=== PATIENT | male | born 2005 | race Hispanic/Latino ===

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

== ENCOUNTER 2023-04-21 16:39 | Emergency (ER) | payer OTHER, SELFPAY ==
--- OUTSIDE RECORDS SUMMARY | 2023-04-21 16:43 | XMS REPORT | Continuity of Care Document ---
:2005 Author Organization [facility] t Address [address] [facility] [place] [address] Care Team Providers Name Role Phone LIEN CEE Primary Care Physician Unavailable LLUVIA SAMAYOA Attending Clinician Unavailable Lluvia Samayoa MD Attending Clinician Doctor Unassigned, [place] Attending Clinician Unavailable YARED MENDOSA Attending Clinician Unavailable HORTENSIA PAL Attending Clinician Unavailable Hortensia Pal PA-C Attending Clinician LIEN CEE Attending Clinician Unavailable Nurse, Dewey Pedlenka Attending Clinician Unavailable Lien Cee MD Attending Clinician BRAYAN NARVAEZ Attending Clinician Unavailable Brayan Narvaez DO Attending Clinician Thuy Waller MD Attending Clinician THUY WALLER Attending Clinician Unavailable Keira Richardson DO Attending Clinician PROMISE SALEEM Attending Clinician Unavailable Deniz Hines OT Attending Clinician Unavailable Promise Saleem MD Attending Clinician Madi Ivey MD Attending Clinician [phone] MADI IVEY Attending Clinician Unavailable Augustine Garza Attending Clinician AUGUSTINE KAYE Attending Clinician Unavailable Elisa Mejia MD Attending Clinician PROMISE SALEEM Admitting Clinician Unavailable Payers Payer Name Policy Type Policy Number Effective Date Expiration Date Penelope sparks [facility] [id number] 2017 00:00:00 [place] [id number] 2023 00:00:00 Problems Condition Condition Condition Status Onset Resolution Last Treating Co mments Source Name Details Category Date Date Treatment Clinician Date Right Right Disease Active Univers wrist pain wrist pain 6-08 it y of 00:00: Medical Branch Decreased Decreased Disease Active Uni vers range of range of 6-08 [place] wrist Branch Pain of Pain of Disease Active Univers right hand right hand 6-08 it y of 00:00: Medical Branch Decreased 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 Medications Ordered Filled Start Stop Current Ordering Indication Dosage Frequency Signature Comments Components Source Medication Medication Date Date Medication? Clinician (SIG) Name Name ondansetron 2021-0 Yes [id number] 4mg Take 1 Univers 4 mg 3-08 tablet by ity of disintegrat 00:00: mouth [place] ing tablet 00 every 8 Medica l (eight) Branch hours as needed for Nausea and Vomiting (N/V). ondansetron 0 Yes [id number] 4mg Take 1 Univers 4 mg 3-08 tablet by ity of disintegrat 00:00: mouth [place] ing tablet 00 every 8 Medica l (eight) Branch hours as needed for Nausea and Vomiting (N/V). ondansetron 0 Yes [id number] 4mg Take 1 Univers 4 mg 3-08 tablet by ity of disintegrat 00:00: mouth [place] ing tablet 00 every 8 Medica l (eight) Branch hours as needed for Nausea and Vomiting (N/V). ondansetron 0 Yes [id number] 4mg Take 1 Univers 4 mg 3-08 tablet by ity of disintegrat 00:00: mouth [place] ing tablet 00 every 8 Medica l (eight) Branch hours as needed for Nausea and Vomiting (N/V). FLUoxetine 0 Yes [id number] 20mg Take 1 U nivers 20 mg 8-05 capsule by ity of capsule 00:00: mouth [place] 00 daily. Medical Branch FLUoxetine 0 Yes [id number] 10mg Take 1 U nivers 10 mg 8-05 capsule by ity of capsule 00:00: mouth [place] 00 daily. Medical Branch hydrOXYzine 2020-0 Yes [id number] 25mg Take 1 Univers 25 mg 8-05 tablet by ity of tablet 00:00: mouth [place] 00 every 8 Medical (eight) Branch hours as needed for Anxiety. FLUoxetine 2020-0 Yes [id number] 20mg Take 1 U nivers 20 mg 8-05 capsule by ity of capsule 00:00: mouth [place] 00 daily. Medical Branch FLUoxetine 2020-0 Yes [id number] 10mg Take 1 U nivers 10 mg 8-05 capsule by ity of capsule 00:00: mouth [place] 00 daily. Medical Branch hydrOXYzine 2020-0 Yes [id number] 25mg Take 1 Univers 25 mg 8-05 tablet by ity of tablet 00:00: mouth [place] 00 every 8 Medical (eight) Branch hours as needed for Anxiety. FLUoxetine 2020-0 Yes [id number] 20mg Take 1 U nivers 20 mg 8-05 capsule by ity of capsule 00:00: mouth [place] 00 daily. Medical Branch FLUoxetine 0 Yes [id number] 10mg Take 1 U nivers 10 mg 8-05 capsule by ity of capsule 00:00: mouth [place] 00 daily. Medical Branch hydrOXYzine 0 Yes [id number] 25mg Take 1 Univers 25 mg 8-05 tablet by ity of tablet 00:00: mouth [place] 00 every 8 Medical (eight) Branch hours as needed for Anxiety. FLUoxetine 0 Yes [id number] 20mg Take 1 U nivers 20 mg 8-05 capsule by ity of capsule 00:00: mouth [place] 00 daily. Medical Branch FLUoxetine 0 Yes [id number] 10mg Take 1 U nivers 10 mg 8-05 capsule by ity of capsule 00:00: mouth [place] 00 daily. Medical Branch hydrOXYzine Yes [id number] 25mg Take 1 Univers 25 mg 8-05 tablet by ity of tablet 00:00: mouth [place] 00 every 8 Medical (eight) Branch hours as needed for Anxiety. FLUoxetine Yes [id number] 20mg Take 1 U nivers 20 mg 6-22 capsule by ity of capsule 00:00: mouth [place] 00 daily. Medical Branch FLUoxetine 0 Yes [id number] 20mg Take 1 U nivers 20 mg 6-22 capsule by ity of capsule 00:00: mouth [place] 00 daily. Medical Branch FLUoxetine 0 Yes [id number] 20mg Take 1 U nivers 20 mg 6-22 capsule by ity of capsule 00:00: mouth [place] 00 daily. Medical Branch FLUoxetine 0 Yes [id number] 20mg Take 1 U nivers 20 mg 6-22 capsule by ity of capsule 00:00: mouth [place] 00 daily. Medical Branch omeprazole 2020-0 Yes [id number] 20mg Take 1 Univers 20 mg 3-05 capsule by ity of capsule 00:00: mouth [place] 00 daily. Medical Branch omeprazole 2020-0 Yes [id number] 20mg Take 1 Univers 20 mg 3-05 capsule by ity of capsule 00:00: mouth [place] 00 daily. Medical Branch omeprazole 2020-0 Yes [id number] 20mg Take 1 Univers 20 mg 3-05 capsule by ity of capsule 00:00: mouth [place] 00 daily. Medical Branch omeprazole 0 Yes [id number] 20mg Take 1 Univers 20 mg 3-05 capsule by ity of capsule 00:00: mouth [place] [address] [facility] Immunizations Ordered Immunization Filled Immunization Date Status Commen ts Source Name Name Meningococcal 2020-11-16 Completed University of Polysaccharide 00:00:00 [place] Medi eladia (groups A, C, Y and Branc h W-135) conjugate vaccine (MCV4P) Meningococcal B, OMV 2020-11-16 Completed Univ ersity of 00:00:00 [facility] Meningococcal 2020-11-16 Completed University of Polysaccharide 00:00:00 [place] Medi eladia (groups A, C, Y and Branc h W-135) conjugate vaccine (MCV4P) Meningococcal B, OMV 2020-11-16 Completed Univ ersity of 00:00:00 [facility] Meningococcal 2020-11-16 Completed University of Polysaccharide 00:00:00 [place] Medi eladia (groups A, C, Y and Branc h W-135) conjugate vaccine (MCV4P) Meningococcal B, OMV 2020-11-16 Completed Univ ersity of 00:00:00 [facility] Meningococcal 2020-11-16 Completed University of Polysaccharide 00:00:00 [place] Medi eladia (groups A, C, Y and Branc h W-135) conjugate vaccine (MCV4P) Meningococcal B, OMV 2020-11-16 Completed Univ ersity of 00:00:00 [facility] HPV 2016-03-01 Completed University of 00:00:00 [facility] HPV 2016-03-01 Completed University of 00:00:00 [facility] HPV 2016-03-01 Completed University of 00:00:00 [facility] HPV 2016-03-01 Completed University of 00:00:00 [facility] HPV 2014-11-25 Completed University of 00:00:00 [facility] TDAP 2014-11-25 Completed University of 00:00:00 [facility] Meningococcal 2014-11-25 Completed University of Polysaccharide 00:00:00 [place] Medi eladia (groups A, C, Y and Branc h W-135) conjugate vaccine (MCV4P) HPV 2014-11-25 Completed University of 00:00:00 [facility] TDAP 2014-11-25 Completed University of 00:00:00 [facility] Meningococcal 2014-11-25 Completed University of Polysaccharide 00:00:00 [place] Medi eladia (groups A, C, Y and Branc h W-135) conjugate vaccine (MCV4P) HPV 2014-11-25 Completed University of 00:00:00 [facility] TDAP 2014-11-25 Completed University of 00:00:00 [facility] Meningococcal 2014-11-25 Completed University of Polysaccharide 00:00:00 [place] Medi eladia (groups A, C, Y and Branc h W-135) conjugate vaccine (MCV4P) HPV 2014-11-25 Completed University of 00:00:00 [facility] TDAP 2014-11-25 Completed University of 00:00:00 [facility] Meningococcal 2014-11-25 Completed University of Polysaccharide 00:00:00 [place] Medi eladia (groups A, C, Y and Branc h W-135) conjugate vaccine (MCV4P) DTAP 2007-10-24 Completed University of 00:00:00 [facility] MMR 2007-10-24 Completed University of 00:00:00 [facility] Polio (IPV/OPV) 2007-10-24 Completed Universit y of 00:00:00 [facility] Varicella 2007-10-24 Completed University of (varivax)(chicken 00:00:00 [place] M edical pox) Branch DTAP 2007-10-24 Completed University of 00:00:00 [facility] MMR 2007-10-24 Completed University of 00:00:00 [facility] Polio (IPV/OPV) 2007-10-24 Completed Universit y of 00:00:00 [facility] Varicella 2007-10-24 Completed University of (varivax)(chicken 00:00:00 [place] M edical pox) Branch DTAP 2007-10-24 Completed University of 00:00:00 [facility] MMR 2007-10-24 Completed University of 00:00:00 [facility] Polio (IPV/OPV) 2007-10-24 Completed Universit y of 00:00:00 [facility] Varicella 2007-10-24 Completed University of (varivax)(chicken 00:00:00 [place] M edical pox) Branch DTAP 2007-10-24 Completed University of 00:00:00 [facility] MMR 2007-10-24 Completed University of 00:00:00 [facility] Polio (IPV/OPV) 2007-10-24 Completed Universit y of 00:00:00 [facility] Varicella 2007-10-24 Completed University of (varivax)(chicken 00:00:00 [place] M edical pox) Branch HEPATITIS A 2006-09-24 Completed University of 00:00:00 [facility] HEPATITIS A 2006-09-24 Completed University of 00:00:00 [facility] HEPATITIS A 2006-09-24 Completed University of 00:00:00 [facility] HEPATITIS A 2006-09-24 Completed University of 00:00:00 [facility] HEPATITIS A 2005-09-26 Completed University of 00:00:00 [facility] HEPATITIS A 2005-09-26 Completed University of 00:00:00 [facility] HEPATITIS A 2005-09-26 Completed University of 00:00:00 [facility] HEPATITIS A 2005-09-26 Completed University of 00:00:00 [facility] DTAP 2005-02-09 Completed University of 00:00:00 [facility] Pneumococcal 7 2005-02-09 Completed University of Conjugate, PCV7 00:00:00 [place] Med ical (Prevnar7) Branch Pneumococcal 13 2005-02-09 Completed Universit y of Conjugate, PCV13 00:00:00 [place] Me dical (Prevnar 13) Branch DTAP 2005-02-09 Completed University of 00:00:00 [facility] Pneumococcal 7 2005-02-09 Completed University of Conjugate, PCV7 00:00:00 [place] Med ical (Prevnar7) Branch Pneumococcal 13 2005-02-09 Completed Universit y of Conjugate, PCV13 00:00:00 [place] Me dical (Prevnar 13) Branch Pneumococcal 13 2005-02-09 Completed Universit y of Conjugate, PCV13 00:00:00 [place] Me dical (Prevnar 13) Branch Pneumococcal 13 2005-02-09 Completed Universit y of Conjugate, PCV13 00:00:00 [place] Me dical (Prevnar 13) Branch HIB 4 Dose Schedule 2004 Completed Unive rsity of 00:00:00 [facility] MMR 2004 Completed University of 00:00:00 [facility] Varicella 2004 Completed University of (varivax)(chicken 00:00:00 [place] M edical pox) Branch HIB 4 Dose Schedule 2004 Completed Unive rsity of 00:00:00 [facility] MMR 2004 Completed University of 00:00:00 [facility] Branch Varicella 2004 Completed University of (varivax)(chicken 00:00:00 [place] M edical pox) Branch HIB 4 Dose Schedule 2004 Completed Unive rsity of 00:00:00 [place] [facility] MMR 2004 Completed University of 00:00:00 [facility] Branch Varicella 2004 Completed University of (varivax)(chicken 00:00:00 [place] M edical pox) Branch HIB 4 Dose Schedule 2004 Completed Unive rsity of 00:00:00 [facility] Branch MMR 2004 Completed University of 00:00:00 [facility] Branch Varicella 2004 Completed University of (varivax)(chicken 00:00:00 [place] M edical pox) Branch Pneumococcal 7 2004-07-11 Completed University of Conjugate, PCV7 00:00:00 [place] Med ical (Prevnar7) Branch Pneumococcal 13 2004-07-11 Completed Universit y of Conjugate, PCV13 00:00:00 [place] Tn dical (Prevnar 13) Branch Pneumococcal 7 2004-07-11 Completed University of Conjugate, PCV7 00:00:00 [place] [facility] ical (Prevnar7) Branch Pneumococcal 13 2004-07-11 Completed Universit y of Conjugate, PCV13 00:00:00 [place] Me dical (Prevnar 13) Branch Pneumococcal 13 2004-07-11 Completed Universit y of Conjugate, PCV13 00:00:00 [place] Me dical (Prevnar 13) Branch Pneumococcal 13 2004-07-11 Completed Universit y of Conjugate, PCV13 00:00:00 [place] Tn dical (Prevnar 13) Branch HIB 4 Dose Schedule 2004-04-22 Completed Unive rsity of 00:00:00 [facility] Pediarix (dtap/hep 2004-04-22 Completed Univer sity of B/ipv) 00:00:00 [facility] HIB 4 Dose Schedule 2004-04-22 Completed Unive rsity of 00:00:00 [facility] Pediarix (dtap/hep 2004-04-22 Completed Univer sity of B/ipv) 00:00:00 [facility] Pediarix (dtap/hep 2004-02-25 Completed Univer sity of B/ipv) 00:00:00 [place] [facility] Pneumococcal 7 2004-02-25 Completed University of Conjugate, PCV7 00:00:00 [place] [facility] ical (Prevnar7) Branch Pneumococcal 13 2004-02-25 Completed Universit y of Conjugate, PCV13 00:00:00 [place] Me dical (Prevnar 13) Branch Pediarix (dtap/hep 2004-02-25 Completed Univer sity of B/ipv) 00:00:00 [facility] Pneumococcal 7 2004-02-25 Completed University of Conjugate, PCV7 00:00:00 [place] Med ical (Prevnar7) Branch Pneumococcal 13 2004-02-25 Completed Universit y of Conjugate, PCV13 00:00:00 [place] Me dical (Prevnar 13) Branch Pneumococcal 13 2004-02-25 Completed Universit y of Conjugate, PCV13 00:00:00 [place] Me dical (Prevnar 13) Branch Pneumococcal 13 2004-02-25 Completed Universit y of Conjugate, PCV13 00:00:00 [place] Me dical (Prevnar 13) Branch HIB 4 Dose Schedule 2004-02-19 Completed Unive rsity of 00:00:00 [facility] HIB 4 Dose Schedule 2004-02-19 Completed Unive rsity of 00:00:00 [facility] HIB 4 Dose Schedule 2003 Completed Unive rsity of 00:00:00 [facility] Pediarix (dtap/hep 2003 Completed Univer sity of B/ipv) 00:00:00 [facility] Pneumococcal 7 2003 Completed University of Conjugate, PCV7 00:00:00 [place] Med ical (Prevnar7) Branch Pneumococcal 13 2003 Completed Universit y of Conjugate, PCV13 00:00:00 [place] Me dical (Prevnar 13) Branch HIB 4 Dose Schedule 2003 Completed Unive rsity of 00:00:00 [facility] Pediarix (dtap/hep 2003 Completed Univer sity of B/ipv) 00:00:00 [facility] Pneumococcal 7 2003 Completed University of Conjugate, PCV7 00:00:00 [place] [facility] ical (Prevnar7) Branch Pneumococcal 13 2003 Completed Universit y of Conjugate, PCV13 00:00:00 [place] Me dical (Prevnar 13) Branch Pneumococcal 13 2003 Completed Universit y of Conjugate, PCV13 00:00:00 [place] Me dical (Prevnar 13) Branch Pneumococcal 13 2003 Completed Universit y of Conjugate, PCV13 00:00:00 [facility] dical (Prevnar 13) Branch Hep B, Adol or Pedi 2003 Completed Unive rsity of Dosage 00:00:00 [facility] Hep B, Adol or Pedi 2003 Completed Unive rsity of Dosage 00:00:00 [facility] Vital Signs Vital Name Observation Time Observation Value Comments Source Systolic blood 2021-12-27 19:33:00 118 mm[Hg] Univer sity of pressure [facility] Diastolic blood 2021-12-27 19:33:00 77 mm[Hg] Unive rsity of pressure [facility] Heart rate 2021-12-27 19:33:00 93 /min [facility] Respiratory rate 2021-12-27 19:33:00 16 /min Univ ersity [facility] Body weight 2021-12-27 19:33:00 39.179 kg [facility] Procedures Procedure Date / Time Performing Clinician Source Performed [employer]URANCE [employer]RESPONDENCE 2023-02-10 05:01:00 Doctor Unassigned, [facility] [place] [facility] Encounters Start End Encounter Admission Attending Care Care Encounter Source Date/Time Date/Time Type Type Clinicians Facility Department ID 2021-07-18 Emergency [facility] [id number] [facility] [place] [facility] 08:31:39 [facility] 2023-04-03 2023-04-03 [id number] [facility] [place] [facility] 14:00:00 14:00:00 LLUVIA [facility] 2023-03-23 2023-03-23 [facility] [id number] [facility] [place] [facility] 14:00:00 14:00:00 LLUVIA [facility] 2023-03-23 2023-03-23 Letter Yao [facility] [id number] [facility] [place] [facility] 00:00:00 00:00:00 (Out) Lluvia PERALTA [id number] i ty amber STEW[place] 4.2.7.2.686 Samy GAMBLE [phone] Me dical NAL 044 Branch BUILDING 2023-02-10 2023-02-10 Orders Doctor ALEX [id number] Univers 00:00:00 00:00:00 Only Unassigned, ANDRE [id number] ity of [place] [facility] 4.2.7.2.686 Dong as [phone] [facility] 009 [place] 2022-01-10 2022-01-10 Outpatient R NAVYA [facility] [id number] Univers 13:00:00 13:00:00 YARED bairdkamini [facility] 2021-12-27 2021-12-27 [facility] [id number] Univers 14:30:00 15:03:18 , HORTENSIA cagle [facility] 2021-12-27 2021-12-27 Office [facility] [id number] Univers 14:30:00 15:03:18 Visit , Hortensia GUPTA [id number] it y of PEDIATRIC 4.2.7.2.686 [id number] [address] 2021-12-27 2021-12-27 [facility] [id number] Univers 14:30:00 15:03:18 , HORTENSIA cagle [facility] 2021-12-14 2021-12-14 Outpatient R LIEN CEE [facility] [id number] Univers 08:40:00 08:53:05 ity [facility] 2021-12-14 2021-12-14 Echocardiography Radiology Technologist Nurse, Dewey Beverly [facility] [id number] Univers 08:40:00 08:53:05 Visit Lien Cee [id number] ity of PEDIATRIC 4.2.7.2.686 [facility] [id number] [address] 2021-12-13 2021-12-13 Outpatient R [facility] [id number] Univers 09:50:00 10:37:19 , HORTENSIA cagle [facility] 2021-12-13 2021-12-13 [facility] [id number] Univers 09:50:00 10:37:19 , HORTENSIA cagle [facility] 2021-12-13 2021-12-13 Outpatient R CLEMENTINABELLE [facility] [id number] Univers 08:10:00 08:10:00 , HORTENSIA cagle [facility] 2021-12-13 2021-12-13 Orders Doctor JOHNSON [id number] Univers 00:00:00 00:00:00 Only Unassigned, ANDRE [id number] ity of [place] [facility] 4.2.7.2.686 Dong [phone] [facility] 009 Branch 2021-11-22 2021-11-22 Emergency X [facility] ERT [id number] Univers 09:12:00 09:48:00 BRAYAN briekamini [facility] 2021-11-22 2021-11-22 Emergency [facility] [id number] Univers 09:12:00 09:48:00 Brayan PERALTA [id number] i [facility] 4.2.7.2.686 [facility] [phone] [facility] 084 Branch 2021-05-30 2021-05-30 Outpatient R CLEMENTINABELLE [facility] [id number] Univers 15:50:00 15:50:00 , HORTENSIA cagle [facility] 2021-04-21 2021-04-21 Office Sridhar [facility] Vadim [id number] Univers 11:06:47 11:56:04 Visit Thuy Gupta [id number] ity of [place].2.686 [place] [facility] [phone] [facility] 225 Branch 2021-04-21 2021-04-21 Outpatient Ryan WALLER [facility] [id number] Univers 10:40:00 10:40:00 THUY cagle [facility] 2021-04-21 2021-04-21 Letter Sridhar [facility] Vadim [id number] Univers 00:00:00 00:00:00 (Out) Thuy Gupta [id number] [place].2.686 [place] [facility] [id number] [address] 2021-04-05 2021-04-05 Outpatient R SRIDHAR [facility] [id number] Univers 11:20:00 11:20:00 THUY ity [facility] 2021-03-31 2021-03-31 Emergency Dylan [facility] 1.2.840.114 [id number] Univers 16:02:00 21:18:00 Keira Peralta 350.1.13.10 it[place]2.686 [place] [phone] [facility] 084 [place] 2021-03-17 2021-03-17 Telephone Lien Cee [facility] 1.2.840.114 [id number] Univers 00:00:00 00:00:00 Alonso 350.1.13.10 [place]7.2.686 [place] [facility] [id number] [address] 2021-03-08 2021-03-08 Office Lien Cee [facility] 1.2.840.114 [id number] Univers 10:58:33 11:51:15 Visit Alonso 350.1.13.10 [place] y [place].7.2.686 [place] [facility] [id number] [address] 2021-03-08 2021-03-08 Outpatient R LIEN CEE [facility] [id number] Univers 11:20:00 11:20:00 ity of [facility] 2021-02-22 2021-02-22 Outpatient R HARPER [facility] [id number] Univers 10:45:00 11:45:47 PROMISE ity [facility] 2021-02-22 2021-02-22 Ancillary Deniz Hines [facility] 1.2. [id number] [id number] Univers 10:40:09 11:45:47 Visit Promise Saleem 350.1.13.10 it[place].686 [place] [facility] [phone] Tn dical [facility] 178 [facility] 2021-02-012021-02-01 [facility] [id number] Univers 10:23:45 11:20:58 Visit Madi [id number] [facility] 4.2.7.2.686 [facility] [place] [facility] AT [id number] Tn herminia [facility]ORY 198 [facility] 2021-02-01 2021-02-01 [facility] [id number] Univers 10:40:00 10:40:00 MADI itkamini [facility] 2021-01-28 2021-01-28 [facility] 1.2.840.114 [id number] Univers 09:43:18 09:58:18 Visit [facility] [id number] it y of Surgical 4.2.7.2.686 Dong as Specialti [id number] Tn herminia es 198 [facility] 2021-01-28 2021-01-28 [facility] [id number] Univers 09:45:00 09:45:00 [facility] 2021-01-28 2021-01-28 [facility] [id number] Univers 00:00:00 00:00:00 (Out) [facility] [id number] it y of Surgical 4.2.7.2.686 Dong as Specialti [phone] Tn dicoleg es 198 [facility] 2021-01-13 2021-01-13 [facility] [id number] Univers 10:36:15 23:59:00 PROMISE cagle [facility] 2021-01-13 2021-01-13 [facility] 1.2.840.114 [id number] Univers 10:36:15 23:59:00 Encounter Promise [facility] [id number] itkamini [facility] 4.2.7.2.686 [facility] [phone] [facility] [address] 2021-01-13 2021-01-13 [facility]patient [facility] [id number] Univers 00:00:00 00:00:00 [facility] 2021-01-13 2021-01-13 Orders Doctor ALEX 1.2.840.114 [id number] Univers 00:00:00 00:00:00 Only Unassigned, ANDRE [id number] ity of [place] [facility] 4.2.7.2.686 Dong as [phone] [address] 2021-01-03 2021-01-03 [facility] [id number] Univers 00:00:00 00:00:00 [facility] 2020-12-24 2020-12-24 [facility] [id number] Univers 08:44:09 23:59:00 [facility] 2020-12-24 2020-12-24 [facility] [id number] Univers 08:44:09 23:59:00 [facility] 2020-12-24 2020-12-24 [facility] 1.2.840.114 [id number] Univers 08:44:09 23:59:00 Encounter [facility] [id number] ity of Surgical 4.2.7.2.686 Dong as Specialti [phone] Tn dical es 809 [facility] 2020-12-24 2020-12-24 Office [facility] [id number] Univers 08:30:48 09:19:56 Visit [facility] [id number] it y of Surgical 4.2.7.2.686 Dong as Specialti [phone] Me dical es 198 [facility] 2020-12-24 2020-12-24 Letter [facility] 1.2.840.114 [id number] Univers 00:00:00 00:00:00 (Out) [facility] [id number] it y of Surgical 4.2.7.2.686 Dong as Specialti [phone] Tn dical es 198 [facility] 2020-12-14 2020-12-14 Office Lien Cee [facility] 1.2.840.114 [id number] Univers 09:10:37 09:51:05 Visit Alonso [id number] it y of Pediatric 4.2.7.2.686 [facility] [id number] [address] 2020-12-14 2020-12-14 Outpatient R LIEN [facility] [id number] Univers 09:40:00 09:40:00 ity of [facility] 2020-11-17 2020-11-17 Telephone Lien Cee [facility] 1.2.840.114 [id number] Univers 00:00:00 00:00:00 Alonso [id number] it y of Pediatric 4.2.7.2.686 [facility] [phone] [address] 2020-11-16 2020-11-16 Billing Lien Cee [facility] 1.2.840.114 [id number] Univers 17:00:00 17:15:00 Encounter Alonso [id number] ity of Pediatric 4.2.7.2.686 [facility] [phone] [address] 2020-11-16 2020-11-16 Office Lien Cee [facility] 1.2.840.114 [id number] Univers 15:35:35 16:31:31 Visit Alonso [id number] it y of Pediatric 4.2.7.2.686 [facility] [phone] [address] 2020-11-16 2020-11-16 Outpatient R LIEN [facility] [id number] Univers 15:40:00 15:40:00 ity of [facility] 2020-11-16 2020-11-16 Orders Doctor ALEX 1.2.840.114 [id number] Univers 00:00:00 00:00:00 Only Unassigned, ANDRE [id number] ity of [place] [facility] 4.2.7.2.686 Dong as [phone] [place] [address] [place] 2019-05-23 2019-05-[address] [facility] 1.2.840.11 [id number] Univers 00:00:00 00:00:00 Elisa Weems [id number] ity of Pediatric 4.2.7.2.686 [facility] [phone] [address] 2019-05-12 2019-05-[address] [facility] 1.2.840.114 [id number] Univers 10:07:34 11:01:28 Visit Elisa Weems [id number] ity of Pediatric 4.2.7.2.686 [facility] [phone] [address] 2019-05-12 2019-05-[address] [facility] 1.2.840.114 [id number] [facility] 00:00:00 00:00:00 (Out) Elisa Weems [id number] ity of Pediatric 4.2.7.2.686 [place] [facility] [phone] [address] Results This patient has no known results.
[2023-04-21] MEDS ORDERED: KETOROLAC 30 MG/ML INJ ONE (17:29)
--- NOTE | 2023-04-21 17:37 | RAD REPORT ---
EXAM DESCRIPTION: RAD - Knee Right 3 View - 04/21/2023 5:29 pm CLINICAL HISTORY: PAIN COMPARISON: <Comparisons> FINDINGS: No acute fracture or dislocation is seen. Mild soft tissue thickening of the distal patell ar tendon noted which may indicate tendinitis.
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
[2023-04-21 18:41] VITALS: BP 120/76; TEMP 98.6; O2SAT 98
== END 2023-04-21 18:05 | disposition home or self-care (01) ==
LOC: ER 16:39
DX: M76.51 Patellar tendinitis, right knee (principal); Z88.1 Allergy status to other antibiotic agents
CPT/HCPCS: 96372; 99284

== ENCOUNTER 2023-04-23 22:03 | Emergency (ER) | payer SELFPAY ==
--- OUTSIDE RECORDS SUMMARY | 2023-04-23 22:07 | XMS REPORT | Continuity of Care Document ---
:2005 Author Organization [facility] t Address [address] [place] [address] Care Team Providers Name Role Phone LIEN CEE Primary Care Physician Unavailable LLUVIA SAMAYOA Attending Clinician Unavailable Lluvia Samayoa MD Attending Clinician Doctor Unassigned, [place] Attending Clinician Unavailable YARED MENDOSA Attending Clinician [...] Attending Clinician Madi Ivey MD Attending Clinician [phone] MADI IVEY Attending Clinician Unavailable Augustine Garza Attending Clinician AUGUSTINE KAYE Attending Clinician Unavailable Elisa Mejia MD Attending Clinician PROMISE SALEEM Admitting Clinician Unavailable Payers Payer Name Policy Type Policy Number Effective Date Expiration Date Penelope sparks [facility] [id number] 2017 00:00:00 [place] [id number] 2023 00:00:00 Problems Condition Condition Condition Status [...] Branch Decreased Decreased 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 00:00: [place] [...] INGREDI 4-24 ity of 00:00: [place] [facility] [place] Social History Social Habit Start Date Stop Date Quantity Comments Source Exposure to Not sure [facility] SARS-CoV-2 [facility] (event) [place] Tobacco use and 2018-01-08 2018-01-08 Smokeless tobacco Un iversity of exposure 00:00:00 00:00:00 non-user [facility] Sex Assigned At 2005 2003 Universit y of 00:00:00 00:00:00 [facility] Smoking Status Start Date Stop Date Source Never smoked tobacco [facility] Medications Ordered Filled Start Stop Current Ordering Indication Dosage Frequency Signature Comments Components Source Medication Medication Date Date Medication? Clinician (SIG) Name Name ondansetron 2021-0 Yes [id number] 4mg Take 1 Univers 4 mg 3-08 tablet by ity of disintegrat 00:00: mouth [place] ing tablet 00 every 8 Medica l (eight) Branch hours as needed for Nausea and Vomiting (N/V). ondansetron 0 Yes [id number] 4mg Take 1 Univers 4 mg 3-08 tablet by ity of disintegrat 00:00: mouth [place] ing tablet 00 every 8 Medica l (eight) Branch hours as needed for Nausea and Vomiting (N/V). ondansetron 0 Yes [id number] 4mg Take 1 Univers 4 mg 3-08 tablet by ity of disintegrat 00:00: mouth [place] ing tablet 00 every 8 Medica l (eight) Branch hours as needed for Nausea and Vomiting (N/V). ondansetron 0 Yes [id number] 4mg Take 1 Univers 4 mg 3-08 tablet by ity of disintegrat 00:00: mouth [place] ing tablet 00 every 8 Medica l (eight) Branch hours as needed for Nausea and Vomiting (N/V). FLUoxetine 0 Yes [id number] 20mg Take 1 U nivers 20 mg 8-05 capsule by ity of capsule 00:00: mouth [place] 00 daily. Medical Branch FLUoxetine 0 Yes [id number] 10mg Take 1 U nivers 10 mg 8-05 capsule by ity of capsule 00:00: mouth [place] 00 daily. Medical Branch hydrOXYzine 2020-0 Yes [id number] 25mg Take 1 Univers 25 mg 8-05 tablet by ity of tablet 00:00: mouth [place] 00 every 8 Medical (eight) Branch hours as needed for Anxiety. FLUoxetine 2020-0 Yes [id number] 20mg Take 1 U nivers 20 mg 8-05 capsule by ity of capsule 00:00: mouth [place] 00 daily. Medical Branch FLUoxetine 2020-0 Yes [id number] 10mg Take 1 U nivers 10 mg 8-05 capsule by ity of capsule 00:00: mouth [place] 00 daily. Medical Branch hydrOXYzine 2020-0 Yes [id number] 25mg Take 1 Univers 25 mg 8-05 tablet by ity of tablet 00:00: mouth [place] 00 every 8 Medical (eight) Branch hours as needed for Anxiety. FLUoxetine 2020-0 Yes [id number] 20mg Take 1 U nivers 20 mg 8-05 capsule by ity of capsule 00:00: mouth [place] 00 daily. Medical Branch FLUoxetine 0 Yes [id number] 10mg Take 1 U nivers 10 mg 8-05 capsule by ity of capsule 00:00: mouth [place] 00 daily. Medical Branch hydrOXYzine 0 Yes [id number] 25mg Take 1 Univers 25 mg 8-05 tablet by ity of tablet 00:00: mouth [place] 00 every 8 Medical (eight) Branch hours as needed for Anxiety. FLUoxetine 0 Yes [id number] 20mg Take 1 U nivers 20 mg 8-05 capsule by ity of capsule 00:00: mouth [place] 00 daily. Medical Branch FLUoxetine 0 Yes [id number] 10mg Take 1 U nivers 10 mg 8-05 capsule by ity of capsule 00:00: mouth [place] 00 daily. Medical Branch hydrOXYzine Yes [id number] 25mg Take 1 Univers 25 mg 8-05 tablet by ity of tablet 00:00: mouth [place] 00 every 8 Medical (eight) Branch hours as needed for Anxiety. FLUoxetine Yes [id number] 20mg Take 1 U nivers 20 mg 6-22 capsule by ity of capsule 00:00: mouth [place] 00 daily. Medical Branch FLUoxetine 0 Yes [id number] 20mg Take 1 U nivers 20 mg 6-22 capsule by ity of capsule 00:00: mouth [place] 00 daily. Medical Branch FLUoxetine 0 Yes [id number] 20mg Take 1 U nivers 20 mg 6-22 capsule by ity of capsule 00:00: mouth [place] 00 daily. Medical Branch FLUoxetine 0 Yes [id number] 20mg Take 1 U nivers 20 mg 6-22 capsule by ity of capsule 00:00: mouth [place] 00 daily. Medical Branch omeprazole 2020-0 Yes [id number] 20mg Take 1 Univers 20 mg 3-05 capsule by ity of capsule 00:00: mouth [place] 00 daily. Medical Branch omeprazole 2020-0 Yes [id number] 20mg Take 1 Univers 20 mg 3-05 capsule by ity of capsule 00:00: mouth [place] 00 daily. Medical Branch omeprazole 2020-0 Yes [id number] 20mg Take 1 Univers 20 mg 3-05 capsule by ity of capsule 00:00: mouth [place] 00 daily. Medical Branch omeprazole 0 Yes [id number] 20mg Take 1 Univers 20 mg 3-05 capsule by ity of capsule 00:00: mouth [place] 00 daily. [facility] Immunizations Ordered Immunization Filled Immunization Date Status Commen ts Source Name Name Meningococcal 2020-11-16 Completed University of Polysaccharide 00:00:00 [place] [facility] (groups A, C, Y and Branc h W-135) conjugate vaccine (MCV4P) Meningococcal B, OMV 2020-11-16 Completed Univ ersity of 00:00:00 [facility] Meningococcal 2020-11-16 Completed University of Polysaccharide 00:00:00 [place] Med[facility] eladia (groups A, C, Y and Branc h W-135) conjugate vaccine (MCV4P) Meningococcal B, OMV 2020-11-16 Completed Univ ersity of 00:00:00 [facility] Meningococcal 2020-11-16 Completed University of Polysaccharide 00:00:00 [place] Medi eladia (groups A, C, Y and Branc h W-135) conjugate vaccine (MCV4P) Meningococcal B, OMV 2020-11-16 Completed Univ ersity of 00:00:00 [facility] Meningococcal 2020-11-16 Completed University of Polysaccharide 00:00:00 [place] Medi eladia (groups A, C, Y and Branc h W-135) conjugate vaccine (MCV4P) Meningococcal B, OMV 2020-11-16 Completed Univ ersity of 00:00:00 [facility] HPV 2016-03-01 Completed University of 00:00:00 [facility] HPV 2016-03-01 Completed University of 00:00:00 [facility] HPV 2016-03-01 Completed University of 00:00:00 [facility] HPV 2016-03-01 Completed University of 00:00:00 [facility] HPV 2014-11-25 Completed University of 00:00:00 [facility] TDAP 2014-11-25 Completed University of 00:00:00 [facility] Meningococcal 2014-11-25 Completed University of Polysaccharide 00:00:00 [place] Medi eladia (groups A, C, Y and Branc h W-135) conjugate vaccine (MCV4P) HPV 2014-11-25 Completed University of 00:00:00 [facility] TDAP 2014-11-25 Completed University of 00:00:00 [facility] Meningococcal 2014-11-25 Completed University of Polysaccharide 00:00:00 [place] Medi eladia (groups A, C, Y and Branc h W-135) conjugate vaccine (MCV4P) HPV 2014-11-25 Completed University of 00:00:00 [facility] TDAP 2014-11-25 Completed University of 00:00:00 [facility] Meningococcal 2014-11-25 Completed University of Polysaccharide 00:00:00 [place] Medi eladia (groups A, C, Y and Branc h W-135) conjugate vaccine (MCV4P) HPV 2014-11-25 Completed University of 00:00:00 [facility] TDAP 2014-11-25 Completed University of 00:00:00 [facility] Meningococcal 2014-11-25 Completed University of Polysaccharide 00:00:00 [place] Medi eladia (groups A, C, Y and Branc h W-135) conjugate vaccine (MCV4P) DTAP 2007-10-24 Completed University of 00:00:00 [facility] MMR 2007-10-24 Completed University of 00:00:00 [facility] Polio (IPV/OPV) 2007-10-24 Completed Universit y of 00:00:00 [facility] Varicella 2007-10-24 Completed University of (varivax)(chicken 00:00:00 [place] M [facility]ical pox) Branch DTAP 2007-10-24 Completed University of 00:00:00 [facility] MMR 2007-10-24 Completed University of 00:00:00 [facility] Polio (IPV/OPV) 2007-10-24 Completed Universit y of 00:00:00 [facility] Varicella 2007-10-24 Completed University of (varivax)(chicken 00:00:00 [place] [facility] pox) Branch DTAP 2007-10-24 Completed University of 00:00:00 [facility] MMR 2007-10-24 Completed University of 00:00:00 [facility] Polio (IPV/OPV) 2007-10-24 Completed Universit y of 00:00:00 [facility] Varicella 2007-10-24 Completed University of (varivax)(chicken 00:00:00 [place] M [facility] pox) Branch DTAP 2007-10-24 Completed University of 00:00:00 [facility] MMR 2007-10-24 Completed University of 00:00:00 [facility] Polio (IPV/OPV) 2007-10-24 Completed Universit y of 00:00:00 [facility] Varicella 2007-10-24 Completed University of (varivax)(chicken 00:00:00 [place] [facility] pox) Branch HEPATITIS A 2006-09-24 Completed University of 00:00:00 [facility] HEPATITIS A 2006-09-24 Completed University of 00:00:00 [facility] HEPATITIS A 2006-09-24 Completed University of 00:00:00 [facility] HEPATITIS A 2006-09-24 Completed University of 00:00:00 [facility] HEPATITIS A 2005-09-26 Completed University of 00:00:00 [facility] HEPATITIS A 2005-09-26 Completed University of 00:00:00 [facility] HEPATITIS A 2005-09-26 Completed University of 00:00:00 [facility] HEPATITIS A 2005-09-26 Completed University of 00:00:00 [facility] DTAP 2005-02-09 Completed University of 00:00:00 [facility] Pneumococcal 7 2005-02-09 Completed University of Conjugate, PCV7 00:00:00 [place] Med ical (Prevnar7) Branch Pneumococcal 13 2005-02-09 Completed Universit y of Conjugate, PCV13 00:00:00 [place] Me dical (Prevnar 13) Branch DTAP 2005-02-09 Completed University of 00:00:00 [facility] Pneumococcal 7 2005-02-09 Completed University of Conjugate, PCV7 00:00:00 [place] [facility] ical (Prevnar7) Branch Pneumococcal 13 2005-02-09 Completed Universit y of Conjugate, PCV13 00:00:00 [place] Me dical (Prevnar 13) Branch Pneumococcal 13 2005-02-09 Completed Universit y of Conjugate, PCV13 00:00:00 [place] Me dical (Prevnar 13) Branch Pneumococcal 13 2005-02-09 Completed Universit y of Conjugate, PCV13 00:00:00 [place] Me dical (Prevnar 13) Branch HIB 4 Dose Schedule 2004 Completed Unive rsity of 00:00:00 [facility] MMR 2004 Completed University of 00:00:00 [facility] Varicella 2004 Completed University of (varivax)(chicken 00:00:00 [place] M [facility]ical pox) Branch HIB 4 Dose Schedule 2004 Completed Unive rsity of 00:00:00 [facility] MMR 2004 Completed University of 00:00:00 [facility] Branch Varicella 2004 Completed University of (varivax)(chicken 00:00:00 [place] M edical pox) Branch HIB 4 Dose Schedule 2004 Completed Unive rsity of 00:00:00 [place] [facility] MMR 2004 Completed University of 00:00:00 [facility] Branch Varicella 2004 Completed University of (varivax)(chicken 00:00:00 [place] M edical pox) Branch HIB 4 Dose Schedule 2004 Completed Unive rsity of 00:00:00 [facility] Branch MMR 2004 Completed University of 00:00:00 [facility] Branch Varicella 2004 Completed University of (varivax)(chicken 00:00:00 [place] M edical pox) Branch Pneumococcal 7 2004-07-11 Completed University of Conjugate, PCV7 00:00:00 [place] Med ical (Prevnar7) Branch Pneumococcal 13 2004-07-11 Completed Universit y of Conjugate, PCV13 00:00:00 [place] Nd dical (Prevnar 13) Branch Pneumococcal 7 2004-07-11 Completed University of Conjugate, PCV7 00:00:00 [place] [facility] ical (Prevnar7) Branch Pneumococcal 13 2004-07-11 Completed Universit y of Conjugate, PCV13 00:00:00 [place] Me dical (Prevnar 13) Branch Pneumococcal 13 2004-07-11 Completed Universit y of Conjugate, PCV13 00:00:00 [place] Me dical (Prevnar 13) Branch Pneumococcal 13 2004-07-11 Completed Universit y of Conjugate, PCV13 00:00:00 [place] Nd dical (Prevnar 13) Branch HIB 4 Dose Schedule 2004-04-22 Completed Unive rsity of 00:00:00 [facility] Pediarix (dtap/hep 2004-04-22 Completed Univer sity of B/ipv) 00:00:00 [facility] HIB 4 Dose Schedule 2004-04-22 Completed Unive rsity of 00:00:00 [facility] Pediarix (dtap/hep 2004-04-22 Completed Univer sity of B/ipv) 00:00:00 [facility] Pediarix (dtap/hep 2004-02-25 Completed Univer sity of B/ipv) 00:00:00 [place] [facility] Pneumococcal 7 2004-02-25 Completed University of Conjugate, PCV7 00:00:00 [place] [facility] ical (Prevnar7) Branch Pneumococcal 13 2004-02-25 Completed Universit y of Conjugate, PCV13 00:00:00 [place] Me dical (Prevnar 13) Branch Pediarix (dtap/hep 2004-02-25 Completed Univer sity of B/ipv) 00:00:00 [facility] Pneumococcal 7 2004-02-25 Completed University of Conjugate, PCV7 00:00:00 [place] [facility] ical (Prevnar7) Branch Pneumococcal 13 2004-02-25 Completed Universit y of Conjugate, PCV13 00:00:00 [place] Me dical (Prevnar 13) Branch Pneumococcal 13 2004-02-25 Completed Universit y of Conjugate, PCV13 00:00:00 [place] Me dical (Prevnar 13) Branch Pneumococcal 13 2004-02-25 Completed Universit y of Conjugate, PCV13 00:00:00 [place] Me dical (Prevnar 13) Branch HIB 4 Dose Schedule 2004-02-19 Completed Unive rsity of 00:00:00 [facility] HIB 4 Dose Schedule 2004-02-19 Completed Unive rsity of 00:00:00 [facility] HIB 4 Dose Schedule 2003 Completed Unive rsity of 00:00:00 [facility] Pediarix (dtap/hep 2003 Completed Univer sity of B/ipv) 00:00:00 [facility] Pneumococcal 7 2003 Completed University of Conjugate, PCV7 00:00:00 [place] [facility] ical (Prevnar7) Branch Pneumococcal 13 2003 Completed Universit y of Conjugate, PCV13 00:00:00 [place] Me dical (Prevnar 13) Branch HIB 4 Dose Schedule 2003 Completed Unive rsity of 00:00:00 [facility] Pediarix (dtap/hep 2003 Completed Univer sity of B/ipv) 00:00:00 [facility] Pneumococcal 7 2003 Completed University of Conjugate, PCV7 00:00:00 [place] [facility] ical (Prevnar7) Branch Pneumococcal 13 2003 Completed Universit y of Conjugate, PCV13 00:00:00 [place] Me dical (Prevnar 13) Branch Pneumococcal 13 2003 Completed Universit y of Conjugate, PCV13 00:00:00 [place] Me dical (Prevnar 13) Branch Pneumococcal 13 2003 Completed Universit y of Conjugate, PCV13 00:00:00 [facility] dical (Prevnar 13) Branch Hep B, Adol or Pedi 2003 Completed Unive rsity of Dosage 00:00:00 [facility] Hep B, Adol or Pedi 2003 Completed Unive rsity of Dosage 00:00:00 [facility] Vital Signs Vital Name Observation Time Observation Value Comments Source Systolic blood 2021-12-27 19:33:00 118 mm[Hg] Univer sity of pressure [facility] Diastolic blood 2021-12-27 19:33:00 77 mm[Hg] Unive rsity of pressure [facility] Heart rate 2021-12-27 19:33:00 93 /min [facility] Respiratory rate 2021-12-27 19:33:00 16 /min Univ ersity [facility] Body weight 2021-12-27 19:33:00 39.179 kg [facility] Procedures Procedure Date / Time Performing Clinician Source Performed [employer] [employer] 2023-02-10 05:01:00 Doctor Unassigned, [facility] [place] [facility] Encounters Start End Encounter Admission Attending Care Care Encounter Source Date/Time Date/Time Type Type Clinicians Facility Department ID 2021-07-18 Emergency [facility] [id number] [facility] 08:31:39 [facility] 2023-04-03 2023-04-03 [id number] [facility] 14:00:00 14:00:00 LLUVIA [facility] 2023-03-23 2023-03-23 [facility] [id number] [facility] 14:00:00 14:00:00 LLUVIA [facility] 2023-03-23 2023-03-23 Letter Yao [facility] 1.2.840.114 [id number] [facility] 00:00:00 00:00:00 (Out) Lluvia PERALTA [id number] i ty amber [place]EW[place] 4.2.7.2.686 Samy GAMBLE [id number] Me dical NAL 044 Branch BUILDING 2023-02-10 2023-02-10 Orders Doctor ALEX 1.2.840.114 [id number] Univers 00:00:00 00:00:00 Only Unassigned, ANDRE 350.1.13.10 ity of [place] [facility] 4.2.7.2.[phone] [facility] 009 [place] 2022-01-10 2022-01-10 Outpatient R NAVYA [facility] [id number] Univers 13:00:00 13:00:00 YARED bairdkamini [facility] 2021-12-27 2021-12-27 [facility] [id number] Univers 14:30:00 15:03:18 , HORTENSIA [facility] 2021-12-27 2021-12-27 Office [facility] [id number] Univers 14:30:00 15:03:18 Visit , Hortensia GUPTA 350.1.13.10 it y of [facility]ATR[id number] [address] 2021-12-27 2021-12-27 [facility] [id number] Univers 14:30:00 15:03:18 , HORTENSIA [facility] 2021-12-14 2021-12-14 Outpatient R LIEN CEE [facility] [id number] Univers 08:40:00 08:53:05 ity [facility] 2021-12-14 2021-12-14 Varnish Mixer Nurse, Dewey Beverly [facility] [id number] [id number] Univers 08:40:00 08:53:05 Visit Lien Cee 350.1.13.10 ity of PEDIATRIC [facility].7.2.686 [facility] [id number] [address] 2021-12-13 2021-12-13 Outpatient R [facility] [id number] Univers 09:50:00 10:37:19 , HORTENSIA [facility] 2021-12-13 2021-12-13 [facility] [id number] Univers 09:50:00 10:37:19 , HORTENSIA [facility] 2021-12-13 2021-12-13 Outpatient R CLEMENTINABELLE [facility] [id number] Univers 08:10:00 08:10:00 , HORTENSIA [facility] 2021-12-13 2021-12-13 Orders Doctor JOHNSON [id number] Univers 00:00:00 00:00:00 Only Unassigned, ANDRE 350.1.13.10 ity of [place] [facility] 4.2.7.2.[phone] [facility] 009 Branch 2021-11-22 2021-11-22 Emergency X [facility] ERT [id number] Univers 09:12:00 09:48:00 BRAYAN briekamini [facility] 2021-11-22 2021-11-22 Emergency [facility] [id number] Univers 09:12:00 09:48:00 Brayan PERALTA 350.1.13.10 i [facility] 4.2.7.2.686 [facility] [id number] [facility] 084 Branch 2021-05-30 2021-05-30 Outpatient R CLEMENTINABELLE [facility] [id number] Univers 15:50:00 15:50:00 , HORTENSIA [facility] 2021-04-21 2021-04-21 Office Sridhar [facility] Vadim 1.2.840.114 [id number] Univers 11:06:47 11:56:04 Visit Thuy Gupta 350.1.13.10 ity of Pediatric 4.2.7.2.[address] [facility] [id number] [facility] 225 Branch 2021-04-21 2021-04-21 Outpatient Ryan WALLER [facility] [id number] Univers 10:40:00 10:40:00 THUY [facility] 2021-04-21 2021-04-21 Letter Sridhar [facility] Vadim 1.2.840.114 [id number] Univers 00:00:00 00:00:00 (Out) Thuy Gupta 350.1.13.10 [facility] [place]7.2.[place] [facility] [id number] [address] 2021-04-05 2021-04-05 Outpatient R SRIDHAR [facility] [id number] Univers 11:20:00 11:20:00 THUY ity [facility] 2021-03-31 2021-03-31 Emergency Dylan [facility] 1.2.840.114 [id number] Univers 16:02:00 21:18:00 Keira Peralta 350.1.13.10 [place] [id number] [facility] 084 [place] 2021-03-17 2021-03-17 Telephone Lien Cee [facility] 1.2.840.114 [id number] Univers 00:00:00 00:00:00 Alonso 350.1.13.10 [place] [facility] [place].2.[place] [facility] [id number] [address] 2021-03-08 2021-03-08 Office Lien Cee [facility] 1.2.840.114 [id number] Univers 10:58:33 11:51:15 Visit Alonso 350.1.13.10 [place] [facility] [place]7.2.[place] [facility] [facility] [id number] [address] 2021-03-08 2021-03-08 Outpatient R LIEN CEE [facility] [id number] Univers 11:20:00 11:20:00 ity of [facility] 2021-02-22 2021-02-22 Outpatient R HARPER [facility] [id number] Univers 10:45:00 11:45:47 PROMISE ity [facility] 2021-02-22 2021-02-22 Ancillary Deniz Hines [facility] 1.2. 840.114 [id number] Univers 10:40:09 11:45:47 Visit Promise Saleem 350.1.13.10 ity of [place] 4.2.7.2.[address] [facility] [phone] Nd dical formerly [facility] 178 [facility] 2021-02-012021-02-01 Office [facility] [id number] Univers 10:23:45 11:20:58 Visit Madi [facility] 350.1.13.10 [facility] 4.2.7.2.686 [facility] AT [id number] Nd herminia [facility]ORY 198 [facility] 2021-02-01 2021-02-01 [facility] [id number] Univers 10:40:00 10:40:00 MADI itkamini [facility] 2021-01-28 2021-01-28 Office [facility] 1.2.840.114 [id number] Univers 09:43:18 09:58:18 Visit [facility] 350.1.13.10 it y of Surgical 4.2.7.2.686 [place] as Specialti [phone] Nd herminia es [address] [facility] 2021-01-28 2021-01-28 [facility] [id number] Univers 09:45:00 09:45:00 [facility] 2021-01-28 2021-01-28 Letter [facility] 1.2.840.114 [id number] Univers 00:00:00 00:00:00 (Out) [facility] 350.1.13.10 it y of Surgical 4.2.7.2.686 [place] Specialti [phone] Nd dicoleg es [address] [facility] 2021-01-13 2021-01-13 [facility]patient [facility] [id number] Univers 10:36:15 23:59:00 PROMISE [facility] 2021-01-13 2021-01-13 [facility] 1.2.840.114 [id number] Univers 10:36:15 23:59:00 Encounter Promise Peralta 350.1.13.10 itkamini [facility] 4.2.7.2.686 [facility] [id number] [facility] 804 [place] 2021-01-13 2021-01-13 Outpatient [facility] [id number] Univers 00:00:00 00:00:00 [facility] 2021-01-13 2021-01-13 Orders Doctor ALEX 1.2.840.114 [id number] Univers 00:00:00 00:00:00 Only Unassigned, ANDRE 350.1.13.10 ity of [place] [facility] 4.2.7.2.686 Dong as [phone] [address] 2021-01-03 2021-01-03 [facility] [id number] Univers 00:00:00 00:00:00 [facility] 2020-12-24 2020-12-24 Outpatient [facility] [id number] Univers 08:44:09 23:59:00 [facility] 2020-12-24 2020-12-24 [facility] [id number] Univers 08:44:09 23:59:00 [facility] 2020-12-24 2020-12-24 [facility] 1.2.840.114 [id number] Univers 08:44:09 23:59:00 Encounter Promise [facility] 350.1.13.10 ity of Surgical 4.2.7.2.686 [place] as Specialti [phone] Nd dical es 809 [facility] 2020-12-24 2020-12-24 Office [facility] [id number] Univers 08:30:48 09:19:56 Visit [facility] [id number] it y of Surgical [id number] Dong as Specialti [phone] Me dical es 198 [facility] 2020-12-24 2020-12-24 [facility] [id number] Univers 00:00:00 00:00:00 (Out) [facility] [id number] it y of Surgical [id number] Dong as Specialti [phone] Nd dical es 198 [facility] 2020-12-14 2020-12-14 Office [facility] [id number] Univers 09:10:37 09:51:05 Visit Alonso [id number] it y of Pediatric 4.2.7.2.686 [facility] [id number] [address] 2020-12-14 2020-12-14 Outpatient R [facility] [id number] Univers 09:40:00 09:40:00 ity of [facility] 2020-11-17 2020-11-17 Telephone [facility] [id number] Univers 00:00:00 00:00:00 Alonso [id number] it y of Pediatric 4.2.7.2.686 [facility] [phone] [address] 2020-11-16 2020-11-16 Billing [facility] [id number] Univers 17:00:00 17:15:00 Encounter Alonso [id number] ity of Pediatric 4.2.7.2.686 [facility] [id number] [address] 2020-11-16 2020-11-16 Office [facility] [id number] Univers 15:35:35 16:31:31 Visit Alonso [id number] it y of Pediatric 4.2.7.2.686 [facility] [id number] [address] 2020-11-16 2020-11-16 Outpatient R [facility] [id number] Univers 15:40:00 15:40:00 ity of [facility] 2020-11-16 2020-11-16 Orders Doctor ALEX [id number] Univers 00:00:00 00:00:00 Only Unassigned, ANDRE [id number] ity of [facility] 4.2.7.2.686 Dong as [phone] [place] [address] [address] 2019-05-23 2019-05-23 Telephone [facility] [id number] Univers 00:00:00 00:00:00 Elisa Weems [id number] ity of Pediatric 4.2.7.2.686 [facility] [phone] [address] 2019-05-12 2019-05-12 Office [facility] [id number] Univers 10:07:34 11:01:28 Visit Elisa Weems [id number] ity of Pediatric 4.2.7.2.[address] [facility] [facility] [id number] [address] 2019-05-12 2019-05-12 Letter [facility] [id number] [facility] 00:00:00 00:00:00 (Out) Elisa Weems [id number] ity of Pediatric 4.2.7.2.[address] [facility] [phone] [address] Results This patient has no known results.
[2023-04-23] MEDS ORDERED: FAMOTIDINE 20 MG/2 ML VIAL IV ONE (22:53)
[2023-04-23] MEDS ORDERED: ONDANSETRON 4 MG/2 ML VIAL ONE (22:53)
[2023-04-23] MEDS ORDERED: NA CHLORIDE 0.9% 1,000 ML ONE (22:59)
[2023-04-23 23:09] LABS: Absolute Lymphocytes (CBC) 1.5 K/uL (0.7-4.9); Hematocrit 40.4 % (39.6-49.0); Lymphocytes % 14.6 % (15.3-44.8); MCV 89.7 fL (80-100); MPV 8.1 fL (7.6-11.3); Platelets 225 thou/uL (152-406); RBC Red Blood Cell Count 4.51 M/uL (4.33-5.43)
[2023-04-23 23:10] LABS: Renal Epithelial <5 /HPF (None Seen); Specific Gravity 1.029 (1.005-1.030); Urine Bacteria <20 /HPF (<20); Urine Bilirubin NEGATIVE (Negative); Urine Blood Negative (Negative); Urine Clarity Extremely Turbid (Clear); Urine Color Yellow (Yellow); Urine Glucose TRACE (Negative); Urine Mucus 4+ /HPF (None Seen); Urine Protein 1+ (Negative); Urine RBC None Seen /HPF (None Seen); Urine Urobilinogen Normal (Normal); Urine pH 5.5 (5.0-7.0)
[2023-04-23 23:21] LABS: Barbiturates NEGATIVE (NEGATIVE); Benzodiazepines NEGATIVE (NEGATIVE); Cocaine NEGATIVE (NEGATIVE); METHAMPHETAM NEGATIVE (NEGATIVE); Methadone NEGATIVE (NEGATIVE); Opiates NEGATIVE (NEGATIVE); Phencyclidine NEGATIVE (NEGATIVE); THC Cannibis POSITIVE (NEGATIVE)
[2023-04-23 23:21] LABS: Albumin 3.8 g/dL (3.4-5.0); Bilirubin Total 0.5 mg/dL (0.2-1.0); Potassium 3.6 mEq/L (3.5-5.1); Protein, Total 7.6 g/dL (6.4-8.2)
[2023-04-24 00:25] LABS: Blood Morphology Comment NOT SEEN (NOT SEEN); Platelet Estimate ADEQ
--- NOTE | 2023-04-24 02:19 | ER ---
Nurse's Notes [facility] Name: Jens Renteria Jr Age: 17 yrs Sex: Male : 2005 Arrival Date: 04/23/2023 Time: 22:03 Bed 5 Private MD: Diagnosis: Nausea with vomiting, unspecified;Abdominal pain, unspecified Presentation: 04/23 22:19 Chief complaint: Patient states: epigastric abdominal pain, vomiting, headache and sore cm10 throat onset Sunday. Pt denies fevers or sick contacts. Coronavirus screen: Vaccine status: Patient reports being unvaccinated. Ebola Screen: Patient denies travel to an Ebola-affected area in the 21 days before illness onset. No symptoms or risks identified at this time. Initial Sepsis Screen: Does the patient meet any 2 criteria? No. Patient's initial sepsis screen is negative. Does the patient have a suspected source of infection? No. Patient's initial sepsis screen is negative. Risk Assessment: Do you want to hurt yourself or someone else? Patient reports no desire to harm self or others. Onset of symptoms was April 20, 2023. 22:19 Method Of Arrival: Ambulatory cm10 22:19 Acuity: MARY 3 cm10 Historical: - Allergies: 22:22 Keflex; cm10 - Home Meds: 22:22 None [Active]; cm10 - PMHx: 22:22 None; cm10 - PSHx: 22:22 None; cm10 - Immunization history:: Adult Immunizations unknown. - Social history:: Smoking status: Patient reports the use of cigarette tobacco products, smokes one pack cigarettes per day. Patient uses street drugs, marijuana. Screenin:24 [facility] ED Fall Risk Assessment (Adult) History of falling in the last 3 months, rv including since admission No falls in past 3 months (0 pts) Confusion or Disorientation No (0 pts) Intoxicated or Sedated No (0 pts) Impaired Gait No (0 pts) Mobility Assist Device Used No (0 pt) Altered Elimination No (0 pt) Score/Fall Risk Level 0 - 2 = Low Risk Oriented to surroundings, Maintained a safe environment, Educated pt \T\ family on fall prevention, incl call for assistance when getting out of bed, Assessed \T\ reinforced patient's understanding of fall precautions, Provided non-skid footwear, Hourly rounding (assess needs \T\ fall precautionary measures) done, Used ambulatory aids as needed (educated on \T\ assisted with), Used gait belt as appropriate. Abuse screen: Denies threats or abuse. Denies injuries from another. Nutritional screening: No deficits noted. Tuberculosis screening: No symptoms or risk factors identified. Assessment: 22:24 General: Appears comfortable, Behavior is calm, cooperative. Pain: Denies pain. Neuro: rv Level of Consciousness is awake, alert, obeys commands, Oriented to person, place, time, situation. Cardiovascular: Capillary refill < 3 seconds. Respiratory: Airway is patent Respiratory effort is even, unlabored. GI: Abdomen is flat, non-distended, Reports nausea, vomiting. Derm: Skin is intact. 23:30 Reassessment: No changes from previously documented assessment. Patient and/or family vc1 updated on plan of care and expected duration. Pain level reassessed. Patient is alert, oriented x 3, equal unlabored respirations, skin warm/dry/pink. 04/24 00:00 Reassessment: No changes from previously documented assessment. Patient and/or family vc1 updated on plan of care and expected duration. Pain level reassessed. Patient is alert, oriented x 3, equal unlabored respirations, skin warm/dry/pink. 01:00 Reassessment: No changes from previously documented assessment. Patient and/or family vc1 updated on plan of care and expected duration. Pain level reassessed. Patient is alert, oriented x 3, equal unlabored respirations, skin warm/dry/pink. Vital Signs: 04/23 22:19 BP 108 / 67; Pulse 95; Resp 18 S; Temp 98.5(O); Pulse Ox 98% on R/A; Weight 42.64 kg; cm10 Height 5 ft. 4 in. ; 23:00 BP 107 / 63; Pulse 73; Resp 18; Pulse Ox 99% ; vc1 04/24 00:00 BP 111 / 68; Pulse 65; Resp 17; Pulse Ox 99% ; vc1 01:00 BP 115 / 84; Pulse 60; Resp 17; Pulse Ox 100% ; vc1 02:31 BP 112 / 83; Pulse 61; Resp 16; Temp 98; Pulse Ox 100% on R/A; rv 04/23 22:19 Body Mass Index 16.13 (42.64 kg, 162.56 cm) cm10 Alma Coma Score: 02:32 Eye Response: spontaneous(4). Motor Response: obeys commands(6). Verbal Response: rv oriented(5). Total: 15. ED Course: 04/23 22:05 Patient arrived in ED. kj1 22:09 Isaak Duggan PA is PHCP. cp 22:09 Jeremiah Harp MD is Attending Physician. cp 22:18 Yuniel Rosenberg RN is Primary Nurse. rv 22:21 Triage completed. cm10 22:22 Arm band placed on Patient placed in an exam room, on a stretcher, on pulse oximetry. cm10 22:24 Inserted saline lock: 20 gauge in right forearm, using aseptic technique. Blood rv collected. 22:25 Patient has correct armband on for positive identification. Provided Education on: rv SMOKING. 22:25 No provider procedures requiring assistance completed. rv 04/24 00:36 US Abdomen Limited: gallbladder In Process Unspecified. EDMS 00:48 XRAY Chest (1 view) In Process Unspecified. EDMS 01:38 CT Abd/Pelvis - IV Contrast Only In Process Unspecified. EDMS 02:31 IV discontinued, intact, bleeding controlled, No redness/swelling at site. Pressure rv dressing applied. Administered Medications: 04/23 22:46 Drug: Famotidine IVP 20 mg Route: IVP; Site: right forearm; rv 04/24 02:30 Follow up: Response: No adverse reaction rv 04/23 22:46 Drug: Ondansetron IVP 4 mg Route: IVP; Site: right forearm; rv 04/24 02:30 Follow up: Response: No adverse reaction rv 04/23 22:53 Drug: NS 0.9% IV 1000 ml Route: IV; Rate: 500 ml/hr; Site: right forearm; jb4 08 02:30 Follow up: IV Status: Completed infusion; IV Intake: 1000ml rv 02:30 Drug: Dicyclomine IM 20 mg Route: IM; Site: right deltoid; rv 02:30 Follow up: Response: Medication administered at discharge. rv Medication: 04/23 22:25 VIS not applicable for this client. rv Intake: 04/24 02:30 IV: 1000ml; Total: 1000ml. rv Outcome: 02:19 Discharge ordered by . cp 02:31 Discharged to home ambulatory. rv 02:31 Condition: good 02:31 Discharge instructions given to patient, Instructed on discharge instructions, follow up and referral plans. medication usage, Demonstrated understanding of instructions, follow-up care, medications, Prescriptions given X 2. 02:32 Patient left the ED. rv Signatures: Dispatcher [employer] EDMS Isaak Duggan PA PA cp Bryson, James RN RN jb4 Yuniel Rosenberg RN RN rv Mari Gupta1 Adry Henry RN RN vc1 Gabby Steel RN RN cm10
--- NOTE | 2023-04-24 02:19 | EDPHYS ---
Physician Documentation [facility] Name: Jens Renteria Jr Age: 17 yrs Sex: Male : 2005 Arrival Date: 04/23/2023 Time: 22:03 Bed 5 Private MD: ED Physician Jeremiah Harp HPI: 04/23 22:50 This 17 yrs old Male presents to ER via Ambulatory with complaints of cp Nausea/Vomiting. 22:50 The patient presents to the emergency department with nausea, that is moderate, cp vomiting, that is intermittent, abdominal pain, of the mid abdomen. 22:50 Onset: The symptoms/episode began/occurred last week. cp 22:50 Possible causes: flare up of bowel problem, history of similar episodes in the past. cp Associated signs and symptoms: Pertinent positives: anorexia, sore throat, Pertinent negatives: constipation, diarrhea, dysuria, fever, GI bleeding. Severity of symptoms: in the emergency department the symptoms are unchanged despite home interventions. The patient has experienced similar episodes in the past, multiple times. Historical: - Allergies: 22:22 Keflex; cm10 - Home Meds: 22:22 None [Active]; cm10 - PMHx: 22:22 None; cm10 - PSHx: 22:22 None; cm10 - Immunization history:: Adult Immunizations unknown. - Social history:: Smoking status: Patient reports the use of cigarette tobacco products, smokes one pack cigarettes per day. Patient uses street drugs, marijuana. ROS: 22:55 Constitutional: Positive for poor PO intake, Negative for body aches, chills, fever. cp 22:55 Eyes: Negative for injury, pain, redness, and discharge. cp 22:55 ENT: Positive for sore throat, Negative for drainage from ear(s), ear pain, difficulty swallowing, difficulty handling secretions. 22:55 Cardiovascular: Negative for chest pain, edema, palpitations. 22:55 Respiratory: Negative for cough, shortness of breath, wheezing. 22:55 Abdomen/GI: Positive for abdominal pain, nausea and vomiting, anorexia, Negative for diarrhea, constipation, hematemesis, black/tarry stool, rectal bleeding. 22:55 Back: Negative for pain at rest, pain with movement. 22:55 : Negative for urinary symptoms. 22:55 Skin: Negative for cellulitis, rash. 22:55 Neuro: Negative for altered mental status, headache, numbness, syncope. 22:55 All other systems are negative. Exam: 23:00 Constitutional: The patient appears in no acute distress, alert, awake, non-toxic, well cp developed, thin 23:00 Head/Face: Normocephalic, atraumatic. cp 23:00 Eyes: Periorbital structures: appear normal, Pupils: equal, round, and reactive to cp light and accomodation, Extraocular movements: intact throughout, Conjunctiva: normal, no exudate, no injection, Sclera: no appreciated abnormality, Lids and lashes: appear normal, bilaterally. 23:00 ENT: External ear(s): are unremarkable, Nose: is normal, Mouth: Lips: moist, Oral mucosa: pink and intact, moist, Posterior pharynx: is normal, airway is patent, no erythema, no exudate. 23:00 Neck: ROM/movement: is normal, is supple, without pain, no range of motions limitations. 23:00 Chest/axilla: Inspection: normal. 23:00 Cardiovascular: Rate: normal, Rhythm: regular. 23:00 Respiratory: the patient does not display signs of respiratory distress, Respirations: normal, no use of accessory muscles, no retractions, labored breathing, is not present, Breath sounds: are clear throughout, no decreased breath sounds, no stridor, no wheezing. 23:00 Abdomen/GI: Inspection: abdomen appears normal, Bowel sounds: active, all quadrants, Palpation: soft, in all quadrants, mild abdominal tenderness, in the mid abdomen, rebound tenderness, is not appreciated, involuntary guarding, is not appreciated. 23:00 Back: pain, is absent, ROM is normal. 23:00 Neuro: Orientation: to person, place \T\ time. Mentation: is normal, Motor: moves all fours, strength is normal, Sensation: is normal. Vital Signs: 22:19 BP 108 / 67; Pulse 95; Resp 18 S; Temp 98.5(O); Pulse Ox 98% on R/A; Weight 42.64 kg; cm10 Height 5 ft. 4 in. ; 23:00 BP 107 / 63; Pulse 73; Resp 18; Pulse Ox 99% ; vc1 04/24 00:00 BP 111 / 68; Pulse 65; Resp 17; Pulse Ox 99% ; vc1 01:00 BP 115 / 84; Pulse 60; Resp 17; Pulse Ox 100% ; vc1 02:31 BP 112 / 83; Pulse 61; Resp 16; Temp 98; Pulse Ox 100% on R/A; rv 04/23 22:19 Body Mass Index 16.13 (42.64 kg, 162.56 cm) cm10 Tasha Coma Score: 02:32 Eye Response: spontaneous(4). Motor Response: obeys commands(6). Verbal Response: rv oriented(5). Total: 15. MDM: 04/23 22:15 Patient medically screened. cp 23:00 Differential diagnosis: gastritis, cholecystitis, pancreatitis, appendicitis, viral cp gastroenteritis, gastroenteritis. 04/24 02:18 Data reviewed: vital signs, nurses notes, lab test result(s), radiologic studies, CT cp scan, ultrasound. 02:18 Consideration of Admission/Observation Escalation of care including cp admission/observation considered. I considered the following discharge prescriptions or medication management in the emergency department Medications were administered in the Emergency Department. See MAR. Counseling: I had a detailed discussion with the patient and/or guardian regarding: the historical points, exam findings, and any diagnostic results supporting the discharge/admit diagnosis, lab results, radiology results, to return to the emergency department if symptoms worsen or persist or if there are any questions or concerns that arise at home. Response to treatment: the patient's symptoms have markedly improved after treatment, and as a result, I will discharge patient. Special discussion: Based on the patient's Hx, exam, and Dx evaluation, there is no indication for emergent surgery or inpatient Tx. It is understood by the patient/guardian that if the Sx's persist or worsen they need to return immediately for re-evaluation. 04/23 22:40 Order name: CBC with Diff; Complete Time: 00:44 cp 04/23 23:56 Interpretation: Normal except: LYM% 14.6; MN% 17.4; MNA 1.7. cp 04/23 22:40 Order name: CMP; Complete Time: 23:56 cp 04/23 22:40 Order name: Lipase; Complete Time: 23:56 cp 04/23 22:40 Order name: Urinalysis w/ reflexes; Complete Time: 23:14 cp 04/23 23:14 Interpretation: Normal except: UCLA Extremely Turbid; UGLUC TRACE; UKET 1+; UPROT 1+; cp MUCUS 4+. 04/23 22:40 Order name: UDS; Complete Time: 23:56 cp 04/23 23:17 Order name: Manual Differential; Complete Time: 00:44 EDMS 04/24 00:45 Interpretation: Normal except: BANDS [F] 22; LYM 13. cp 04/23 23:57 Order name: XRAY Chest (1 view) cp 04/23 23:57 Order name: US Abdomen Limited: gallbladder cp 04/24 00:47 Order name: CT Abd/Pelvis - IV Contrast Only cp 04/23 22:40 Order name: IV Saline Lock; Complete Time: 22:41 cp 04/23 22:40 Order name: Labs collected and sent; Complete Time: 22:41 cp Administered Medications: 04/23 22:46 Drug: Famotidine IVP 20 mg Route: IVP; Site: right forearm; rv 04/24 02:30 Follow up: Response: No adverse reaction 04/23 22:46 Drug: Ondansetron IVP 4 mg Route: IVP; Site: right forearm; rv 04/24 02:30 Follow up: Response: No adverse reaction 04/23 22:53 Drug: NS 0.9% IV 1000 ml Route: IV; Rate: 500 ml/hr; Site: right forearm; jb4 04/24 02:30 Follow up: IV Status: Completed infusion; IV Intake: 1000ml rv 02:30 Drug: Dicyclomine IM 20 mg Route: IM; Site: right deltoid; rv 02:30 Follow up: Response: Medication administered at discharge. rv Disposition Summary: 04/24/23 02:19 Discharge Ordered Location: Home cp Problem: new cp Symptoms: have improved cp Condition: Stable cp Diagnosis - Nausea with vomiting, unspecified cp - Abdominal pain, unspecified cp Followup: cp - With: Private Physician - When: 2 - 3 days - Reason: Recheck today's complaints Discharge Instructions: - Discharge Summary Sheet cp - Abdominal Pain, Adult cp - Nausea and Vomiting, Adult cp Forms: - Medication Reconciliation Form cp - Thank You Letter cp - Antibiotic Education cp - Prescription Opioid Use cp - Patient Portal Instructions cp - Work release form pf1 Prescriptions: - Protonix 40 mg Oral Tablet - take 1 tablet by ORAL route once daily; 30 tablet; Refills: 0, Product cp Selection Permitted - Zofran 4 mg Oral Tablet - take 1 tablet by ORAL route every 12 hours As needed; 20 tablet; Refills: 0, cp Product Selection Permitted Addendum: 04/25/2023 04:07 Co-signature as Attending Physician, Jeremiah Harp MD I agree with the assessment s p4 and plan of care. I reviewed the patient's care provided by the Advanced Practice Provider and agree with the diagnosis and treatment plan. Signatures: Dispatcher [employer] EDMS Isaak Duggan PA PA cp Bryson, James RN RN jb4 Yuniel Rosenberg RN RN rv Potepalov, Sergey, MD MD sp4 Gabby Steel RN RN cm10 Corrections: (The following items were deleted from the chart) 02:10 04/23 23:00 Constitutional: The patient appears in no acute distress, alert, awake, cp non-toxic, well developed, well nourished, cp
[2023-04-24] MEDS ORDERED: DICYCLOMINE HCL 20 MG/2 ML AMP IM ONE (02:35)
[2023-04-24 02:45] VITALS: O2SAT 100
[2023-04-24 02:46] VITALS: BP 112/83; TEMP 98
--- NOTE | 2023-04-24 18:43 | RAD REPORT ---
EXAM DESCRIPTION: CT Abdomen and Pelvis With Intravenous Contrast CLINICAL HISTORY: The patient is 17 years old and is Male; ABD PAIN TECHNIQUE: Axial computed tomography images of the abdomen and pelvis with intravenous contrast. S agittal and coronal reformatted images were created and reviewed. This CT exam was performed using one or more of the following dose reduction techniques: automated exposure control, adjustment of t he mA and/or kV according to patient size, and/or use of iterative reconstruction technique. COMPARISON: No relevant prior studies available. FINDINGS: LUNG BASES: Unremarkable. No mass. No consolidation. ABDOMEN: LIVER: Unremarkable. No mass. GALLBLADDER AND BILE DUCTS: No calcified stones. No ductal dilation. PANCREAS: No ductal dilation. No mass. SPLEEN: Unremarkable. ADRENALS: Unremarkable. No mass. KIDNEYS AND URETERS: Unremarkable. The kidneys enhance symmetrically. No obstructing renal or ure teral calculus is seen. No hydronephrosis or hydroureter. No perinephric fluid or stranding. STOMACH AND BOWEL: The stomach is minimally fluid filled. The small bowel is relatively decompres sed proximally. Distally, the small bowel is fluid-filled. A moderate amount stool and air noted thro ughout the colon. There is no evidence of obstruction. PELVIS: APPENDIX: No findings to suggest acute appendicitis. BLADDER: The bladder is moderately distended. REPRODUCTIVE: Unremarkable as visualized. ABDOMEN and PELVIS: INTRAPERITONEAL SPACE: Unremarkable. No free air. No significant fluid collection. BONES/JOINTS: No acute fracture. SOFT TISSUES: The soft tissues are normal. VASCULATURE: Unremarkable. No abdominal aortic aneurysm. LYMPH NODES: Unremarkable. No enlarged lymph nodes. IMPRESSION: No acute findings on this contrasted CT of the abdomen and pelvis to explain the patient 's symptoms. Electronically signed by: Shereen Wei MD 04/24/2023 2:06 AM CDT Due to temporary technical issues with the PACS/Fluency reporting system, reports are being signed by the in house radiologists without review as a courtesy to insure prompt reporting. The interpreting radiologist is fully responsible for the content of the report.
--- NOTE | 2023-04-24 18:44 | RAD REPORT ---
EXAM DESCRIPTION: Chest Single View [facility]: XR CHEST 1 VIEW CLINICAL HISTORY: 17 years Male, vomiting COMPARISON: None. FINDINGS: Single portable AP view of the chest. Trachea is midline. Normal size of the cardiac silho uette. No pulmonary vascular congestion. No focal consolidation, pleural effusion, or pneumothorax. N o acute osseous abnormality. IMPRESSION: No acute radiographic abnormality. Electronically signed by: Lenore Clemons MD 04/24/2023 1:11 AM CDT Due to temporary technical issues with the PACS/Fluency reporting system, reports are being signed by the in house radiologists without review as a courtesy to insure prompt reporting. The interpreting radiologist is fully responsible for the content of the report.
--- NOTE | 2023-04-24 18:45 | RAD REPORT ---
EXAM DESCRIPTION: US Abdomen Limited, Gallbladder CLINICAL HISTORY: ABD PAIN TECHNIQUE: Real-time ultrasound of the right upper quadrant with image documentation. COMPARISON: No relevant prior studies available. FINDINGS: Gallbladder: Contracted gallbladder. No gallstones, gallbladder wall thickening or per icholecystic fluid. lead medical technologist noted a sonographic negative Ramírez's sign. Common bile duct: Unremarkable as visualized. No stones. No dilation. IMPRESSION: No sonographic evidence of cholelithiasis or acute cholecystitis. Electronically signed by: Shayy Dawkins MD 04/24/2023 1:06 AM CDT Due to temporary technical issues with the PACS/Fluency reporting system, reports are being signed by the in house radiologists without review as a courtesy to insure prompt reporting. The interpreting radiologist is fully responsible for the content of the report.
== END 2023-04-24 02:32 | disposition home or self-care (01) ==
LOC: ER 22:03
DX: R11.2 Nausea with vomiting, unspecified (principal); R10.13 Epigastric pain; R51.9 Headache, unspecified; J02.9 Acute pharyngitis, unspecified; Z88.8 Allergy status to other drugs, medicaments and biological substances; Z72.0 Tobacco use
CPT/HCPCS: 36415; 71045; 74177; 76705; 80053; 80307; 81001; 83690; 85025; J0500; J2405; J7030; Q9967

== ENCOUNTER 2023-06-08 02:39 | Emergency (ER) | payer SELFPAY ==
--- OUTSIDE RECORDS SUMMARY | 2023-06-08 02:43 | XMS REPORT | Continuity of Care Document ---
:2005 Author Organization [facility] [place] t Address [address] [place] [address] [address] [place] [address] Care Team Providers Name Role Phone LIEN CEE Primary Care Physician Unavailable LLUVIA SAMAYOA Attending Clinician Unavailable Lluvia Samayoa MD Attending Clinician Doctor Unassigned, [place] Attending Clinician Unavailable YARED MENDOSA Attending Clinician [...] Attending Clinician Madi Ivey MD Attending Clinician [phone] MADI IVEY Attending Clinician Unavailable Augustine Garza Attending Clinician AUGUSTINE KAYE Attending Clinician Unavailable Elisa Mejia MD Attending Clinician PROMISE SALEEM Admitting Clinician Unavailable Payers Payer Name Policy Type Policy Number Effective Date Expiration Date Penelope sparks [facility] [id number] 2017 00:00:00 [place] [id number] 2023 00:00:00 Problems Condition Condition Condition Status [...] Branch Decreased Decreased 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 strength 00:00: [place] [...] INGREDI 4-24 ity of 00:00: [place] [facility] [place] Social History Social Habit Start Date Stop Date Quantity Comments Source Exposure to Not sure [facility] SARS-CoV-2 [facility] (event) [place] Tobacco use and 2018-01-08 2018-01-08 Smokeless tobacco Un iversity of exposure 00:00:00 00:00:00 non-user [facility] Sex Assigned At [birth year] Universit y of 00:00:00 00:00:00 [facility] Smoking Status Start Date Stop Date Source Never smoked tobacco [facility] Medications Ordered Filled Start Stop Current Ordering Indication Dosage Frequency Signature Comments Components Source Medication Medication Date Date Medication? Clinician (SIG) Name Name ondansetron 2021-0 Yes [id number] 4mg Take 1 Univers 4 mg 3-08 tablet by ity of disintegrat 00:00: mouth [place] ing tablet 00 every 8 Medica l (eight) Branch hours as needed for Nausea and Vomiting (N/V). ondansetron 0 Yes [id number] 4mg Take 1 Univers 4 mg 3-08 tablet by ity of disintegrat 00:00: mouth [place] ing tablet 00 every 8 Medica l (eight) Branch hours as needed for Nausea and Vomiting (N/V). ondansetron 0 Yes [id number] 4mg Take 1 Univers 4 mg 3-08 tablet by ity of disintegrat 00:00: mouth [place] ing tablet 00 every 8 Medica l (eight) Branch hours as needed for Nausea and Vomiting (N/V). ondansetron 0 Yes [id number] 4mg Take 1 Univers 4 mg 3-08 tablet by ity of disintegrat 00:00: mouth [place] ing tablet 00 every 8 Medica l (eight) Branch hours as needed for Nausea and Vomiting (N/V). FLUoxetine 0 Yes [id number] 20mg Take 1 U nivers 20 mg 8-05 capsule by ity of capsule 00:00: mouth [place] 00 daily. Medical Branch FLUoxetine 0 Yes [id number] 10mg Take 1 U nivers 10 mg 8-05 capsule by ity of capsule 00:00: mouth [place] 00 daily. Medical Branch hydrOXYzine 2020-0 Yes [id number] 25mg Take 1 Univers 25 mg 8-05 tablet by ity of tablet 00:00: mouth [place] 00 every 8 Medical (eight) Branch hours as needed for Anxiety. FLUoxetine 2020-0 Yes [id number] 20mg Take 1 U nivers 20 mg 8-05 capsule by ity of capsule 00:00: mouth [place] 00 daily. Medical Branch FLUoxetine 2020-0 Yes [id number] 10mg Take 1 U nivers 10 mg 8-05 capsule by ity of capsule 00:00: mouth [place] 00 daily. Medical Branch hydrOXYzine 2020-0 Yes [id number] 25mg Take 1 Univers 25 mg 8-05 tablet by ity of tablet 00:00: mouth [place] 00 every 8 Medical (eight) Branch hours as needed for Anxiety. FLUoxetine 2020-0 Yes [id number] 20mg Take 1 U nivers 20 mg 8-05 capsule by ity of capsule 00:00: mouth [place] 00 daily. Medical Branch FLUoxetine 0 Yes [id number] 10mg Take 1 U nivers 10 mg 8-05 capsule by ity of capsule 00:00: mouth [place] 00 daily. Medical Branch hydrOXYzine 0 Yes [id number] 25mg Take 1 Univers 25 mg 8-05 tablet by ity of tablet 00:00: mouth [place] 00 every 8 Medical (eight) Branch hours as needed for Anxiety. FLUoxetine 0 Yes [id number] 20mg Take 1 U nivers 20 mg 8-05 capsule by ity of capsule 00:00: mouth [place] 00 daily. Medical Branch FLUoxetine 0 Yes [id number] 10mg Take 1 U nivers 10 mg 8-05 capsule by ity of capsule 00:00: mouth [place] 00 daily. Medical Branch hydrOXYzine Yes [id number] 25mg Take 1 Univers 25 mg 8-05 tablet by ity of tablet 00:00: mouth [place] 00 every 8 Medical (eight) Branch hours as needed for Anxiety. FLUoxetine Yes [id number] 20mg Take 1 U nivers 20 mg 6-22 capsule by ity of capsule 00:00: mouth [place] 00 daily. Medical Branch FLUoxetine 0 Yes [id number] 20mg Take 1 U nivers 20 mg 6-22 capsule by ity of capsule 00:00: mouth [place] 00 daily. Medical Branch FLUoxetine 0 Yes [id number] 20mg Take 1 U nivers 20 mg 6-22 capsule by ity of capsule 00:00: mouth [place] 00 daily. Medical Branch FLUoxetine 0 Yes [id number] 20mg Take 1 U nivers 20 mg 6-22 capsule by ity of capsule 00:00: mouth [place] 00 daily. Medical Branch omeprazole 2020-0 Yes [id number] 20mg Take 1 Univers 20 mg 3-05 capsule by ity of capsule 00:00: mouth [place] 00 daily. Medical Branch omeprazole 2020-0 Yes [id number] 20mg Take 1 Univers 20 mg 3-05 capsule by ity of capsule 00:00: mouth [place] 00 daily. Medical Branch omeprazole 2020-0 Yes [id number] 20mg Take 1 Univers 20 mg 3-05 capsule by ity of capsule 00:00: mouth [place] 00 daily. Medical Branch omeprazole Yes [id number] 20mg Take 1 Univers 20 mg 3-05 capsule by ity of capsule 00:00: mouth [place] 00 daily. [facility] Vital Signs Vital Name Observation Time Observation Value Comments Source Systolic blood 2021-12-27 19:33:00 118 mm[Hg] Univer sity of pressure [facility] Diastolic blood 2021-12-27 19:33:00 77 mm[Hg] Unive rsity of [facility] Heart rate 2021-12-27 19:33:00 93 /min Universi ty [facility] Respiratory rate 2021-12-27 19:33:00 16 /min Univ ersity of [facility] Body weight 2021-12-27 19:33:00 39.179 kg [facility] Procedures Procedure Date / Time Performing Clinician Source Performed INSURANCE CORRESPONDENCE 2023-02-10 05:01:00 Doctor Anibal, [facility] [place] [facility] Encounters Start End Encounter Admission Attending Care Care Encounter Source Date/Time Date/Time Type Type Clinicians Facility Department ID 2021-07-18 Emergency [facility] [id number] Univers 08:31:39 kamini [facility] 2023-04-03 2023-04-03 [id number] Univers 14:00:00 14:00:00 LLUVIA kamini [facility] 2023-03-23 2023-03-23 [facility] [id number] [facility] 14:00:00 14:00:00 LLUVIA [facility] 2023-03-23 2023-03-23 [facility] 1.2.840.114 [id number] Univers 00:00:00 00:00:00 (Out) Lluvia PERALTA [id number] i ty of [place] 4.2.7.2.686 Samy GAMBLE [phone] Pr dical NAL [address] [place] [address] 2023-02-10 2023-02-10 Orders Doctor JOHNSON 1.2.840.114 [id number] Univers 00:00:00 00:00:00 Only Unassigned, ANDRE 350.1.13.10 ity [place] [facility] 4.2.7.2.686 Dong as [phone] [facility] 009 Branch 2022-01-10 2022-01-10 Outpatient R NAVYA [facility] [id number] Univers 13:00:00 13:00:00 YARED bairdkamini [facility] 2021-12-27 2021-12-27 Outpatient R LAIRD-BELLE [facility] [id number] Univers 14:30:00 15:03:18 , HORTENSIA cagle [facility] 2021-12-27 2021-12-27 [facility] 1.2.840.114 [id number] Univers 14:30:00 15:03:18 Visit , Hortensia GUPTA 350.1.13.10 [place] [facility] [id number] [address] 2021-12-27 2021-12-27 [facility] [id number] Univers 14:30:00 15:03:18 , HORTENSIA cagle [facility] 2021-12-14 2021-12-14 Outpatient R LIEN CEE [facility] [id number] Univers 08:40:00 08:53:05 ity [facility] 2021-12-14 2021-12-14 Mutuel Teller Nurse, Dewey Beverly [facility] [id number] [id number] Univers 08:40:00 08:53:05 Visit Lien Cee 350.1.13.10 [place] [facility] [id number] [address] 2021-12-13 2021-12-13 [id number] Univers 09:50:00 10:37:19 , HORTENSIA cagle [facility] 2021-12-13 2021-12-13 Outpatient R [facility] [id number] Univers 09:50:00 10:37:19 , HORTENSIA cagle [facility] 2021-12-13 2021-12-13 Outpatient R [facility] [id number] Univers 08:10:00 08:10:00 , HORTENSIA cagle [facility] 2021-12-13 2021-12-13 Orders Doctor ALEX 1.2.840.114 [id number] Univers 00:00:00 00:00:00 Only Unassigned, ANDRE 350.1.13.10 ity of [place] [facility] 4.2.7.2.686 [facility] [phone] [facility] 009 Branch 2021-11-22 2021-11-22 Emergency X [facility] ERT [id number] Univers 09:12:00 09:48:00 BRAYAN cagle [facility] 2021-11-22 2021-11-22 [facility] [id number] Univers 09:12:00 09:48:00 Brayan PERALTA 350.1.13.10 i [facility] 4.2.7.2.686 [facility] [phone] [facility] 084 Branch 2021-05-30 2021-05-30 Outpatient R ROLAND [facility] [id number] Univers 15:50:00 15:50:00 , HORTENSIA cagle [facility] 2021-04-21 2021-04-21 Office [facility] Vadim 1.2.840.114 [id number] Univers 11:06:47 11:56:04 Visit Thuy Gupta 350.1.13.10 [place] [facility] [id number] [address] 2021-04-21 2021-04-21 Outpatient Ryan WALLER [facility] [id number] Univers 10:40:00 10:40:00 THUY cagle [facility] 2021-04-21 2021-04-21 Letter Sridhar [facility] 1.2.840.114 [id number] Univers 00:00:00 00:00:00 (Out) Thuy Gupta 350.1.13.10 [place] [facility] [id number] [address] 2021-04-05 2021-04-05 [facility] [id number] Univers 11:20:00 11:20:00 THUY ity of [facility] 2021-03-31 2021-03-31 Emergency [facility] 1.2.840.114 [id number] Univers 16:02:00 21:18:00 Keira Peralta 350.1.13.10 it[place] [phone] [facility] [address] [place] 2021-03-17 2021-03-17 Telephone Lien Cee [facility] 1.2.840.114 [id number] Univers 00:00:00 00:00:00 Alonso 350.1.13.10 [place].2.[place] [facility] [id number] [facility] [address] [place] 2021-03-08 2021-03-08 Office Lien Cee [facility] 1.2.840.114 [id number] Univers 10:58:33 11:51:15 Visit Alonso 350.1.13.10 [place]2.[place] [facility] [id number] [address] 2021-03-08 2021-03-08 Outpatient R LIEN CEE [facility] [id number] Univers 11:20:00 11:20:00 ity of [facility] 2021-02-22 2021-02-22 Outpatient R HARPER [facility] [id number] Univers 10:45:00 11:45:47 PROMISE bairdy [facility] 2021-02-22 2021-02-22 Ancillary Deniz Hines [facility] 1.2. 840.114 [id number] Univers 10:40:09 11:45:47 Visit Promise Saleem 350.1.13.10 ity of [place] 4.2.7.2.686 [facility] Areaa s [facility] [id number] [address] 2021-02-01 2021-02-01 Office [facility] 1.2.063.351 [id number] Univers 10:23:45 11:20:58 Visit Madi SANTAMARIA 350.1.13.10 ity of [facility] 4.2.7.2.686 [facility] AT [phone] Pr dical VICTORY 198 [facility] 2021-02-01 2021-02-01 Outpatient R LONI [facility] [id number] Univers 10:40:00 10:40:00 MADI briekamini [facility] 2021-01-28 2021-01-28 Office [facility] 1.2.840.114 [id number] Univers 09:43:18 09:58:18 Visit [facility] 350.1.13.10 it y of Surgical 4.2.7.2.686 [place] Specialti [id number] Pr dical es 198 [facility] 2021-01-28 2021-01-28 [facility] [id number] Univers 09:45:00 09:45:00 AUGUSTINE cagle [facility] 2021-01-28 2021-01-28 Letter [facility] 1.2.840.114 [id number] Univers 00:00:00 00:00:00 (Out) [facility] 350.1.13.10 it y of Surgical 4.2.7.2.686 [place] Specialti [id number] Pr dicoleg es 198 [facility] 2021-01-13 2021-01-13 [facility] [id number] Univers 10:36:15 23:59:00 PROMISE cagle [facility] 2021-01-13 2021-01-13 [facility] 1.2.840.114 [id number] Univers 10:36:15 23:59:00 Encounter Promise Peralta 350.1.13.10 itkamini [facility] 4.2.7.2.686 [facility] [phone] [facility] [address] [place] 2021-01-13 2021-01-13 [facility] [id number] Univers 00:00:00 00:00:00 PROMISE cagle [facility] 2021-01-13 2021-01-13 Orders Doctor JOHNSON 1.2.840.114 [id number] Univers 00:00:00 00:00:00 Only Unassigned, ANDRE 350.1.13.10 ity of [place] [facility] 4.2.7.2.686 Dong as [id number] [facility] 009 Branch 2021-01-03 2021-01-03 [facility] [id number] Univers 00:00:00 00:00:00 PROMISE itkamini [facility] 2020-12-24 2020-12-24 Out[facility] [id number] Univers 08:44:09 23:59:00 [facility] 2020-12-24 2020-12-24 [facility] [id number] Univers 08:44:09 23:59:00 [facility] 2020-12-24 2020-12-24 [facility] 1.2.840.114 [id number] Univers 08:44:09 23:59:00 Encounter [facility] 350.1.13.10 ity of Surgical 4.2.7.2.686 [place] Specialti [id number] Pr dical es 809 [facility] 2020-12-24 2020-12-24 Office [facility] 1.2.520.116 [id number] Univers 08:30:48 09:19:56 Visit [facility] 350.1.13.10 it y of Surgical 4.2.7.2.686 [place] as Specialti [id number] Me dical es 198 [facility] 2020-12-24 2020-12-24 Letter [facility] 1.2.840.114 [id number] Univers 00:00:00 00:00:00 (Out) [facility] 350.1.13.10 it y of Surgical 4.2.7.2.686 [place] as Specialti [id number] Pr dical es 198 [facility] 2020-12-14 2020-12-14 Office Lien Cee [facility] 1.2.840.114 [id number] Univers 09:10:37 09:51:05 Visit Alonso 350.1.13.10 it y [place]2.7.2.686 [place] [facility] [id number] [facility] 225 Branch 2020-12-14 2020-12-14 Outpatient R LIEN CEE [facility] [id number] Univers 09:40:00 09:40:00 ity of [facility] 2020-11-17 2020-11-17 Telephone Lien Cee [facility] 1.2.840.114 [id number] Univers 00:00:00 00:00:00 Alonso 350.1.13.10 it y [place]2.7.2.686 [place] [facility] [id number] [address] 2020-11-16 2020-11-16 Billing Lien Cee [facility] 1.2.840.114 [id number] Univers 17:00:00 17:15:00 Encounter Alonso 350.1.13.10 ity of [place] 4[place]2.7.2.686 [place] [facility] [id number] [address] 2020-11-16 2020-11-16 Office Lien Cee [facility] 1.2.840.114 [id number] Univers 15:35:35 16:31:31 Visit Alonso 350.1.13.10 it y of [place] 4[place]2.7.2.686 [place] [facility] [id number] [address] 2020-11-16 2020-11-16 Outpatient R LIEN CEE [facility] [id number] Univers 15:40:00 15:40:00 ity of [facility] 2020-11-16 2020-11-16 Orders Doctor ALEX 1.2.840.114 [id number] Univers 00:00:00 00:00:00 Only Unassigned, ANDRE 350.1.13.10 ity of [place] [facility] 4.2.7.2.686 Dong as [id number] [place] [address] Branch 2019-05-23 2019-05-23 Telephone [facility] 1.2.840.11 [id number] Univers 00:00:00 00:00:00 Elisa Weems 350.1.13.10 ity of [place] 4[place]2.7.2.686 [place] [facility] [id number] [facility] [address] [place] 2019-05-12 2019-05-12 Office [facility] 1.2.840.114 [id number] [facility] 10:07:34 11:01:28 Visit Elisa Weems 350.1.13.10 ity of Pediatric 4.2.7.2.686 [facility] [id number] [place] [address] Branch 2019-05-12 2019-05-12 Letter [facility] 1.2.840.114 [id number] [facility] 00:00:00 00:00:00 (Out) Elisa Weems 350.1.13.10 ity of Pediatric 4.2.7.2.686 [facility] [id number] [place] [address] Branch Results This patient has no known results.
[2023-06-08] MEDS ORDERED: ONDANSETRON 4 MG/2 ML VIAL ONE (02:48)
[2023-06-08 02:58] LABS: Absolute Lymphocytes (CBC) 2.9 K/uL (0.7-4.9); Hematocrit 41.4 % (39.6-49.0); Lymphocytes % 37.1 % (15.3-44.8); MCV 90.6 fL (80-100); MPV 7.2 fL (7.6-11.3); Platelets 259 thou/uL (152-406); RBC Red Blood Cell Count 4.57 M/uL (4.33-5.43)
[2023-06-08 03:25] LABS: ALT/SGPT 20 U/L (16-61); AST/SGOT 18 U/L (15-37); Alkaline Phosphatase 110 U/L (45-117); BUN Blood Urea Nitrogen 11 mg/dL (7-18); Bicarbonate 25 mEq/L (21-32); Bilirubin Direct < 0.1 mg/dL (0-0.2); Bilirubin Indirect, Calculated ND mg/dL (0.2-0.8); Bilirubin Total 0.2 mg/dL (0.2-1.0); Glomerular Filtration Rate 131 ml/min (=/>90); Glucose Level 81 mg/dL (74-106); Potassium 3.9 mEq/L (3.5-5.1); Protein, Total 7.5 g/dL (6.4-8.2); Sodium Level 142 mEq/L (136-145)
[2023-06-08] MEDS ORDERED: NA CHLORIDE 0.9% 1,000 ML ONE (03:38)
[2023-06-08 04:57] LABS: Barbiturates NEGATIVE (NEGATIVE); Benzodiazepines NEGATIVE (NEGATIVE); Cocaine NEGATIVE (NEGATIVE); METHAMPHETAM NEGATIVE (NEGATIVE); Methadone NEGATIVE (NEGATIVE); Opiates NEGATIVE (NEGATIVE); Phencyclidine NEGATIVE (NEGATIVE); THC Cannibis POSITIVE (NEGATIVE)
--- NOTE | 2023-06-08 05:27 | ER ---
Nurse's Notes [facility] Name: Jens Renteria Jr Age: 17 yrs Sex: Male : 2005 Arrival Date: 06/08/2023 Time: 02:39 Bed 7 Private MD: Diagnosis: Altered mental status, unspecified;Poly Substance abuse Presentation: 06/08 02:41 Chief complaint: EMS states: family members report pt. has been drinking alcohol and ha1 using a Delta 8. responds only to painful stimuli. vomiting. we gave about 500 ml of NS. 02:41 Ebola Screen: No symptoms or risks identified at this time. Initial Sepsis Screen: Does ha1 the patient meet any 2 criteria? No. Patient's initial sepsis screen is negative. Does the patient have a suspected source of infection? No. Patient's initial sepsis screen is negative. Risk Assessment: Do you want to hurt yourself or someone else? Patient reports no desire to harm self or others. Onset of symptoms was June 08, 2023. 02:41 Method Of Arrival: EMS: [facility] ha1 02:41 Acuity: MARY 3 ha1 Triage Assessment: 02:41 General: Appears unkempt, Behavior is drowsy. Pain: Unable to use pain scale. FLACC ha1 scale score is 0 out of 10. Neuro: Level of Consciousness is lethargic, Oriented to. Cardiovascular: Patient's skin is warm and dry. Respiratory: Airway is patent Trachea midline Respiratory effort is even, unlabored, Respiratory pattern is regular, symmetrical. GI: Abdomen is flat, non-distended, EMS reports vomiting. : No signs and/or symptoms were reported regarding the genitourinary system. Derm: Skin is normal. Musculoskeletal: Circulation, motion, and sensation intact. Historical: - Allergies: 02:59 Keflex; ha1 - Immunization history:: Adult Immunizations unknown. - Social history:: Smoking status: unknown. Screenin:41 [facility] ED Fall Risk Assessment (Adult) History of falling in the last 3 months, ha1 including since admission Yes- single mechanical fall (1 pt) Confusion or Disorientation No (0 pts) Intoxicated or Sedated Yes (3 pts) Impaired Gait No (0 pts) Mobility Assist Device Used No (0 pt) Altered Elimination Yes (1 pt) Score/Fall Risk Level 3 or more points = High Risk Oriented to surroundings, Maintained a safe environment, Educated pt \\T\\ family on fall prevention, incl call for assistance when getting out of bed, Hourly rounding (assess needs \\T\\ fall precautionary measures) done. Abuse screen: Denies threats or abuse. Denies injuries from another. Nutritional screening: No deficits noted. 03:03 Tuberculosis screening: No symptoms or risk factors identified. ha1 Assessment: 02:41 Reassessment: see triage assessment. ha1 03:30 Reassessment: eyes closed. Respiratory: Airway is patent Respiratory effort is even, ha1 unlabored, Respiratory pattern is regular, symmetrical. 04:30 Reassessment: Patient and/or family updated on plan of care and expected duration. Pain ha1 level reassessed. Patient is alert, oriented x 3, equal unlabored respirations, skin warm/dry/pink. 05:30 Reassessment: Patient and/or family updated on plan of care and expected duration. Pain ha1 level reassessed. Patient is alert, oriented x 3, equal unlabored respirations, skin warm/dry/pink. Psych: 04:38 [place] Suicide Severity Screening: In the past month, have you wished you were ha1 or wished you could go to sleep and not wake up? Patient responds "No." "In the past month, have you actually had any thoughts of killing yourself?" Patient responds "no." "In your lifetime, have you ever done anything, started to do anything, or prepared to do anything to end your life?" Patient responds "no.". Subjective:. Objective: Patient is cooperative, Speech is normal. Interventions: Removed personal items and placed in bag. Safety Checks: Pt has been placed in a hallway bed/chair. Patient uses. Vital Signs: 02:41 Temp 98.4; Weight 43.09 kg; ha1 02:57 BP 109 / 59; Pulse 55; Resp 23; Pulse Ox 100% on R/A; kd3 03:30 BP 94 / 52; Pulse 85; Resp 18 S; Pulse Ox 97% on R/A; ha1 04:30 BP 115 / 72; Pulse 75; Resp 19 S; Pulse Ox 98% on R/A; ha1 05:30 BP 111 / 72; Pulse 64; Resp 18; Pulse Ox 98% on R/A; ha1 ED Course: 02:40 Patient arrived in ED. kb3 02:41 Arm band placed on right wrist. ha1 02:41 Patient has correct armband on for positive identification. Placed in gown. Bed in low ha1 position. Call light in reach. Side rails up X2. 02:46 Erwin Harry MD is Attending Physician. kdr 02:47 Jayshree Campuzano, MARANDA is Primary Nurse. kd3 02:50 Maintain EMS IV. Dressing intact. Good blood return noted. Site clean \\T\\ dry. Gauge \\T\\ vanegas 1 site: 20 patsy left AC. 02:53 Acetaminophen Sent. kd3 02:53 Basic Metabolic Panel Sent. kd3 02:53 CBC with Diff Sent. kd3 02:53 ETOH Level Sent. kd3 02:53 Hepatic Function Sent. kd3 02:57 Salicylate Sent. kd3 02:59 Triage completed. ha1 03:23 Acetaminophen Sent. ha1 03:23 Basic Metabolic Panel Sent. ha1 03:23 ETOH Level Sent. ha1 03:23 Hepatic Function Sent. ha1 03:23 Salicylate Sent. ha1 05:47 No provider procedures requiring assistance completed. IV discontinued, intact, ha1 bleeding controlled, No redness/swelling at site. Pressure dressing applied. 05:48 Provided Education on: alcohol abuse. ha1 Administered Medications: 02:47 Drug: Zofran (Ondansetron) 4 mg IVP once; over 2 minutes Route: IVP; Site: left kd3 antecubital; 03:15 Drug: NS 0.9% IV 1000 ml IV at 1000 ml once Route: IV; Rate: 1000 ml; Site: left ha1 antecubital; 05:48 Follow up: Response: No adverse reaction; IV Status: Completed infusion; IV Intake: ha1 1000ml Medication: 04:39 VIS not applicable for this client. ha1 Intake: 05:48 IV: 1000ml; Total: 1000ml. ha1 Outcome: 05:26 Discharge ordered by . kdr 05:47 Discharged to home ambulatory, ha1 05:47 Condition: stable 05:47 Discharge instructions given to patient, 05:47 Instructed on discharge instructions, follow up and referral plans. Demonstrated understanding of instructions, follow-up care, 05:49 Patient left the ED. ha1 Signatures: Erwin Harry MD MD [facility] Jayshree Campuzano, RN RN kd3 Sara Shaw, RN RN ha1 [place], Nisha, RN RN kb3
--- NOTE | 2023-06-08 05:27 | EDPHYS ---
Physician Documentation [facility] Name: Jens Renteria Jr Age: 17 yrs Sex: Male : 2005 Arrival Date: 06/08/2023 Time: 02:39 Bed 7 Private MD: ED Physician Erwin Harry HPI: 06/08 02:48 This 17 yrs old Male presents to ER via Unassigned with complaints of ETOH kdr Abuse. 02:48 EMS was called to the patient's residence where he was found unresponsive. According to kdr a another bystander/family member, patient had been drinking and was thought to be having difficulty breathing. EMS felt after the initial evaluation at the patient was simply intoxicated but brought the patient to the ED for further evaluation. Patient vital signs have been stable. His oxygen saturation is 100% on arrival. Vital signs otherwise are normal. Patient is moaning with agitation.. Onset: The symptoms/episode began/occurred just prior to arrival. Severity of symptoms: At their worst the symptoms were severe incapacitating just prior to arrival, in the emergency department the symptoms are unchanged. The patient has not experienced similar symptoms in the past. Historical: - Allergies: 02:59 Keflex; ha1 - Immunization history:: Adult Immunizations unknown. - Social history:: Smoking status: unknown. ROS: 03:22 Constitutional: Unobtainable secondary to altered mental status kdr 03:22 Unable to obtain ROS due to altered mental status, comatose state, obtunded state, Exam: 03:16 ECG was reviewed by the Attending Physician. kdr 03:22 Constitutional: This is a well developed, well nourished patient who is awake, alert, kdr and in no acute distress. Head/Face: Normocephalic, atraumatic. Eyes: Pupils equal round and reactive to light, extra-ocular motions intact. Lids and lashes normal. Conjunctiva and sclera are non-icteric and not injected. Cornea within normal limits. Periorbital areas with no swelling, redness, or edema. Neck: Trachea midline, no thyromegaly or masses palpated, and no cervical lymphadenopathy. Supple, full range of motion without nuchal rigidity, or vertebral point tenderness. No Meningismus. Chest/axilla: Normal chest wall appearance and motion. Nontender with no deformity. No lesions are appreciated. Cardiovascular: Regular rate and rhythm with a normal S1 and S2. No gallops, murmurs, or rubs. Normal PMI, no JVD. No pulse deficits. Respiratory: Lungs have equal breath sounds bilaterally, clear to auscultation and percussion. No rales, rhonchi or wheezes noted. No increased work of breathing, no retractions or nasal flaring. Abdomen/GI: Soft, non-tender, with normal bowel sounds. No distension or tympany. No guarding or rebound. No evidence of tenderness throughout. Back: No spinal tenderness. No costovertebral tenderness. Full range of motion. Skin: Warm, dry with normal turgor. Normal color with no rashes, no lesions, and no evidence of cellulitis. MS/ Extremity: Pulses equal, no cyanosis. Neurovascular intact. Full, normal range of motion. 03:22 Neuro: Obtunded, Vital Signs: 02:41 Temp 98.4; Weight 43.09 kg; ha1 02:57 BP 109 / 59; Pulse 55; Resp 23; Pulse Ox 100% on R/A; kd3 03:30 BP 94 / 52; Pulse 85; Resp 18 S; Pulse Ox 97% on R/A; ha1 04:30 BP 115 / 72; Pulse 75; Resp 19 S; Pulse Ox 98% on R/A; ha1 05:30 BP 111 / 72; Pulse 64; Resp 18; Pulse Ox 98% on R/A; ha1 MDM: 05:26 Patient medically screened. kdr 05:37 Data reviewed: vital signs, nurses notes, lab test result(s), radiologic studies. kdr 06/08 02:48 Order name: Acetaminophen; Complete Time: 03:28 kdr 06/08 02:48 Order name: Basic Metabolic Panel; Complete Time: 03:28 kdr 06/08 02:48 Order name: CBC with Diff; Complete Time: 03:18 kdr 06/08 02:48 Order name: ETOH Level; Complete Time: 03:28 kdr 06/08 02:48 Order name: Hepatic Function; Complete Time: 03:28 kdr 06/08 02:48 Order name: Salicylate; Complete Time: 03:28 kdr 06/08 02:48 Order name: Urine Drug Screen; Complete Time: 05:20 kdr 06/08 02:48 Order name: EKG; Complete Time: 02:49 kdr 06/08 02:48 Order name: EKG - Nurse/Tech; Complete Time: 03:22 kdr 06/08 02:48 Order name: IV Saline Lock; Complete Time: kdr 06/08 02:48 Order name: Labs collected and sent; Complete Time: kdr EC:16 Rate is 62 beats/min. Rhythm is regular, Normal Sinus Rhythm with No ectopy. QRS [place] kdr is Normal. VA interval is normal. QRS interval is normal. QT interval is normal. Clinical impression: Normal ECG. Administered Medications: 02:47 Drug: Zofran (Ondansetron) 4 mg IVP once; over 2 minutes Route: IVP; Site: left kd3 antecubital; 03:15 Drug: NS 0.9% IV 1000 ml IV at 1000 ml once Route: IV; Rate: 1000 ml; Site: left ha1 antecubital; 05:48 Follow up: Response: No adverse reaction; IV Status: Completed infusion; IV Intake: ha1 1000ml Disposition Summary: 06/08/23 05:26 Discharge Ordered Notes: Location: Home kdr Problem: new kdr Symptoms: have improved kdr Condition: Stable kdr Diagnosis - Altered mental status, unspecified kdr - Poly Substance abuse kdr Followup: kdr - With: Private Physician - When: 2 - 3 days - Reason: If symptoms return, Further diagnostic work-up, Recheck today's complaints, Continuance of care, Re-evaluation by your physician Discharge Instructions: - Discharge Summary Sheet kdr - Confusion kdr - Substance Use Disorder kdr Forms: - Medication Reconciliation Form kdr - Thank You Letter kdr - Patient Portal Instructions kdr - Leadership Thank You Letter kdr Signatures: Dispatcher [employer] Erwin Sanders MD MD kdr Jayshree Campuzano RN RN kd3 Sara Shaw RN RN 1
[2023-06-08 05:54] VITALS: TEMP 98.4
[2023-06-08 05:58] VITALS: O2SAT 98
[2023-06-08 05:59] VITALS: BP 111/72
--- NOTE | 2023-06-08 17:11 | EKG ---
Test Date: 2023-06-08 Test Time: 03:13:56 Chemistry Research Assistant: VIRGILIO MEASUREMENT RESULTS: Intervals: Rate: 62 RI: 146 QRSD: 92 QT: 400 QTc: 406 [place]: P: 85 RI: 146 QRS: 89 T: 67 INTERPRETIVE STATEMENTS: Normal sinus rhythm Normal ECG No previous ECG available for comparison Electronically Signed On 06-08-23 17:10:41 CDT by Edgar Garcia
== END 2023-06-08 05:49 | disposition home or self-care (01) ==
LOC: ER 02:39
DX: F19.10 Other psychoactive substance abuse, uncomplicated (principal)
CPT/HCPCS: 36415; 80048; 80076; 80143; 80179; 80307; 82077; 85025; 93005; 96361; 96374; 99284; J2405; J7030

== ENCOUNTER 2023-07-07 02:43 | Emergency (ER) | payer SELFPAY ==
--- OUTSIDE RECORDS SUMMARY | 2023-07-07 02:46 | XMS REPORT | Continuity of Care Document ---
:2005 Author Organization [facility] t Address [address] [place] [address] [address] [place] [address] Care Team Providers Name Role Phone LIEN CEE Primary Care Physician Unavailable LLUVIA SAMAYOA Attending Clinician Unavailable Lluvia Samayoa MD Attending Clinician Doctor Unassigned, [place] Attending Clinician Unavailable YARED MENDOSA Attending Clinician [...] Attending Clinician Madi Ivey MD Attending Clinician [phone] MADI IVEY Attending Clinician Unavailable Augustine Garza Attending Clinician AUGUSTINE KAYE Attending Clinician Unavailable Elisa Mejia MD Attending Clinician PROMISE SALEEM Admitting Clinician Unavailable Payers Payer Name Policy Type Policy Number Effective Date Expiration Date Penelope sparks [facility] [id number] 2017 00:00:00 [place] [id number] 2023 00:00:00 Problems Condition Condition Condition Status [...] Branch Decreased Decreased Disease Active Uni vers 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 6-08 ity of strength strength 00:00: [place] [...] INGREDI 4-24 ity of 00:00: [place] [facility] [place] Social History Social Habit Start Date Stop Date Quantity Comments Source Exposure to Not sure [facility] SARS-CoV-2 [facility] (event) [place] Tobacco use and 2018-01-08 2018-01-08 Smokeless tobacco Un iversity of exposure 00:00:00 00:00:00 non-user [facility] Sex Assigned At [birth year] Universit y of 00:00:00 00:00:00 [facility] Smoking Status Start Date Stop Date Source Never smoked tobacco [facility] Medications Ordered Filled Start Stop Current Ordering Indication Dosage Frequency Signature Comments Components Source Medication Medication Date Date Medication? Clinician (SIG) Name Name ondansetron 2021-0 Yes [id number] 4mg Take 1 Univers 4 mg 3-08 tablet by ity of disintegrat 00:00: mouth [place] ing tablet 00 every 8 Medica l (eight) Branch hours as needed for Nausea and Vomiting (N/V). ondansetron 0 Yes [id number] 4mg Take 1 Univers 4 mg 3-08 tablet by ity of disintegrat 00:00: mouth [place] ing tablet 00 every 8 Medica l (eight) Branch hours as needed for Nausea and Vomiting (N/V). ondansetron 0 Yes [id number] 4mg Take 1 Univers 4 mg 3-08 tablet by ity of disintegrat 00:00: mouth [place] ing tablet 00 every 8 Medica l (eight) Branch hours as needed for Nausea and Vomiting (N/V). ondansetron 0 Yes [id number] 4mg Take 1 Univers 4 mg 3-08 tablet by ity of disintegrat 00:00: mouth [place] ing tablet 00 every 8 Medica l (eight) Branch hours as needed for Nausea and Vomiting (N/V). FLUoxetine 0 Yes [id number] 20mg Take 1 U nivers 20 mg 8-05 capsule by ity of capsule 00:00: mouth [place] 00 daily. Medical Branch FLUoxetine 0 Yes [id number] 10mg Take 1 U nivers 10 mg 8-05 capsule by ity of capsule 00:00: mouth [place] 00 daily. Medical Branch hydrOXYzine 2020-0 Yes [id number] 25mg Take 1 Univers 25 mg 8-05 tablet by ity of tablet 00:00: mouth [place] 00 every 8 Medical (eight) Branch hours as needed for Anxiety. FLUoxetine 2020-0 Yes [id number] 20mg Take 1 U nivers 20 mg 8-05 capsule by ity of capsule 00:00: mouth [place] 00 daily. Medical Branch FLUoxetine 2020-0 Yes [id number] 10mg Take 1 U nivers 10 mg 8-05 capsule by ity of capsule 00:00: mouth [place] 00 daily. Medical Branch hydrOXYzine 2020-0 Yes [id number] 25mg Take 1 Univers 25 mg 8-05 tablet by ity of tablet 00:00: mouth [place] 00 every 8 Medical (eight) Branch hours as needed for Anxiety. FLUoxetine 2020-0 Yes [id number] 20mg Take 1 U nivers 20 mg 8-05 capsule by ity of capsule 00:00: mouth [place] 00 daily. Medical Branch FLUoxetine 0 Yes [id number] 10mg Take 1 U nivers 10 mg 8-05 capsule by ity of capsule 00:00: mouth [place] 00 daily. Medical Branch hydrOXYzine 0 Yes [id number] 25mg Take 1 Univers 25 mg 8-05 tablet by ity of tablet 00:00: mouth [place] 00 every 8 Medical (eight) Branch hours as needed for Anxiety. FLUoxetine 0 Yes [id number] 20mg Take 1 U nivers 20 mg 8-05 capsule by ity of capsule 00:00: mouth [place] 00 daily. Medical Branch FLUoxetine 0 Yes [id number] 10mg Take 1 U nivers 10 mg 8-05 capsule by ity of capsule 00:00: mouth [place] 00 daily. Medical Branch hydrOXYzine Yes [id number] 25mg Take 1 Univers 25 mg 8-05 tablet by ity of tablet 00:00: mouth [place] 00 every 8 Medical (eight) Branch hours as needed for Anxiety. FLUoxetine Yes [id number] 20mg Take 1 U nivers 20 mg 6-22 capsule by ity of capsule 00:00: mouth [place] 00 daily. Medical Branch FLUoxetine 0 Yes [id number] 20mg Take 1 U nivers 20 mg 6-22 capsule by ity of capsule 00:00: mouth [place] 00 daily. Medical Branch FLUoxetine 0 Yes [id number] 20mg Take 1 U nivers 20 mg 6-22 capsule by ity of capsule 00:00: mouth [place] 00 daily. Medical Branch FLUoxetine 0 Yes [id number] 20mg Take 1 U nivers 20 mg 6-22 capsule by ity of capsule 00:00: mouth [place] 00 daily. Medical Branch omeprazole 2020-0 Yes [id number] 20mg Take 1 Univers 20 mg 3-05 capsule by ity of capsule 00:00: mouth [place] 00 daily. Medical Branch omeprazole 2020-0 Yes [id number] 20mg Take 1 Univers 20 mg 3-05 capsule by ity of capsule 00:00: mouth [place] 00 daily. Medical Branch omeprazole 2020-0 Yes [id number] 20mg Take 1 Univers 20 mg 3-05 capsule by ity of capsule 00:00: mouth [place] 00 daily. Medical Branch omeprazole Yes [id number] 20mg Take 1 Univers 20 mg 3-05 capsule by ity of capsule 00:00: mouth [place] 00 daily. [facility] Vital Signs Vital Name Observation Time Observation Value Comments Source Systolic blood 2021-12-27 19:33:00 118 mm[Hg] Univer sity of pressure [facility] Diastolic blood 2021-12-27 19:33:00 77 mm[Hg] Unive rsity of [facility] Heart rate 2021-12-27 19:33:00 93 /min Universi ty [facility] Respiratory rate 2021-12-27 19:33:00 16 /min Univ ersity of [facility] Body weight 2021-12-27 19:33:[address] [facility] Procedures Procedure Date / Time Performing Clinician Source Performed [employer]URANCE [employer]RESPONDENCE 2023-02-10 05:01:00 Doctor Anibal, [facility] [place] [facility] Encounters Start End Encounter Admission Attending Care Care Encounter Source Date/Time Date/Time Type Type Clinicians Facility Department ID 2021-07-[address] [facility] [id number] Univers 08:31:39 kamini [facility] 2023-04-03 2023-04-03 [facility] [id number] Univers 14:00:00 14:00:00 LLUVIA kamini [facility] 2023-03-23 2023-03-23 Out[facility] [id number] [facility] 14:00:00 14:00:00 LLUVIA [facility] 2023-03-23 2023-03-23 [facility] 1.2.840.114 [id number] Univers 00:00:00 00:00:00 (Out) Lluvia PERALTA [id number] i ty of [place] 4.2.7.2.686 Samy GAMBLE [id number] Nd dical NAL [address] [place] [address] 2023-02-10 2023-02-10 Orders Doctor JOHNSON 1.2.840.114 [id number] Univers 00:00:00 00:00:00 Only Unassigned, ANDRE [id number] ity [place] [facility] 4.2.7.2.686 Dong as [id number] [facility] 009 Branch 2022-01-10 2022-01-10 Outpatient R NAVYA [facility] [id number] Univers 13:00:00 13:00:00 YARED bairdkamini [facility] 2021-12-27 2021-12-27 Outpatient R LAIRD-BELLE [facility] [id number] Univers 14:30:00 15:03:18 , HORTENSIA cagle [facility] 2021-12-27 2021-12-27 [facility] 1.2.840.114 [id number] Univers 14:30:00 15:03:18 Visit , Hortensia GUPTA 350.1.13.10 it [place] [place] [facility] [id number] [address] 2021-12-27 2021-12-27 [facility] [id number] Univers 14:30:00 15:03:18 , HORTENSIA cagle [facility] 2021-12-14 2021-12-14 Outpatient R LIEN CEE [facility] [id number] Univers 08:40:00 08:53:05 ity [facility] 2021-12-14 2021-12-14 Lodge Officer Nurse, Dewey Beverly [facility] 1.2.8 [id number] Univers 08:40:00 08:53:05 Visit Lien Cee [id number] [place] [facility] [id number] [address] 2021-12-13 2021-12-13 [id number] Univers 09:50:00 10:37:19 , HORTENSIA cagle [facility] 2021-12-13 2021-12-13 Outpatient R [facility] [id number] Univers 09:50:00 10:37:19 , HORTENSIA cagle [facility] 2021-12-13 2021-12-13 Outpatient R [facility] [id number] Univers 08:10:00 08:10:00 , HORTENSIA cagle [facility] 2021-12-13 2021-12-13 Orders Doctor ALEX 1.2.840.114 [id number] Univers 00:00:00 00:00:00 Only Unassigned, ANDRE 350.1.13.10 ity of [place] [facility] 4.2.7.2.686 [facility] [phone] [facility] 009 Branch 2021-11-22 2021-11-22 Emergency X [facility] ERT [id number] Univers 09:12:00 09:48:00 BRAYAN cagle [facility] 2021-11-22 2021-11-22 [facility] [id number] Univers 09:12:00 09:48:00 Brayan PERALTA 350.1.13.10 i [facility] 4.2.7.2.686 [facility] [id number] [facility] 084 Branch 2021-05-30 2021-05-30 Outpatient R ROLAND [facility] [id number] Univers 15:50:00 15:50:00 , HORTENSIA cagle [facility] 2021-04-21 2021-04-21 Office [facility] Vadim 1.2.840.114 [id number] Univers 11:06:47 11:56:04 Visit Thuy Gupta 350.1.13.10 [place] [facility] [id number] [address] 2021-04-21 2021-04-21 Outpatient Ryan WALLER [facility] [id number] Univers 10:40:00 10:40:00 THUY cagle [facility] 2021-04-21 2021-04-21 Letter Sridhar [facility] 1.2.840.114 [id number] Univers 00:00:00 00:00:00 (Out) Thuy Gupta 350.1.13.10 [place].2.[place] [facility] [id number] [address] 2021-04-05 2021-04-05 Outpatient [facility] [id number] Univers 11:20:00 11:20:00 THUY ity of [facility] 2021-03-31 2021-03-31 Emergency [facility] 1.2.840.114 [id number] Univers 16:02:00 21:18:00 Keira Peralta 350.1.13.10 [place].2.[place] [id number] [facility] 084 [place] 2021-03-17 2021-03-17 Telephone Lien Cee [facility] 1.2.840.114 [id number] Univers 00:00:00 00:00:00 Alonso 350.1.13.10 [place]7.2.[place] [facility] [id number] [facility] 225 [place] 2021-03-08 2021-03-08 Office Lien Cee [facility] 1.2.840.114 [id number] Univers 10:58:33 11:51:15 Visit Alonso 350.1.13.10 [place]7.2.[place] [facility] [id number] [address] 2021-03-08 2021-03-08 Outpatient R LIEN CEE [facility] [id number] Univers 11:20:00 11:20:00 ity of [facility] 2021-02-22 2021-02-22 Outpatient R HARPER [facility] [id number] Univers 10:45:00 11:45:47 PROMISE bairdy [facility] 2021-02-22 2021-02-22 Ancillary Deniz Hines [facility] 1.2. 840.114 [id number] Univers 10:40:09 11:45:47 Visit Promise Saleem 350.1.13.10 ity of [place] 4.2.7.2.686 [facility] [phone] [address] 2021-02-01 2021-02-01 Office [facility] 1.2.577.595 [id number] Univers 10:23:45 11:20:58 Visit Madi SANTAMARIA 350.1.13.10 ity of [facility] 4.2.7.2.686 [facility] AT [id number] Nd dical VICTORY 198 [facility] 2021-02-01 2021-02-01 Outpatient R LONI [facility] [id number] Univers 10:40:00 10:40:00 MADI briekamini [facility] 2021-01-28 2021-01-28 Office [facility] 1.2.840.114 [id number] Univers 09:43:18 09:58:18 Visit [facility] 350.1.13.10 it y of Surgical 4.2.7.2.686 [place] as Specialti [id number] Nd dical es 198 [facility] 2021-01-28 2021-01-28 Outpatient [facility] [id number] Univers 09:45:00 09:45:00 AUGUSTINE cagle [facility] 2021-01-28 2021-01-28 Letter [facility] 1.2.840.114 [id number] Univers 00:00:00 00:00:00 (Out) [facility] 350.1.13.10 it y of Surgical 4.2.7.2.686 [place] as Specialti [id number] Nd dicoleg es 198 [facility] 2021-01-13 2021-01-13 Outpatient R [facility] [id number] Univers 10:36:15 23:59:00 PROMISE cagle [facility] 2021-01-13 2021-01-13 [facility] 1.2.840.114 [id number] Univers 10:36:15 23:59:00 Encounter Promise Peralta 350.1.13.10 itkamini [facility] 4.2.7.2.686 [facility] [phone] [facility] 804 [place] 2021-01-13 2021-01-13 Outpatient R [facility] [id number] Univers 00:00:00 00:00:00 PROMISE cagle [facility] 2021-01-13 2021-01-13 Orders Doctor JOHNSON 1.2.840.114 [id number] Univers 00:00:00 00:00:00 Only Unassigned, ANDRE 350.1.13.10 ity of [place] [facility] 4.2.7.2.686 Dong as [id number] [facility] 009 Branch 2021-01-03 2021-01-03 Outpatient R [facility] [id number] Univers 00:00:00 00:00:00 PROMISE itkamini [facility] 2020-12-24 2020-12-24 Outpatient R [facility] [id number] Univers 08:44:09 23:59:[facility] 2020-12-24 2020-12-24 Outpatient [facility] [id number] Univers 08:44:09 23:59:[facility] 2020-12-24 2020-12-24 [facility] 1.2.840.114 [id number] Univers 08:44:09 23:59:00 Encounter [facility] 350.1.13.10 ity of Surgical 4.2.7.2.686 [place] Specialti [id number] Nd dical es 809 [facility] 2020-12-24 2020-12-24 Office [facility] [id number] Univers 08:30:48 09:19:56 Visit [facility] 350.1.13.10 it y of Surgical 4.2.7.2.686 [place] as Specialti [phone] Me dical es 198 [facility] 2020-12-24 2020-12-24 Letter [facility] 1.2.840.114 [id number] Univers 00:00:00 00:00:00 (Out) [facility] 350.1.13.10 it y of Surgical 4.2.7.2.686 [place] as Specialti [id number] Nd dical es 198 [facility] 2020-12-14 2020-12-14 Office Lien Cee [facility] 1.2.840.114 [id number] Univers 09:10:37 09:51:05 Visit Alonso 350.1.13.10 [place].7.2.686 [place] [facility] [id number] [facility] 225 Branch 2020-12-14 2020-12-14 Outpatient R LIEN CEE [facility] [id number] Univers 09:40:00 09:40:00 ity of [facility] 2020-11-17 2020-11-17 Telephone Lien Cee [facility] 1.2.840.114 [id number] Univers 00:00:00 00:00:00 Alonso 350.1.13.10 it y [place]2.7.2.686 [place] [facility] [id number] [address] 2020-11-16 2020-11-16 Billing Lien Cee [facility] 1.2.840.114 [id number] Univers 17:00:00 17:15:00 Encounter Alonso 350.1.13.10 ity of [place] 4[place]2.7.2.686 [place] [facility] [id number] [address] 2020-11-16 2020-11-16 Office Lien Cee [facility] 1.2.840.114 [id number] Univers 15:35:35 16:31:31 Visit Alonso 350.1.13.10 it y of [place] 4[place]2.7.2.686 [place] [facility] [id number] [address] 2020-11-16 2020-11-16 Outpatient R LIEN CEE [facility] [id number] Univers 15:40:00 15:40:00 ity of [facility] 2020-11-16 2020-11-16 Orders Doctor ALEX 1.2.840.114 [id number] Univers 00:00:00 00:00:00 Only Unassigned, ANDRE 350.1.13.10 ity of [place] [facility] 4.2.7.2.686 Dong as [id number] [place] [address] Branch 2019-05-23 2019-05-23 Telephone [facility] 1.2.840.11 [id number] Univers 00:00:00 00:00:00 Elisa Weems 350.1.13.10 ity [place].7.2.686 [place] [facility] [id number] [facility] 225 [place] 2019-05-12 2019-05-12 Office [facility] 1.2.840.114 [id number] [facility] 10:07:34 11:01:28 Visit Elisa Weems 350.1.13.10 ity of Pediatric 4.2.7.2.686 [facility] [id number] [place] [address] Branch 2019-05-12 2019-05-12 [facility] 1.2.840.114 [id number] [facility] 00:00:00 00:00:00 (Out) Elisa Weems 350.1.13.10 ity of Pediatric 4.2.7.2.686 [facility] [id number] [place] [address] Branch Results This patient has no known results.
[2023-07-07] MEDS ORDERED: ONDANSETRON 4 MG/2 ML VIAL ONE (03:13)
[2023-07-07] MEDS ORDERED: NA CHLORIDE 0.9% 1,000 ML ONE (03:13)
[2023-07-07 03:15] LABS: Absolute Lymphocytes (CBC) 1.8 K/uL (0.7-4.9); Hematocrit 42.1 % (39.6-49.0); Lymphocytes % 20.6 % (15.3-44.8); MCV 88.6 fL (80-100); MPV 7.2 fL (7.6-11.3); Platelets 268 thou/uL (152-406); RBC Red Blood Cell Count 4.75 M/uL (4.33-5.43)
[2023-07-07 03:24] LABS: Potassium 3.4 mEq/L (3.5-5.1)
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
[2023-07-07 05:55] VITALS: TEMP 98; O2SAT 100
[2023-07-07 06:12] VITALS: BP 114/70
--- NOTE | 2023-07-07 14:46 | RAD REPORT ---
EXAM DESCRIPTION: CT - Head C Spine Mpr Wo Con - 07/07/2023 6:36 am CLINICAL HISTORY: The patient is 17 years old and is Male; TRAUMA TECHNIQUE: Axial computed tomography images of the head/brain and cervical spine without intravenous contrast. Sagittal and coronal reformatted images were created and reviewed. This CT exam was pe rformed using one or more of the following dose reduction techniques: automated exposure control, a djustment of the mA and/or kV according to patient size, and/or use of iterative reconstruction techn ique. COMPARISON: No relevant prior studies available. FINDINGS: Brain: Unremarkable. No hemorrhage. No significant white matter disease. No edema. Ventricles: Unremarkable. No ventriculomegaly. Skull: Comminuted fractures involving the posterior wall of the left maxillary sinus extending in to the lateral wall of the left orbit. Air-fluid level in the left maxillary sinus. Sinuses: Air-fluid level in the left sphenoid sinus. Mastoid air cells: Unremarkable as visualized. No mastoid effusion. Vertebrae: Unremarkable. No acute fracture. Normal alignment. Discs/spinal canal/neural foramina: No acute findings. No spinal canal stenosis. Soft tissues: Left malar soft tissue swelling. * A single impression for all exams can be found at the end of this report EXAM DESCRIPTION: CT Maxillofacial Without Intravenous Contrast CLINICAL HISTORY: The patient is 17 years old and is Male; TRAUMA TECHNIQUE: Axial computed tomography images of the face without intravenous contrast. Sagittal and coronal reformatted images were created and reviewed. This CT exam was performed using one or more of the following dose reduction techniques: automated exposure control, adjustment of the mA and/o r kV according to patient size, and/or use of iterative reconstruction technique. COMPARISON: No relevant prior studies available. FINDINGS: Bones/joints: Comminuted fractures involving the posterior wall of the left maxillary si nus extending into the lateral wall of the left orbit. Remote appearing fracture of the left zygomatic process. Soft tissues: Left malar soft tissue swelling. Orbits: Unremarkable. Sinuses: Air-fluid level in the left sphenoid sinus. Air-fluid level in the left maxillary sinus. * A single impression for all exams can be found at the end of this report COMPARISON: CT Abdomen and Pelvis With Intravenous Contrast CLINICAL HISTORY: The patient is 17 years old and is Male; TRAUMA TECHNIQUE: Axial computed tomography images of the abdomen and pelvis with intravenous contrast. S agittal and coronal reformatted images were created and reviewed. This CT exam was performed using one or more of the following dose reduction techniques: automated exposure control, adjustment of t he mA and/or kV according to patient size, and/or use of iterative reconstruction technique. COMPARISON: No relevant prior studies available. FINDINGS: Lung bases: Unremarkable. No mass. No consolidation. ABDOMEN: Liver: Unremarkable. No mass. Gallbladder and bile ducts: Unremarkable. No calcified stones. No ductal dilation. Pancreas: Unremarkable. No mass. No ductal dilation. Spleen: Unremarkable. No splenomegaly. Adrenals: Unremarkable. No mass. Kidneys and ureters: Unremarkable. No solid mass. No hydronephrosis. Stomach and bowel: Unremarkable. No obstruction. No mucosal thickening. PELVIS: Appendix: No findings to suggest acute appendicitis. Bladder: Unremarkable. Reproductive: Unremarkable as visualized. ABDOMEN and PELVIS: Intraperitoneal space: Unremarkable. No free air. No significant fluid collection. Bones/joints: No acute fracture. No dislocation. Soft tissues: Unremarkable. Vasculature: Unremarkable. No abdominal aortic aneurysm. Lymph nodes: Unremarkable. No enlarged lymph nodes. * A single impression for all exams can be found at the end of this report COMPARISON: XR Chest, 1 View CLINICAL HISTORY: The patient is 17 years old and is Male; TRAUMA TECHNIQUE: Frontal view of the chest. COMPARISON: No relevant prior studies available. FINDINGS: Lungs: Unremarkable. No consolidation. Pleural space: Unremarkable. No pneumothorax. Heart: Unremarkable. Mediastinum: Unremarkable. Bones/joints: No acute findings. * A single impression for all exams can be found at the end of this report IMPRESSION: CT Head and Cervical Spine Without Intravenous Contrast: No acute intracranial abnormality. No acute findings in the cervical spine. CT Maxillofacial Without Intravenous Contrast: Comminuted fractures involving the posterior wall of the left maxillary sinus extending into the la teral wall of the left orbit. CT Abdomen and Pelvis With Intravenous Contrast: No acute finding in the abdomen/pelvis. XR Chest, 1 View: No acute findings in the chest. Electronically signed by: Nestor Greenwood MD 07/07/2023 5:00 AM CDT Due to temporary technical issues with the PACS/Fluency reporting system, reports are being signed by the in house radiologists without review as a courtesy to insure prompt reporting. The interpreting radiologist is fully responsible for the content of the report.
--- NOTE | 2023-07-07 14:50 | RAD REPORT ---
EXAM DESCRIPTION: CT - Abdomen Pelvis W Contrast - 07/07/2023 6:35 am CLINICAL HISTORY: The patient is 17 years old and is Male; TRAUMA TECHNIQUE: Axial computed tomography images of the head/brain and cervical spine without intravenous contrast. Sagittal and coronal reformatted images were created and reviewed. This CT exam was pe rformed using one or more of the following dose reduction techniques: automated exposure control, a djustment of the mA and/or kV according to patient size, and/or use of iterative reconstruction techn ique. COMPARISON: No relevant prior studies available. FINDINGS: Brain: Unremarkable. No hemorrhage. No significant white matter disease. No edema. Ventricles: Unremarkable. No ventriculomegaly. Skull: Comminuted fractures involving the posterior wall of the left maxillary sinus extending in to the lateral wall of the left orbit. Air-fluid level in the left maxillary sinus. Sinuses: Air-fluid level in the left sphenoid sinus. Mastoid air cells: Unremarkable as visualized. No mastoid effusion. Vertebrae: Unremarkable. No acute fracture. Normal alignment. Discs/spinal canal/neural foramina: No acute findings. No spinal canal stenosis. Soft tissues: Left malar soft tissue swelling. * A single impression for all exams can be found at the end of this report EXAM DESCRIPTION: CT Maxillofacial Without Intravenous Contrast CLINICAL HISTORY: The patient is 17 years old and is Male; TRAUMA TECHNIQUE: Axial computed tomography images of the face without intravenous contrast. Sagittal and coronal reformatted images were created and reviewed. This CT exam was performed using one or more of the following dose reduction techniques: automated exposure control, adjustment of the mA and/o r kV according to patient size, and/or use of iterative reconstruction technique. COMPARISON: No relevant prior studies available. FINDINGS: Bones/joints: Comminuted fractures involving the posterior wall of the left maxillary si nus extending into the lateral wall of the left orbit. Remote appearing fracture of the left zygomatic process. Soft tissues: Left malar soft tissue swelling. Orbits: Unremarkable. Sinuses: Air-fluid level in the left sphenoid sinus. Air-fluid level in the left maxillary sinus. * A single impression for all exams can be found at the end of this report EXAM DESCRIPTION: CT Abdomen and Pelvis With Intravenous Contrast CLINICAL HISTORY: The patient is 17 years old and is Male; TRAUMA TECHNIQUE: Axial computed tomography images of the abdomen and pelvis with intravenous contrast. S agittal and coronal reformatted images were created and reviewed. This CT exam was performed using one or more of the following dose reduction techniques: automated exposure control, adjustment of t he mA and/or kV according to patient size, and/or use of iterative reconstruction technique. COMPARISON: No relevant prior studies available. FINDINGS: Lung bases: Unremarkable. No mass. No consolidation. ABDOMEN: Liver: Unremarkable. No mass. Gallbladder and bile ducts: Unremarkable. No calcified stones. No ductal dilation. Pancreas: Unremarkable. No mass. No ductal dilation. Spleen: Unremarkable. No splenomegaly. Adrenals: Unremarkable. No mass. Kidneys and ureters: Unremarkable. No solid mass. No hydronephrosis. Stomach and bowel: Unremarkable. No obstruction. No mucosal thickening. PELVIS: Appendix: No findings to suggest acute appendicitis. Bladder: Unremarkable. Reproductive: Unremarkable as visualized. ABDOMEN and PELVIS: Intraperitoneal space: Unremarkable. No free air. No significant fluid collection. Bones/joints: No acute fracture. No dislocation. Soft tissues: Unremarkable. Vasculature: Unremarkable. No abdominal aortic aneurysm. Lymph nodes: Unremarkable. No enlarged lymph nodes. * A single impression for all exams can be found at the end of this report EXAM DESCRIPTION: XR Chest, 1 View CLINICAL HISTORY: The patient is 17 years old and is Male; TRAUMA TECHNIQUE: Frontal view of the chest. COMPARISON: No relevant prior studies available. FINDINGS: Lungs: Unremarkable. No consolidation. Pleural space: Unremarkable. No pneumothorax. Heart: Unremarkable. Mediastinum: Unremarkable. Bones/joints: No acute findings. * A single impression for all exams can be found at the end of this report IMPRESSION: CT Head and Cervical Spine Without Intravenous Contrast: No acute intracranial abnormality. No acute findings in the cervical spine. CT Maxillofacial Without Intravenous Contrast: Comminuted fractures involving the posterior wall of the left maxillary sinus extending into the la teral wall of the left orbit. CT Abdomen and Pelvis With Intravenous Contrast: No acute finding in the abdomen/pelvis. XR Chest, 1 View: No acute findings in the chest. Electronically signed by: Nestor Greenwood MD 07/07/2023 5:00 AM CDT Due to temporary technical issues with the PACS/Fluency reporting system, reports are being signed by the in house radiologists without review as a courtesy to insure prompt reporting. The interpreting radiologist is fully responsible for the content of the report.
== END 2023-07-07 05:32 | disposition home or self-care (01) ==
LOC: ER 02:43
DX: S02.401A Maxillary fracture, unspecified side, initial encounter for closed fracture (principal); S02.849A Fracture of lateral orbital wall, unspecified side, initial encounter for closed fracture
CPT/HCPCS: 36415; 70450; 70486; 71045; 72125; 74177; 76377; 80048; 85025; 96374; 99284; J2405; J7030; Q9967

== ENCOUNTER 2023-07-10 08:41 | Emergency (ER) | payer SELFPAY ==
--- OUTSIDE RECORDS SUMMARY | 2023-07-10 08:45 | XMS REPORT | Continuity of Care Document ---
:2005 Author Organization [facility] t Address [address] [place] [address] [address] [place] [address] Care Team Providers Name Role Phone LIEN CEE Primary Care Physician Unavailable LLUVIA SAMAYOA Attending Clinician Unavailable Lluvia Samayoa MD Attending Clinician Doctor Unassigned, [place] Attending Clinician Unavailable YARED MENDOSA Attending Clinician [...] Attending Clinician Madi Ivey MD Attending Clinician [phone] MADI IVEY Attending Clinician Unavailable Augustine Garza Attending Clinician AUGUSTINE KAYE Attending Clinician Unavailable Elisa Mejia MD Attending Clinician PROMISE SALEEM Admitting Clinician Unavailable Payers Payer Name Policy Type Policy Number Effective Date Expiration Date Penelope sparks [facility] [id number] 2017 00:00:00 [place] [id number] 2023 00:00:00 Problems Condition Condition Condition Status [...] Branch Decreased Decreased 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 of 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 strength 00:00: [place] [...] INGREDI 4-24 ity of 00:00: [place] [facility] [place] Social History Social Habit Start Date Stop Date Quantity Comments Source Exposure to Not sure [facility] SARS-CoV-2 [facility] (event) [place] Tobacco use and 2018-01-08 2018-01-08 Smokeless tobacco Un iversity of exposure 00:00:00 00:00:00 non-user [facility] Sex Assigned At [birth year] Universit y of 00:00:00 00:00:00 [facility] Smoking Status Start Date Stop Date Source Never smoked tobacco [facility] Medications Ordered Filled Start Stop Current Ordering Indication Dosage Frequency Signature Comments Components Source Medication Medication Date Date Medication? Clinician (SIG) Name Name ondansetron 2021-0 Yes [id number] 4mg Take 1 Univers 4 mg 3-08 tablet by ity of disintegrat 00:00: mouth [place] ing tablet 00 every 8 Medica l (eight) Branch hours as needed for Nausea and Vomiting (N/V). ondansetron 0 Yes [id number] 4mg Take 1 Univers 4 mg 3-08 tablet by ity of disintegrat 00:00: mouth [place] ing tablet 00 every 8 Medica l (eight) Branch hours as needed for Nausea and Vomiting (N/V). ondansetron 0 Yes [id number] 4mg Take 1 Univers 4 mg 3-08 tablet by ity of disintegrat 00:00: mouth [place] ing tablet 00 every 8 Medica l (eight) Branch hours as needed for Nausea and Vomiting (N/V). ondansetron 0 Yes [id number] 4mg Take 1 Univers 4 mg 3-08 tablet by ity of disintegrat 00:00: mouth [place] ing tablet 00 every 8 Medica l (eight) Branch hours as needed for Nausea and Vomiting (N/V). FLUoxetine 0 Yes [id number] 20mg Take 1 U nivers 20 mg 8-05 capsule by ity of capsule 00:00: mouth [place] 00 daily. Medical Branch FLUoxetine 0 Yes [id number] 10mg Take 1 U nivers 10 mg 8-05 capsule by ity of capsule 00:00: mouth [place] 00 daily. Medical Branch hydrOXYzine 2020-0 Yes [id number] 25mg Take 1 Univers 25 mg 8-05 tablet by ity of tablet 00:00: mouth [place] 00 every 8 Medical (eight) Branch hours as needed for Anxiety. FLUoxetine 2020-0 Yes [id number] 20mg Take 1 U nivers 20 mg 8-05 capsule by ity of capsule 00:00: mouth [place] 00 daily. Medical Branch FLUoxetine 2020-0 Yes [id number] 10mg Take 1 U nivers 10 mg 8-05 capsule by ity of capsule 00:00: mouth [place] 00 daily. Medical Branch hydrOXYzine 2020-0 Yes [id number] 25mg Take 1 Univers 25 mg 8-05 tablet by ity of tablet 00:00: mouth [place] 00 every 8 Medical (eight) Branch hours as needed for Anxiety. FLUoxetine 2020-0 Yes [id number] 20mg Take 1 U nivers 20 mg 8-05 capsule by ity of capsule 00:00: mouth [place] 00 daily. Medical Branch FLUoxetine 0 Yes [id number] 10mg Take 1 U nivers 10 mg 8-05 capsule by ity of capsule 00:00: mouth [place] 00 daily. Medical Branch hydrOXYzine 0 Yes [id number] 25mg Take 1 Univers 25 mg 8-05 tablet by ity of tablet 00:00: mouth [place] 00 every 8 Medical (eight) Branch hours as needed for Anxiety. FLUoxetine 0 Yes [id number] 20mg Take 1 U nivers 20 mg 8-05 capsule by ity of capsule 00:00: mouth [place] 00 daily. Medical Branch FLUoxetine 0 Yes [id number] 10mg Take 1 U nivers 10 mg 8-05 capsule by ity of capsule 00:00: mouth [place] 00 daily. Medical Branch hydrOXYzine Yes [id number] 25mg Take 1 Univers 25 mg 8-05 tablet by ity of tablet 00:00: mouth [place] 00 every 8 Medical (eight) Branch hours as needed for Anxiety. FLUoxetine Yes [id number] 20mg Take 1 U nivers 20 mg 6-22 capsule by ity of capsule 00:00: mouth [place] 00 daily. Medical Branch FLUoxetine 0 Yes [id number] 20mg Take 1 U nivers 20 mg 6-22 capsule by ity of capsule 00:00: mouth [place] 00 daily. Medical Branch FLUoxetine 0 Yes [id number] 20mg Take 1 U nivers 20 mg 6-22 capsule by ity of capsule 00:00: mouth [place] 00 daily. Medical Branch FLUoxetine 0 Yes [id number] 20mg Take 1 U nivers 20 mg 6-22 capsule by ity of capsule 00:00: mouth [place] 00 daily. Medical Branch omeprazole 2020-0 Yes [id number] 20mg Take 1 Univers 20 mg 3-05 capsule by ity of capsule 00:00: mouth [place] 00 daily. Medical Branch omeprazole 2020-0 Yes [id number] 20mg Take 1 Univers 20 mg 3-05 capsule by ity of capsule 00:00: mouth [place] 00 daily. Medical Branch omeprazole 2020-0 Yes [id number] 20mg Take 1 Univers 20 mg 3-05 capsule by ity of capsule 00:00: mouth [place] 00 daily. Medical Branch omeprazole Yes [id number] 20mg Take 1 Univers 20 mg 3-05 capsule by ity of capsule 00:00: mouth [place] 00 daily. [facility] Vital Signs Vital Name Observation Time Observation Value Comments Source Systolic blood 2021-12-27 19:33:00 118 mm[Hg] Univer sity of pressure [facility] Diastolic blood 2021-12-27 19:33:00 77 mm[Hg] Unive rsity of [facility] Heart rate 2021-12-27 19:33:00 93 /min Universi ty [facility] Respiratory rate 2021-12-27 19:33:00 16 /min Univ ersity of [facility] Body weight 2021-12-27 19:33:00 39.179 kg [facility] Procedures Procedure Date / Time Performing Clinician Source Performed [employer]URANCE [employer]RESPONDENCE 2023-02-10 05:01:00 Doctor Anibal, [facility] [place] [facility] Encounters Start End Encounter Admission Attending Care Care Encounter Source Date/Time Date/Time Type Type Clinicians Facility Department ID 2021-07-18 Emergency [facility] [id number] Univers 08:31:39 kamini [facility] 2023-04-03 2023-04-03 [id number] Univers 14:00:00 14:00:00 LLUVIA kamini [facility] 2023-03-23 2023-03-23 [facility] [id number] [facility] 14:00:00 14:00:00 LLUVIA [facility] 2023-03-23 2023-03-23 [facility] 1.2.840.114 [id number] Univers 00:00:00 00:00:00 (Out) Lluvia PERALTA 350.1.13.10 i ty of [place] 4.2.7.2.686 Samy GAMBLE [id number] Nh dical NAL [address] [place] [address] 2023-02-10 2023-02-10 Orders Doctor JOHNSON 1.2.840.114 [id number] Univers 00:00:00 00:00:00 Only Unassigned, ANDRE 350.1.13.10 ity [place] [facility] 4.2.7.2.686 Dong as [id number] [facility] 009 Branch 2022-01-10 2022-01-10 Outpatient R NAVYA [facility] [id number] Univers 13:00:00 13:00:00 YARED bairdkamini [facility] 2021-12-27 2021-12-27 Outpatient R LAIRD-BELLE [facility] [id number] Univers 14:30:00 15:03:18 , HORTENSIA cagle [facility] 2021-12-27 2021-12-27 [facility] 1.2.840.114 [id number] Univers 14:30:00 15:03:18 Visit , Hortensia GUPTA 350.1.13.10 it [place] [facility] [id number] [address] 2021-12-27 2021-12-27 [facility] [id number] Univers 14:30:00 15:03:18 , HORTENSIA cagle [facility] 2021-12-14 2021-12-14 Outpatient R LIEN CEE [facility] [id number] Univers 08:40:00 08:53:05 ity [facility] 2021-12-14 2021-12-14 [employer] 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, [facility] 1.2.8 40.114 [id number] Univers 08:40:00 08:53:05 Visit Lien Cee 350.1.13.10 [place] [facility] [id number] [address] 2021-12-13 2021-12-13 [facility] [id number] Univers 09:50:00 10:37:19 , HORTENSIA cagle [facility] 2021-12-13 2021-12-13 Outpatient R LAIRD-PSYCHIATRIC [id number] Univers 09:50:00 10:37:19 , HORTENSIA cagle [facility] 2021-12-13 2021-12-13 Outpatient R LAIRD-PSYCHIATRIC [id number] Univers 08:10:00 08:10:00 , HORTENSIA cagle [facility] 2021-12-13 2021-12-13 Orders Doctor ALEX 1.2.840.114 [id number] Univers 00:00:00 00:00:00 Only Unassigned, ANDRE 350.1.13.10 ity of [place] [facility] 4.2.7.2.686 [facility] [id number] [facility] 009 Branch 2021-11-22 2021-11-22 Emergency X [facility] ERT [id number] Univers 09:12:00 09:48:00 BRAYAN cagle [facility] 2021-11-22 2021-11-22 [facility] [id number] Univers 09:12:00 09:48:00 Brayan PERALTA 350.1.13.10 i [facility] 4.2.7.2.686 [facility] [id number] [facility] 084 Branch 2021-05-30 2021-05-30 Outpatient R ROLAND [facility] [id number] Univers 15:50:00 15:50:00 , HORTENSIA cagle [facility] 2021-04-21 2021-04-21 Office [facility] Vadim 1.2.840.114 [id number] Univers 11:06:47 11:56:04 Visit Thuy Gupta 350.1.13.10 [place] [facility] [id number] [address] 2021-04-21 2021-04-21 Outpatient Ryan WALLER [facility] [id number] Univers 10:40:00 10:40:00 THUY cagle [facility] 2021-04-21 2021-04-21 Letter Sridhar [facility] 1.2.840.114 [id number] Univers 00:00:00 00:00:00 (Out) Thuy Gupta 350.1.13.10 [place]2.[place] [facility] [id number] [address] 2021-04-05 2021-04-05 [facility] [id number] Univers 11:20:00 11:20:00 THUY ity of [facility] 2021-03-31 2021-03-31 Emergency [facility] 1.2.840.114 [id number] Univers 16:02:00 21:18:00 Keira Peralta 350.1.13.10 ity of [place]2.[place] [id number] [facility] [address] [place] 2021-03-17 2021-03-17 Telephone Lien Cee [facility] 1.2.840.114 [id number] Univers 00:00:00 00:00:00 Alonso 350.1.13.10 [place]7.2.[place] [facility] [id number] [facility] [address] [place] 2021-03-08 2021-03-08 Office Lien Cee [facility] 1.2.840.114 [id number] Univers 10:58:33 11:51:15 Visit Alonso 350.1.13.10 [place].2.[place] [facility] [id number] [address] 2021-03-08 2021-03-08 Outpatient R LIEN CEE [facility] [id number] Univers 11:20:00 11:20:00 ity of [facility] 2021-02-22 2021-02-22 Outpatient R HARPER [facility] [id number] Univers 10:45:00 11:45:47 PROMISE bairdy [facility] 2021-02-22 2021-02-22 Ancillary Deniz Hines [facility] 1.2. 840.114 [id number] Univers 10:40:09 11:45:47 Visit Promise Saleem 350.1.13.10 ity of [place] 4.2.7.2.686 [place] [facility] [id number] [address] 2021-02-01 2021-02-01 Office [facility] 1.2.483.964 [id number] Univers 10:23:45 11:20:58 Visit Madi SANTAMARIA 350.1.13.10 ity of [facility] 4.2.7.2.686 [facility] [place] [facility] AT [id number] Nh dical VICTORY 198 [facility] 2021-02-01 2021-02-01 Outpatient R LONI [facility] [id number] Univers 10:40:00 10:40:00 MADI briekamini [facility] 2021-01-28 2021-01-28 Office [facility] 1.2.840.114 [id number] Univers 09:43:18 09:58:18 Visit [facility] 350.1.13.10 it y of Surgical 4.2.7.2.686 [place] as Specialti [id number] Nh dical es 198 [facility] 2021-01-28 2021-01-28 [facility] [id number] Univers 09:45:00 09:45:00 AUGUSTINE cagle [facility] 2021-01-28 2021-01-28 Letter [facility] 1.2.840.114 [id number] Univers 00:00:00 00:00:00 (Out) [facility] 350.1.13.10 it y of Surgical 4.2.7.2.686 [place] Specialti [id number] Nh dicoleg es 198 [facility] 2021-01-13 2021-01-13 Outpatient [facility] [id number] Univers 10:36:15 23:59:00 PROMISE cagle [facility] 2021-01-13 2021-01-13 [facility] 1.2.840.114 [id number] Univers 10:36:15 23:59:00 Encounter Promise Peralta 350.1.13.10 itkamini [facility] 4.2.7.2.686 [facility] [id number] [facility] [address] [place] 2021-01-13 2021-01-13 Outpatient [facility] [id number] Univers 00:00:00 00:00:00 PROMISE cagle [facility] 2021-01-13 2021-01-13 Orders Doctor JOHNSON 1.2.840.114 [id number] Univers 00:00:00 00:00:00 Only Unassigned, ANDRE 350.1.13.10 ity of [place] [facility] 4.2.7.2.686 Dong as [id number] [facility] 009 Branch 2021-01-03 2021-01-03 Outpatient [facility] [id number] Univers 00:00:00 00:00:00 PROMISE itkamini [facility] 2020-12-24 2020-12-24 Outpatient [facility] [id number] Univers 08:44:09 23:59:00 [facility] 2020-12-24 2020-12-24 Outpatient [facility] [id number] Univers 08:44:09 23:59:00 [facility] 2020-12-24 2020-12-24 [facility] 1.2.840.114 [id number] Univers 08:44:09 23:59:00 Encounter [facility] 350.1.13.10 ity of Surgical 4.2.7.2.686 [place] as Specialti [id number] Nh dical es 809 [facility] 2020-12-24 2020-12-24 Office [place] 1.2.580.263 [id number] Univers 08:30:48 09:19:56 Visit [facility] 350.1.13.10 it y of Surgical 4.2.7.2.686 [place] as Specialti [id number] Me dical es 198 [facility] 2020-12-24 2020-12-24 Letter [facility] 1.2.840.114 [id number] Univers 00:00:00 00:00:00 (Out) [facility] 350.1.13.10 it y of Surgical 4.2.7.2.686 [place] as Specialti [id number] Nh dical es 198 [facility] 2020-12-14 2020-12-14 Office Lien Cee [facility] 1.2.840.114 [id number] Univers 09:10:37 09:51:05 Visit Alonso 350.1.13.10 it y [place]2.7.2.686 [place] [facility] [id number] [facility] 225 Branch 2020-12-14 2020-12-14 Outpatient R LIEN CEE [facility] [id number] Univers 09:40:00 09:40:00 ity of [facility] 2020-11-17 2020-11-17 Telephone Lien Cee [facility] 1.2.840.114 [id number] Univers 00:00:00 00:00:00 Alonso 350.1.13.10 it y of [place] 4[place]2.7.2.686 [place] [facility] [id number] [address] 2020-11-16 2020-11-16 Billing Lien Cee [facility] 1.2.840.114 [id number] Univers 17:00:00 17:15:00 Encounter Alonso 350.1.13.10 ity of [place] 4[place]2.7.2.686 [place] [facility] [id number] [address] 2020-11-16 2020-11-16 Office Lien Cee [facility] 1.2.840.114 [id number] Univers 15:35:35 16:31:31 Visit Alonso 350.1.13.10 it y of [place] 4[place]2.7.2.686 [place] [facility] [id number] [address] 2020-11-16 2020-11-16 Outpatient R LIEN CEE [facility] [id number] Univers 15:40:00 15:40:00 ity of [facility] 2020-11-16 2020-11-16 Orders Doctor ALEX 1.2.840.114 [id number] Univers 00:00:00 00:00:00 Only Unassigned, ANDRE 350.1.13.10 ity of [place] [facility] 4.2.7.2.686 Dong as [id number] [place] [address] Branch 2019-05-23 2019-05-23 Telephone [place] 1.2.840.11 [id number] Univers 00:00:00 00:00:00 Elisa Weems 350.1.13.10 ity of [place]2.7.2.686 [place] [facility] [id number] [facility] [address] [place] 2019-05-12 2019-05-12 Office [place] 1.2.840.114 [id number] [facility] 10:07:34 11:01:28 Visit Elisa Weems 350.1.13.10 ity of Pediatric 4.2.7.2.686 [facility] [id number] [place] [address] Branch 2019-05-12 2019-05-12 [facility] 1.2.840.114 [id number] [facility] 00:00:00 00:00:00 (Out) Elisa Weems 350.1.13.10 ity of Pediatric 4.2.7.2.686 [facility] [id number] [place] [address] Branch Results This patient has no known results.
[2023-07-10] MEDS ORDERED: HYDROCODONE/APAP 5/325 MG TAB ONE (09:35)
--- NOTE | 2023-07-10 09:41 | RAD REPORT ---
EXAM DESCRIPTION: Chad Single View07/10/2023 9:36 am CLINICAL HISTORY: Cough COMPARISON: July 07, 2023 FINDINGS: The lungs appear clear of acute infiltrate. The heart is normal size IMPRESSION: No acute abnormalities displayed
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
== END 2023-07-10 10:17 | disposition home or self-care (01) ==
LOC: ER 08:41
DX: S02.40DA Maxillary fracture, left side, initial encounter for closed fracture (principal); S02.32XA Fracture of orbital floor, left side, initial encounter for closed fracture
CPT/HCPCS: 70486; 71045; 76377

== ENCOUNTER 2023-12-19 12:39 | Emergency (ER) | payer OTHER ==
--- OUTSIDE RECORDS SUMMARY | 2023-12-19 12:43 | XMS REPORT | Continuity of Care Document ---
Author Name Unknown Address [address] [place] [address] [facility] thconnect Address [address] [place] [address] Care Team Providers Care Break Off Worker Name Role Phone LIEN CEE Primary Care Physician Unavailab LLUVIA Gutierrez Attending Clinician Unavailable Lluvia Samayoa MD Attending Clinician [phone] Doctor Unassigned, [place] Attending Clinician U YARED Franklin Attending Clinician Unavailable HORTENSIA PAL Attending Clinician Unavailab Hortensia Kumari PA-C Attending Clinician [phone] LIEN CEE Attending Clinician Unavailable Nurse, Dewey Beverly Attending Clinician Unavailable Lien Cee MD Attending Clinician [phone] BRYAAN NARVAEZ Attending Clinician Unavailable Brayan Narvaez DO Attending Clinician [phone] Thuy Waller MD Attending Clinician [phone] THUY WALLER Attending Clinician Unavail able Keira Richardson DO Attending Clinician [phone] PROMISE SALEEM Attending Clinician UnavailDeniz Del Rio OT Attending Clinician Unava Promise Lopez MD Attending Clinician [phone] Madi Ivey MD Attending Clinician + MADI IVEY Attending Clinician Unav Augustine Escudero S Attending Clinician AUGUSTINE KAYE S Attending Clinician Unavailable Elisa Mejia MD Attending Clinician [phone] PROMISE SALEEM Admitting Clinician Unavailabl e Payers Payer Name Policy Type Policy Number Effective Date Expirati on Date Source FORMERLY [facility] [id number] 2017 00:00:00 [place] [id number] 2023 00:00:00 Problems Condition Name Condition Details Condition Category Status Onset Date Resolution Date Last Treatment Date Treating Clinician Comments Source Right wrist pain Right wrist pain Disease Active 02-22 00:00: 00 [facility] Decreased range of motion of right wrist Decreased range of motion of right wrist Disease Active 02-22 00:00: 00 [facility] Pain of right hand Pain of right hand Disease Active 02-22 00:00: 00 [facility] 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 of 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 Disease Active 02-22 00:00: 00 [facility] Allergies, Adverse Reactions, Alerts Allergy Name Allergy Type Status Severity Reaction(s) Onset Date Inactive Date Treating Clinician Comments Source Cephalex in Propensi ty to adverse reaction s Active Hives 01-08 00:00: 00 [facility] CEPHALEX IN DRUG INGREDI Active Hives 01-08 00:00: 00 [facility] Social History Social Habit Start Date Stop Date Quantity Comments Source Exposure to SARS-CoV-2 (event) Not sure [facility] Tobacco use and exposure 2018-01-08 00:00:00 2018-01-08 00:00:00 Smokeless tobacco non-user [facility] Sex Assigned At 2005 00:00:00 2005 00:00:00 [facility] Smoking Status Start Date Stop Date Source Never smoked tobacco [facility] Medications Ordered Medication Name Filled Medication Name Start Date Stop Date Current Medication? Ordering Clinician Indication Dosage Frequency Signature (SIG) Comments Components Source ondansetron 4 mg disintegrat ing tablet 308 00:00: 00 Yes [id number] 4mg Take 1 tablet by mouth every 8 (eight) hours as needed for Nausea and Vomiting (N/V). [facility] FLUoxetine 20 mg capsule 8- 00:00: 00 Yes [id number] 20mg Take 1 capsule by mouth daily. [facility] FLUoxetine 10 mg capsule 04-21 00:00: 00 Yes [id number] 10mg Take 1 capsule by mouth daily. [facility] hydrOXYzine 25 mg tablet 04-21 00:00: 00 Yes [id number] 25mg Take 1 tablet by mouth every 8 (eight) hours as needed for Anxiety. [facility] FLUoxetine 20 mg capsule 6- 00:00: 00 Yes [id number] 20mg Take 1 capsule by mouth daily. [facility] omeprazole 20 mg capsule 11-19 00:00: 00 Yes [id number] 20mg Take 1 capsule by mouth daily. [facility] Vital Signs Vital Name Observation Time Observation Value Comments S batshevaalyssa Systolic blood pressure 2021-12-27 19:33:00 118 mm[Hg] [facility] Diastolic blood pressure 2021-12-27 19:33:00 77 mm[Hg] [facility] Heart rate 2021-12-27 19:33:00 93 /min [facility] Respiratory rate 2021-12-27 19:33:00 16 /min [facility] Body weight 2021-12-27 19:33:00 39.179 kg [facility] Procedures Procedure Date / Time Performed Performing Clinician Source [employer] 2023-02-10 05:01:00 Doc tor Unassigned, [place] [facility] Encounters Start Date/Time End Date/Time Encounter Type Admission Type Attending Clinicians Care Facility Care Department Encounter ID Source 2021-07-18 08:31:39 Emergency [facility] [id number] [facility] 2023-04-03 14:00:00 2023-04-03 14:00:00 Outpatient LLUVIA DONOHUE [facility] [id number] [facility] 2023-03-23 14:00:00 2023-03-23 14:00:00 Outpatient LLUVIA DONOHUE [facility] [id number] [facility] 2023-03-23 00:00:00 2023-03-23 00:00:00 Letter (Out) Lluvia Samayoa [facility] 1.840.114 350.1.13.10 4.2.7.2.686 [id number] [facility] 2023-02-10 00:00:00 2023-02-10 00:00:00 Orders Only Doctor Unassigned, [place] [facility] 1.840.114 350.1.13.10 4.2.7.2.686 [id number] [facility] 2022-01-10 13:00:00 2022-01-10 13:00:00 Outpatient YARED CAPPS [facility] [id number] [facility] 2021-12-27 14:30:00 2021-12-27 15:03:18 Outpatient HORTENSIA ESPARZA [facility] [id number] [facility] 2021-12-27 14:30:00 2021-12-27 15:03:18 Office Visit Hortensia Pal [facility] 1.840.114 350.1.13.10 4.2.7.2.686 [id number] [facility] 2021-12-27 14:30:00 2021-12-27 15:03:18 Outpatient HORTENSIA ESPARZA [facility] [id number] [facility] 2021-12-14 08:40:00 2021-12-14 08:53:05 Outpatient LIEN DHILLON 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 [id number] [facility] 2021-12-13 09:50:00 2021-12-13 10:37:19 Outpatient HORTENSIA ESPARZA [facility] [id number] [facility] 2021-12-13 08:10:00 2021-12-13 08:10:00 Outpatient HORTENSIA ESPARZA [facility] [id number] [facility] 2021-12-13 00:00:00 2021-12-13 00:00:00 Orders Only Doctor Unassigned, [place] [facility] 1..840.114 350.1.13.10 4.2.7.2.686 [id number] [facility] 2021-11-22 09:12:00 2021-11-22 09:48:00 Emergency X BRAYAN NARVAEZ [facility] ERT [id number] [facility] 2021-11-22 09:12:00 2021-11-22 09:48:00 Emergency Brayan Narvaez [facility] 1..840.114 350.1.13.10 4.2.7.2.686 [id number] [facility] 2021-05-30 15:50:00 2021-05-30 15:50:00 Outpatient HORTENSIA ESPARZA [facility] [id number] [facility] 2021-04-21 11:06:47 2021-04-21 11:56:04 Office Visit Thuy Waller [facility] 1.2.840.114 350.1.13.10 4.2.7.2.686 [id number] [facility] 2021-04-21 10:40:00 2021-04-21 10:40:00 Outpatient THUY HUERTA [facility] [id number] [facility] 2021-04-21 00:00:00 2021-04-21 00:00:00 Letter (Out) Thuy Waller [facility] 1.2.840.114 350.1.13.10 4.2.7.2.686 [id number] [facility] 2021-04-05 11:20:00 2021-04-05 11:20:00 Outpatient THUY HUERTA [facility] [id number] [facility] 2021-03-31 16:02:00 2021-03-31 21:18:00 Emergency Keira Richardson [facility] 1.2.840.114 350.1.13.10 4.2.7.2.686 [id number] [facility] 2021-03-17 00:00:00 2021-03-17 00:00:00 Telephone Lien Cee [facility] 1.2.840.114 350.1.13.10 4.2.7.2.686 [id number] [facility] 2021-03-08 10:58:33 2021-03-08 11:51:15 Office Visit Lien Cee [facility] 1.2.840.114 350.1.13.10 4.2.7.2.686 [id number] [facility] 2021-03-08 11:20:00 2021-03-08 11:20:00 Outpatient R LIEN CEE [facility] [id number] [facility] 2021-02-22 10:45:00 2021-02-22 11:45:47 Outpatient R PROMISE SALEEM [facility] [id number] [facility] 2021-02-22 10:40:09 2021-02-22 11:45:47 Ancillary Visit Deniz Hines [facility] Joseluis [facility] 1..840.114 350.1.13.10 4.2.7.2.686 [id number] [facility] 2021-02-01 10:23:45 2021-02-01 11:20:58 Office Visit Madi Ivey [facility] 1..840.114 350.1.13.10 4.2.7.2.686 [id number] [facility] 2021-02-01 10:40:00 2021-02-01 10:40:00 Outpatient MADI BURLESON [facility] [id number] [facility] 2021-01-28 09:43:18 2021-01-28 09:58:18 [facility] [place] 1..840.114 350.1.13.10 4.2.7.2.686 [id number] [facility] 2021-01-28 09:45:00 2021-01-28 09:45:00 Outpatient R AUGUSTINE KAYE [facility] [id number] [facility] 2021-01-28 00:00:00 2021-01-28 00:00:00 [facility] (Out[facility] [place] 1..840.114 350.1.13.10 4.2.7.2.686 [id number] [facility] 2021-01-13 10:36:15 2021-01-13 23:59:00 Outpatient R PROMISE SALEEM [facility] [id number] [facility] 2021-01-13 10:36:15 2021-01-13 23:59:00 Hospital Encounter Promise Saleem [facility] 1..114 350.1.13.10 4.2.7.2.686 [id number] [facility] 2021-01-13 00:00:00 2021-01-13 00:00:00 Outpatient R PROMISE SALEEM [facility] [id number] [facility] 2021-01-13 00:00:00 2021-01-13 00:00:00 Orders Only Doctor Unassigned, [place] [facility] 1..114 350.1.13.10 4.2.7.2.686 [id number] [facility] 2021-01-03 00:00:00 2021-01-03 00:00:00 Outpatient R PROMISE SALEEM [facility] [id number] [facility] 2020-12-24 08:44:09 2020-12-24 23:59:00 Outpatient R PROMISE SALEEM [facility] [id number] [facility] 2020-12-24 08:44:09 2020-12-24 23:59:00 Outpatient SALEEM PROMIES [facility] [id number] [facility] 2020-12-24 08:44:09 2020-12-24 23:59:00 Hospital Encounter [facility] 1.284.114 350.1.13.10 4.2.7.2.686 [id number] [facility] 2020-12-24 08:30:48 2020-12-24 09:19:56 Office Visit [facility] Saleem [facility] 1.2840.114 350.1.13.10 4.2.7.2.686 [id number] [facility] 2020-12-24 00:00:00 2020-12-24 00:00:00 Letter (Out) Augustine Kaye [facility] lola Yang 1.2.840.114 350.1.13.10 4.2.7.2.686 [id number] [facility] 2020-12-14 09:10:37 2020-12-14 09:51:05 Office Visit Jaye, [facility] 1.2.840.114 350.1.13.10 4.2.7.2.686 [id number] [facility] 2020-12-14 09:40:00 2020-12-14 09:40:00 Outpatient R LIEN CEE [facility] [id number] [facility] 2020-11-17 00:00:00 2020-11-17 00:00:00 Telephone Jaye [facility] 1.2.840.114 350.1.13.10 4.2.7.2.686 [id number] [facility] 2020-11-16 17:00:00 2020-11-16 17:15:00 Billing Encounter JayeLien garcia [facility] 1.2.840.114 350.1.13.10 4.2.7.2.686 [id number] [facility] 2020-11-16 15:35:35 2020-11-16 16:31:31 Office Visit JayeLien garcia [facility] 1.2.840.114 350.1.13.10 4.2.7.2.686 [id number] [facility] 2020-11-16 15:40:00 2020-11-16 15:40:00 Outpatient R LIEN CEE [facility] [id number] [facility] 2020-11-16 00:00:00 2020-11-16 00:00:00 Orders Only Doctor Unassigned, [place] [facility] 1.2.840.114 350.1.13.10 4.2.7.2.686 [id number] [facility] 2019-05-23 00:00:00 2019-05-23 00:00:00 [address] [facility] 1.2.840.114 350.1.13.10 4.2.7.2.686 [id number] [facility] 2019-05-12 10:07:34 2019-05-12 11:01:28 Office Visit Gen Weems [facility] 1.2.840.114 350.1.13.10 4.2.7.2.686 [id number] [facility] 2019-05-12 00:00:00 2019-05-12 00:00:00 Letter (Out) Gen Weems [facility] 1.2.840.114 350.1.13.10 4.2.7.2.686 [id number] [facility]
[2023-12-19] MEDS ORDERED: IBUPROFEN 200 MG TAB PO ONE (12:59)
[2023-12-19 13:29] LABS: SARS-CoV-2 Antigen CONTROL BLUE LINE VIS/BG OK; SARS-CoV-2 Antigen Rapid Res Negative (Negative)
--- NOTE | 2023-12-19 13:58 | EDPHYS ---
Physician Documentation [facility] Name: Jens Renteria Jr Age: 18 yrs Sex: Male : 2005 Arrival Date: 12/19/2023 Time: 12:39 Bed 12 Private MD: ED Physician Chris Mayen HPI: 12/18 14:10 This 18 yrs old Male presents to ER via Ambulatory with complaints of Cold ms3 Symptoms. 14:10 18-year-old male with no past medical history presents to the emergency department for ms3 5 days of bodyaches, fevers, chills, bilateral ear pain, nausea, vomiting. Patient denies any alleviating or inciting factors. Historical: - Allergies: 12:53 Keflex; mb9 - Home Meds: 12:53 None [Active]; mb9 - PMHx: 12:53 None; mb9 - PSHx: 12:53 None; mb9 - Immunization history:: Adult Immunizations up to date. - Infectious Disease History:: Denies. - Social history:: Smoking status: Patient denies any tobacco usage or history of. ROS: 14:10 Neck: Negative for injury, pain, and swelling, Cardiovascular: Negative for chest pain, ms3 and palpitations. Respiratory: Negative for shortness of breath, cough, wheezing, and pleuritic chest pain, Abdomen/GI: Negative for abdominal pain, nausea, vomiting, diarrhea, and constipation, MS/Extremity: Negative for injury and deformity, Skin: Negative for injury, rash, and discoloration, 14:10 Constitutional: Positive for body aches, chills, fever, poor PO intake, 14:10 All other systems are negative, Exam: 14:10 Constitutional: This is a well developed, well nourished patient who is awake, alert, ms3 and in no acute distress. Head/Face: Normocephalic, atraumatic. Cardiovascular: Regular rate and rhythm with a normal S1 and S2. No gallops, murmurs, or rubs. Normal PMI, no JVD. No pulse deficits. Respiratory: Lungs have equal breath sounds bilaterally, clear to auscultation and percussion. No rales, rhonchi or wheezes noted. No increased work of breathing, no retractions or nasal flaring. Abdomen/GI: Soft, non-tender, with normal bowel sounds. No distension or tympany. No guarding or rebound. No evidence of tenderness throughout. Skin: Warm, dry with normal turgor. Normal color with no rashes, no lesions, and no evidence of cellulitis. Vital Signs: 12:53 BP 118 / 72; Pulse 88; Resp 16; Temp 98.8(O); Pulse Ox 100% ; Weight 45.36 kg; Height 5 mb9 ft. 3 in. ; 14:13 BP 109 / 62; Pulse 90; Resp 17; Temp 97.8; Pulse Ox 100% ; ap3 12:53 Body Mass Index 17.71 (45.36 kg, 160.02 cm) mb9 MDM: 12:53 Patient medically screened. ms3 14:10 Differential diagnosis: flu, URI, COVID. Data reviewed: vital signs, nurses notes, lab ms3 test result(s), and as a result, I will discharge patient. ED course: Discussed labs with patient. Patient to follow-up with primary care physician 2 to 3 days. Patient understands and agrees with plan. All questions were answered. Return precautions discussed include worsening symptoms, or any other concerns. On reevaluation patient is alert and oriented x 4, no apparent distress, nontoxic-appearing, ambulatory emergency room, speaking full sentences. 04 12:53 Order name: Flu; Complete Time: 13:41 ms3 0403 12:53 Order name: SARS RAPID; Complete Time: 13:41 ms3 Administered Medications: 13:02 Drug: Ibuprofen PO 600 mg PO once Route: PO; mb9 14:13 Follow up: Response: No adverse reaction ap3 Disposition Summary: 12/19/23 13:57 Discharge Ordered Notes: Location: Home ms3 Condition: Stable ms3 Diagnosis - Viral Illness ms3 Followup: ms3 - With: Kahlil Acosta DO - When: 2 - 3 days - Reason: Recheck today's complaints Discharge Instructions: - Discharge Summary Sheet ms3 - Viral Illness, Adult ms3 Forms: - Medication Reconciliation Form ms3 - Thank You Letter ms3 - Antibiotic Education ms3 - Prescription Opioid Use ms3 - Patient Portal Instructions ms3 - Leadership Thank You Letter ms3 Prescriptions: - Nasacort 55 mcg Nasal Aerosol, [place] - spray 2 spray INTRANASAL route daily administer into each nostril; 11.1 ms3 milliliter; Refills: 0, Product Selection Permitted - Claritin 10 mg Oral Tablet - take 1 tablet ORAL route once daily As needed; 30 tablet; Refills: 0, Product ms3 Selection Permitted Signatures: Dispatcher [employer] Chris Rm, DO FOSTER ms3 Kamla Guerrero RN RN mb9 Kirsten Gonzales RN ap3
--- NOTE | 2023-12-19 13:58 | ER ---
Nurse's Notes [facility] Name: Jens Renteria Jr Age: 18 yrs Sex: Male : 2005 Arrival Date: 12/19/2023 Time: 12:39 Bed 12 Private MD: Diagnosis: Viral Illness Presentation: 12/18 12:53 Chief complaint: Patient states: "For the past 5 days, I've had bodyaches, bilateral mb9 ear pain, chills, fever, and N/V.". Coronavirus screen: Vaccine status: Patient reports receiving the 2nd dose of the covid vaccine. Ebola Screen: No symptoms or risks identified at this time. Initial Sepsis Screen: Does the patient meet any 2 criteria? No. Patient's initial sepsis screen is negative. Does the patient have a suspected source of infection? No. Patient's initial sepsis screen is negative. Risk Assessment: Do you want to hurt yourself or someone else? Patient reports no desire to harm self or others. Onset of symptoms was December 19, 2023. 12:53 Acuity: MARY 4 mb9 12:53 Method Of Arrival: Ambulatory mb9 Triage Assessment: 12:54 General: Appears in no apparent distress. Behavior is calm, cooperative. Pain: mb9 Complains of pain in right ear and left ear. EENT: No signs and/or symptoms were reported regarding the EENT system. Neuro: [place]ellar Agitation-Sedation Scale (RASS): 0 - Alert and Calm Level of Consciousness is awake, alert, obeys commands, Oriented to person, place, time, situation, Appropriate for age. Cardiovascular: Patient's skin is warm and dry. Respiratory: Airway is patent Respiratory effort is even, unlabored, Respiratory pattern is regular, symmetrical. GI: Abdomen is flat, non-distended, Reports nausea, vomiting. : No signs and/or symptoms were reported regarding the genitourinary system. Derm: Skin is pink, warm \\T\\ dry. Musculoskeletal: Range of motion: intact in all extremities. Historical: - Allergies: 12:53 Keflex; mb9 - Home Meds: 12:53 None [Active]; mb9 - PMHx: 12:53 None; mb9 - PSHx: 12:53 None; mb9 - Immunization history:: Adult Immunizations up to date. - Infectious Disease History:: Denies. - Social history:: Smoking status: Patient denies any tobacco usage or history of. Screenin:03 [facility] ED Fall Risk Assessment (Adult) History of falling in the last 3 months, mb9 including since admission No falls in past 3 months (0 pts) Confusion or Disorientation No (0 pts) Intoxicated or Sedated No (0 pts) Impaired Gait No (0 pts) Mobility Assist Device Used No (0 pt) Altered Elimination No (0 pt) Score/Fall Risk Level 0 - 2 = Low Risk Oriented to surroundings, Maintained a safe environment, Educated pt \\T\\ family on fall prevention, incl call for assistance when getting out of bed. Abuse screen: Denies threats or abuse. Nutritional screening: No deficits noted. Tuberculosis screening: No symptoms or risk factors identified. Vital Signs: 12:53 BP 118 / 72; Pulse 88; Resp 16; Temp 98.8(O); Pulse Ox 100% ; Weight 45.36 kg; Height 5 mb9 ft. 3 in. ; 14:13 BP 109 / 62; Pulse 90; Resp 17; Temp 97.8; Pulse Ox 100% ; ap3 12:53 Body Mass Index 17.71 (45.36 kg, 160.02 cm) mb9 ED Course: 12:46 Patient arrived in ED. mg5 12:48 Chris Mayen DO is Attending Physician. ms3 12:53 Arm band placed on. mb9 12:54 Triage completed. mb9 13:00 Kamla Guerrero, RN is Primary Nurse. mb9 13:03 Placed in gown. Bed in low position. Call light in reach. Side rails up X 1. Client mb9 placed on continuous cardiac and pulse oximetry monitoring. NIBP monitoring applied. Door closed. Noise minimized. Warm blanket given. 13:03 Provided Education on: press call light if needing anything. mb9 13:03 SARS RAPID Sent. mb9 13:03 Flu Sent. mb9 13:03 No provider procedures requiring assistance completed. mb9 13:56 Kahlil Acosta DO is Referral Physician. ms3 14:13 Patient did not have IV access during this emergency room visit. ap3 Administered Medications: 13:02 Drug: Ibuprofen PO 600 mg PO once Route: PO; mb9 14:13 Follow up: Response: No adverse reaction ap3 Medication: 13:03 VIS not applicable for this client. mb9 Outcome: 13:57 Discharge ordered by MD. ms3 14:13 Discharged to home ambulatory, ap3 14:13 Condition: good 14:13 Discharge instructions given to patient, Instructed on discharge instructions, follow up and referral plans. medication usage, Demonstrated understanding of instructions, follow-up care, medications, Prescriptions given X 2, 14:13 Patient left the ED. ap3 Signatures: Kirsten Gonzales RN RN ap3 Chris Mayen DO DO ms3 Kamla Guerrero RN RN mb9 Allison Waggoner mg5 Corrections: (The following items were deleted from the chart) 12:55 12:53 Chief complaint: Patient states: "For the past 5 days, I've had bodyaches, mb9 chills, fever, and N/V." mb9
[2023-12-19 14:53] VITALS: BP 109/62; TEMP 97.8; O2SAT 100
== END 2023-12-19 14:13 | disposition home or self-care (01) ==
LOC: ER 12:39
DX: B34.9 Viral infection, unspecified (principal); Z11.52 Encounter for screening for COVID-19; Z88.1 Allergy status to other antibiotic agents
CPT/HCPCS: 36415; 87804; 87811

== ENCOUNTER 2024-04-21 14:22 | Emergency (ER) | payer OTHER, SELFPAY ==
--- OUTSIDE RECORDS SUMMARY | 2024-04-21 14:37 | XMS REPORT | Continuity of Care Document ---
Author Name Unknown Address [address] [facility] [address]. [address] [place] [address] [facility] Address [address] [facility]. [address] [place] [address] Care Team Providers Care Travel Assistant Name Role Phone DANIE PEREZ Primary Care Physician DANIE Malcolm Attending Clinician Unavailab DANIE Wilkins Attending Clinician Unavailab TERESA Ghotra Attending Clinician Unavailable 2, [facility] Attending Clinician Unavailable LLUIVA SAMAYOA Attending Clinician Unavailable Lluvia Samayoa MD Attending Clinician [phone] Doctor Unassigned, [place] Attending Clinician U YARED Franklin Attending Clinician Unavailable HORTENSIA PAL Attending Clinician Unavailab Hortensia Kumari PA-C Attending Clinician [phone] LIEN CEE Attending Clinician Unavailable Nurse, Dewey Beverly Attending Clinician Unavailable Lien Cee MD Attending Clinician [phone] BRAYAN NARVAEZ Attending Clinician Unavailable Brayan Narvaez DO Attending Clinician [phone] Thuy Waller MD Attending Clinician [phone] THUY WALLER Attending Clinician Unavail able Keira Richardson DO Attending Clinician [phone] PROMISE SALEEM Attending Clinician Deniz Almanzar OT Attending Clinician Promise Taylor MD Attending Clinician [phone] Madi Ivey MD Attending Clinician + MADI IVEY Attending Clinician Unav Augustine Escudero Attending Clinician [phone] AUGUSTINE KAYE Attending Clinician Unavailable PROMISE SALEEM Attending Clinician UnavailElisa Mccallum MD Attending Clinician [phone]- [phone] PROMISE SALEEM Admitting Clinician Mike aceves Payers Payer Name Policy Type Policy Number Effective Date Expirati on Date Source [facility] [id number] 2017 00:00:00 [place] [id number] 2023 00:00:00 Problems Condition Name Condition Details Condition Category Status Onset Date Resolution Date Last Treatment Date Treating Clinician Comments Source Right wrist pain Right wrist pain Disease Active 02-22 00:00: 00 [facility] Decreased range of motion of right wrist Decreased range of motion of right wrist Disease Active 02-22 00:00: 00 [facility] Pain of right hand Pain of right hand Disease Active 02-22 00:00: 00 [facility] Decreased in home aide strength of right hand Decreased in home aide strength of right hand Disease Active 02-22 00:00: 00 [facility] Allergies, Adverse Reactions, Alerts Allergy Name Allergy Type Status Severity Reaction(s) Onset Date Inactive Date Treating Clinician Comments Source Cephalex in Propensi ty to adverse reaction s Active Hives 01-08 00:00: 00 [facility] CEPHALEX IN DRUG INGREDI Active Hives 01-08 00:00: 00 [facility] Social History Social Habit Start Date Stop Date Quantity Comments Source [facility] Exposure to SARS-CoV-2 (event) Not sure [facility] History of Social function 2020-11-16 00:00:00 2020-11-16 00:00:00 [facility] Tobacco use and exposure 2018-01-08 00:00:00 2018-01-08 00:00:00 Smokeless tobacco non-user [facility] Sex Assigned At 2005 00:00:00 2005 00:00:00 [facility] Smoking Status Start Date Stop Date Source Never smoked tobacco [facility] Medications Ordered Medication Name Filled Medication Name Start Date Stop Date Current Medication? Ordering Clinician Indication Dosage Frequency Signature (SIG) Comments Components Source ergocalcife rol, vitamin d2, (VITAMIN D2) 1,250 mcg (50,000 unit) capsule 12-24 00:00: 00 Yes [id number] Take 1 capsule by mouth weekly. [facility] methylPREDN ISolone (MEDROL, EDUAR,) 4 mg tablets 12-23 00:00: 00 Yes [id number] Take by mouth SEE-INSTRU CTIONS. follow package directions [facility] acetaminoph en 500 mg tablet 12-23 00:00: 00 Yes [id number] 500mg Take 1 tablet by mouth every 6 (six) hours as needed for Pain or Fever. [facility] promethazin e-dextromet horphan 6.25-15 mg/5 mL syrup 12-23 00:00: 00 Yes [id number] 5mL Take 5 mL by mouth 4 (four) times daily as needed for Cough. [facility] doxycycline hyclate 100 mg capsule 12-23 00:00: 00 01-03 04:59 :00 No [id number] 100mg Take 1 capsule by mouth in the morning and 1 capsule in the evening. Do all this for [address] [facility] ondansetron 4 mg disintegrat ing tablet 11-22 00:00: 00 12-23 00:00 :00 No [id number] 4mg Take 1 tablet by mouth every 8 (eight) hours as needed for Nausea and Vomiting (N/V). [facility] FLUoxetine 20 mg capsule 04-21 00:00: 00 12-23 00:00 :00 No [id number] 20mg Take 1 capsule by mouth daily. [facility] FLUoxetine 10 mg capsule 2020-0 8-05 00:00: 00 12-23 00:00 :00 No [id number] 10mg Take 1 capsule by mouth daily. [facility] hydrOXYzine 25 mg tablet 2020-0 8-05 00:00: 00 12-23 00:00 :00 No [id number] 25mg Take 1 tablet by mouth every 8 (eight) hours as needed for Anxiety. [facility] FLUoxetine 20 mg capsule 0 6-22 00:00: 00 12-23 00:00 :00 No [id number] 20mg Take 1 capsule by mouth daily. [facility] omeprazole 20 mg capsule 0 3-05 00:00: 00 12-23 00:00 :00 No [id number] 20mg Take 1 capsule by mouth daily. [facility] Immunizations Ordered Immunization Name Filled Immunization Name Date Status Comments Source Meningococcal Polysaccharide (groups A, C, Y and W-135) conjugate vaccine (MCV4P) 2020-11-16 00:00:00 Completed [facility] Meningococcal B, OMV 2020-11-16 00:00:00 Completed [facility] Meningococcal Polysaccharide (groups A, C, Y and W-135) conjugate vaccine (MCV4P) 2020-11-16 00:00:00 Completed [facility] Meningococcal B, OMV 2020-11-16 00:00:00 Completed [facility] Meningococcal Polysaccharide (groups A, C, Y and W-135) conjugate vaccine (MCV4P) 2020-11-16 00:00:00 Completed [facility] Meningococcal B, OMV 2020-11-16 00:00:00 Completed [facility] Meningococcal Polysaccharide (groups A, C, Y and W-135) conjugate vaccine (MCV4P) 2020-11-16 00:00:00 Completed [facility] Meningococcal B, OMV 2020-11-16 00:00:00 Completed [facility] HPV 2016-03-01 00:00:00 Completed [facility] HPV 2016-03-01 00:00:00 Completed [facility] HPV 2016-03-01 00:00:00 Completed [facility] HPV 2016-03-01 00:00:00 Completed [facility] HPV 2014-11-25 00:00:00 Completed [facility] TDAP 2014-11-25 00:00:00 Completed [facility] Meningococcal Polysaccharide (groups A, C, Y and W-135) conjugate vaccine (MCV4P) 2014-11-25 00:00:00 Completed [facility] HPV 2014-11-25 00:00:00 Completed [facility] TDAP 2014-11-25 00:00:00 Completed [facility] Meningococcal Polysaccharide (groups A, C, Y and W-135) conjugate vaccine (MCV4P) 2014-11-25 00:00:00 Completed [facility] HPV 2014-11-25 00:00:00 Completed [facility] TDAP 2014-11-25 00:00:00 Completed [facility] Meningococcal Polysaccharide (groups A, C, Y and W-135) conjugate vaccine (MCV4P) 2014-11-25 00:00:00 Completed [facility] HPV 2014-11-25 00:00:00 Completed [facility] TDAP 2014-11-25 00:00:00 Completed [facility] Meningococcal Polysaccharide (groups A, C, Y and W-135) conjugate vaccine (MCV4P) 2014-11-25 00:00:00 Completed [facility] DTAP 2007-10-24 00:00:00 Completed [facility] MMR 2007-10-24 00:00:00 Completed [facility] Polio (IPV/OPV) 2007-10-24 00:00:00 Completed [facility] Varicella (varivax)(chicken pox) 2007-10-24 00:00:00 Completed [facility] DTAP 2007-10-24 00:00:00 Completed [facility] MMR 2007-10-24 00:00:00 Completed [facility] Polio (IPV/OPV) 2007-10-24 00:00:00 Completed [facility] Varicella (varivax)(chicken pox) 2007-10-24 00:00:00 Completed [facility] DTAP 2007-10-24 00:00:00 Completed [facility] MMR 2007-10-24 00:00:00 Completed [facility] Polio (IPV/OPV) 2007-10-24 00:00:00 Completed [facility] Varicella (varivax)(chicken pox) 2007-10-24 00:00:00 Completed [facility] DTAP 2007-10-24 00:00:00 Completed [facility] MMR 2007-10-24 00:00:00 Completed [facility] Polio (IPV/OPV) 2007-10-24 00:00:00 Completed [facility] Varicella (varivax)(chicken pox) 2007-10-24 00:00:00 Completed [facility] HEPATITIS A 2006-09-24 00:00:00 Completed [facility] HEPATITIS A 2006-09-24 00:00:00 Completed [facility] HEPATITIS A 2006-09-24 00:00:00 Completed [facility] HEPATITIS A 2006-09-24 00:00:00 Completed [facility] HEPATITIS A 2005-09-26 00:00:00 Completed [facility] HEPATITIS A 2005-09-26 00:00:00 Completed [facility] HEPATITIS A 2005-09-26 00:00:00 Completed [facility] HEPATITIS A 2005-09-26 00:00:00 Completed [facility] DTAP 2005-02-09 00:00:00 Completed [facility] Pneumococcal 7 Conjugate, PCV7 (Prevnar7) 2005-02-09 00:00:00 Completed [facility] Pneumococcal 13 Conjugate, PCV13 (Prevnar 13) 2005-02-09 00:00:00 Completed [facility] DTAP 2005-02-09 00:00:00 Completed [facility] Pneumococcal 7 Conjugate, PCV7 (Prevnar7) 2005-02-09 00:00:00 Completed [facility] Pneumococcal 13 Conjugate, PCV13 (Prevnar 13) 2005-02-09 00:00:00 Completed [facility] Pneumococcal 13 Conjugate, PCV13 (Prevnar 13) 2005-02-09 00:00:00 Completed [facility] Pneumococcal 13 Conjugate, PCV13 (Prevnar 13) 2005-02-09 00:00:00 Completed [facility] HIB 4 Dose Schedule 2004 00:00:00 Completed [facility] MMR 2004 00:00:00 Completed [facility] Varicella (varivax)(chicken pox) 2004 00:00:00 Completed [facility] HIB 4 Dose Schedule 2004 00:00:00 Completed [facility] MMR 2004 00:00:00 Completed [facility] Varicella (varivax)(chicken pox) 2004 00:00:00 Completed [facility] HIB 4 Dose Schedule 2004 00:00:00 Completed [facility] MMR 2004 00:00:00 Completed [facility] Varicella (varivax)(chicken pox) 2004 00:00:00 Completed [facility] HIB 4 Dose Schedule 2004 00:00:00 Completed [facility] MMR 2004 00:00:00 Completed [facility] Varicella (varivax)(chicken pox) 2004 00:00:00 Completed [facility] Pneumococcal 7 Conjugate, PCV7 (Prevnar7) 2004-07-11 00:00:00 Completed [facility] Pneumococcal 13 Conjugate, PCV13 (Prevnar 13) 2004-07-11 00:00:00 Completed [facility] Pneumococcal 7 Conjugate, PCV7 (Prevnar7) 2004-07-11 00:00:00 Completed [facility] Pneumococcal 13 Conjugate, PCV13 (Prevnar 13) 2004-07-11 00:00:00 Completed [facility] Pneumococcal 13 Conjugate, PCV13 (Prevnar 13) 2004-07-11 00:00:00 Completed [facility] Pneumococcal 13 Conjugate, PCV13 (Prevnar 13) 2004-07-11 00:00:00 Completed [facility] HIB 4 Dose Schedule 2004-04-22 00:00:00 Completed [facility] Pediarix (dtap/hep B/ipv) 2004-04-22 00:00:00 Completed [facility] HIB 4 Dose Schedule 2004-04-22 00:00:00 Completed [facility] Pediarix (dtap/hep B/ipv) 2004-04-22 00:00:00 Completed [facility] Pediarix (dtap/hep B/ipv) 2004-02-25 00:00:00 Completed [facility] Pneumococcal 7 Conjugate, PCV7 (Prevnar7) 2004-02-25 00:00:00 Completed [facility] Pneumococcal 13 Conjugate, PCV13 (Prevnar 13) 2004-02-25 00:00:00 Completed [facility] Pediarix (dtap/hep B/ipv) 2004-02-25 00:00:00 Completed [facility] Pneumococcal 7 Conjugate, PCV7 (Prevnar7) 2004-02-25 00:00:00 Completed [facility] Pneumococcal 13 Conjugate, PCV13 (Prevnar 13) 2004-02-25 00:00:00 Completed [facility] Pneumococcal 13 Conjugate, PCV13 (Prevnar 13) 2004-02-25 00:00:00 Completed [facility] Pneumococcal 13 Conjugate, PCV13 (Prevnar 13) 2004-02-25 00:00:00 Completed [facility] HIB 4 Dose Schedule 2004-02-19 00:00:00 Completed [facility] HIB 4 Dose Schedule 2004-02-19 00:00:00 Completed [facility] HIB 4 Dose Schedule 2003 00:00:00 Completed [facility] Pediarix (dtap/hep B/ipv) 2003 00:00:00 Completed [facility] Pneumococcal 7 Conjugate, PCV7 (Prevnar7) 2003 00:00:00 Completed [facility] Pneumococcal 13 Conjugate, PCV13 (Prevnar 13) 2003 00:00:00 Completed [facility] HIB 4 Dose Schedule 2003 00:00:00 Completed [facility] Pediarix (dtap/hep B/ipv) 2003 00:00:00 Completed [facility] Pneumococcal 7 Conjugate, PCV7 (Prevnar7) 2003 00:00:00 Completed [facility] Pneumococcal 13 Conjugate, PCV13 (Prevnar 13) 2003 00:00:00 Completed [facility] Pneumococcal 13 Conjugate, PCV13 (Prevnar 13) 2003 00:00:00 Completed [facility] Pneumococcal 13 Conjugate, PCV13 (Prevnar 13) 2003 00:00:00 Completed [facility] Hep B, Adol or Pedi Dosage 2003 00:00:00 Completed [facility] Hep B, Adol or Pedi Dosage 2003 00:00:00 Completed [facility] DTAP Unknown Completed [facility] HIB 4 Dose Schedule Unknown Completed [facility] HEPATITIS A Unknown Completed [facility] HEPATITIS A Unknown Completed [facility] HPV Unknown Completed [facility] HPV Unknown Completed [facility] MMR Unknown Completed [facility] MMR Unknown Completed [facility] Pneumococcal 13 Conjugate, PCV13 (Prevnar 13) Unknown Completed [facility] Pneumococcal 13 Conjugate, PCV13 (Prevnar 13) Unknown Completed [facility] Pneumococcal 13 Conjugate, PCV13 (Prevnar 13) Unknown Completed [facility] Pneumococcal 13 Conjugate, PCV13 (Prevnar 13) Unknown Completed [facility] Polio (IPV/OPV) Unknown Completed [facility] TDAP Unknown Completed [facility] Varicella (varivax)(chicken pox) Unknown Completed [facility] Varicella (varivax)(chicken pox) Unknown Completed [facility] Meningococcal Polysaccharide (groups A, C, Y and W-135) conjugate vaccine (MCV4P) Unknown Completed [facility] Meningococcal Polysaccharide (groups A, C, Y and W-135) conjugate vaccine (MCV4P) Unknown Completed [facility] Meningococcal B, OMV Unknown Completed [facility] DTAP Unknown Completed [facility] HIB 4 Dose Schedule Unknown Completed [facility] HEPATITIS A Unknown Completed [facility] HEPATITIS A Unknown Completed [facility] HPV Unknown Completed [facility] HPV Unknown Completed [facility] MMR Unknown Completed [facility] MMR Unknown Completed [facility] Pneumococcal 13 Conjugate, PCV13 (Prevnar 13) Unknown Completed [facility] Pneumococcal 13 Conjugate, PCV13 (Prevnar 13) Unknown Completed [facility] Pneumococcal 13 Conjugate, PCV13 (Prevnar 13) Unknown Completed [facility] Pneumococcal 13 Conjugate, PCV13 (Prevnar 13) Unknown Completed [facility] Polio (IPV/OPV) Unknown Completed [facility] TDAP Unknown Completed [facility] Varicella (varivax)(chicken pox) Unknown Completed [facility] Varicella (varivax)(chicken pox) Unknown Completed [facility] Meningococcal Polysaccharide (groups A, C, Y and W-135) conjugate vaccine (MCV4P) Unknown Completed [facility] Meningococcal Polysaccharide (groups A, C, Y and W-135) conjugate vaccine (MCV4P) Unknown Completed [facility] Meningococcal B, OMV Unknown Completed [facility] DTAP Unknown Completed [facility] HIB 4 Dose Schedule Unknown Completed [facility] HEPATITIS A Unknown Completed [facility] HEPATITIS A Unknown Completed [facility] HPV Unknown Completed [facility] HPV Unknown Completed [facility] MMR Unknown Completed [facility] MMR Unknown Completed [facility] Pneumococcal 13 Conjugate, PCV13 (Prevnar 13) Unknown Completed [facility] Pneumococcal 13 Conjugate, PCV13 (Prevnar 13) Unknown Completed [facility] Pneumococcal 13 Conjugate, PCV13 (Prevnar 13) Unknown Completed [facility] Pneumococcal 13 Conjugate, PCV13 (Prevnar 13) Unknown Completed [facility] Polio (IPV/OPV) Unknown Completed [facility] TDAP Unknown Completed [facility] Varicella (varivax)(chicken pox) Unknown Completed [facility] Varicella (varivax)(chicken pox) Unknown Completed [facility] Meningococcal Polysaccharide (groups A, C, Y and W-135) conjugate vaccine (MCV4P) Unknown Completed [facility] Meningococcal Polysaccharide (groups A, C, Y and W-135) conjugate vaccine (MCV4P) Unknown Completed [facility] Meningococcal B, OMV Unknown Completed [facility] DTAP Unknown Completed [facility] HIB 4 Dose Schedule Unknown Completed [facility] HEPATITIS A Unknown Completed [facility] HEPATITIS A Unknown Completed [facility] HPV Unknown Completed [facility] HPV Unknown Completed [facility] MMR Unknown Completed [facility] MMR Unknown Completed [facility] Pneumococcal 13 Conjugate, PCV13 (Prevnar 13) Unknown Completed [facility] Pneumococcal 13 Conjugate, PCV13 (Prevnar 13) Unknown Completed [facility] Pneumococcal 13 Conjugate, PCV13 (Prevnar 13) Unknown Completed [facility] Pneumococcal 13 Conjugate, PCV13 (Prevnar 13) Unknown Completed [facility] Polio (IPV/OPV) Unknown Completed [facility] TDAP Unknown Completed [facility] Varicella (varivax)(chicken pox) Unknown Completed [facility] Varicella (varivax)(chicken pox) Unknown Completed [facility] Meningococcal Polysaccharide (groups A, C, Y and W-135) conjugate vaccine (MCV4P) Unknown Completed [facility] Meningococcal Polysaccharide (groups A, C, Y and W-135) conjugate vaccine (MCV4P) Unknown Completed [facility] Meningococcal B, OMV Unknown Completed [facility] Vital Signs Vital Name Observation Time Observation Value Comments S ource Systolic blood pressure 2023-12-24 17:58:00 116 mm[Hg] [facility] Diastolic blood pressure 2023-12-24 17:58:00 79 mm[Hg] [facility] Heart rate 2023-12-24 17:58:00 90 /min [facility] Body temperature 2023-12-24 17:58:00 37.17 Hina [facility] Respiratory rate 2023-12-24 17:58:00 18 /min [facility] Body height 2023-12-24 17:58:00 160 cm [facility] Body weight 2023-12-24 17:58:00 41.232 kg [facility] BMI 2023-12-24 17:58:00 16.10 kg/m2 [facility] Oxygen saturation in Arterial blood by Pulse oximetry 2023-12-24 17:58:00 97 /min [facility] Systolic blood pressure 2021-12-27 19:33:00 118 mm[Hg] [facility] Diastolic blood pressure 2021-12-27 19:33:00 77 mm[Hg] [facility] Heart rate 2021-12-27 19:33:00 93 /min [facility] Res[facility] rate 2021-12-27 19:33:00 16 /min [facility] Body weight 2021-12-27 19:33:00 39.179 kg [facility] Procedures Procedure Date / Time Performed Performing Clinician Source CBC WITH DIFF 2023-12-24 18:44:00 [facility] GLYCOSYLATED HEMOGLOBIN (A1C) 2023-12-24 18:44:00 Danie Perez [facility] INSURANCE CORRESPONDENCE 2023-02-10 05:01:00 Doc tor Unassigned, [place] [facility] Encounters Start Date/Time End Date/Time Encounter Type Admission Type Attending Clinicians Care Facility Care Department Encounter ID Source 2021-07-18 08:31:39 Emergency [facility] [id number] [facility] 2024-03-24 11:00:00 2024-03-24 11:00:00 Outpatient DANIE KEVIN OGECHUKWU [facility] [id number] [facility] 2024-03-10 13:00:00 2024-03-10 13:00:00 Outpatient TERESA CLAUDIO [facility] [id number] [facility] 2023-12-25 00:00:00 2023-12-25 00:00:00 Telephone Danie Perez [place] [id number] 350.1.13.10 4.2.7.2.[id number] [facility] 2023-12-24 13:45:00 2023-12-24 14:00:00 Medical Assistant Visit 2, Adc Lab Danie Perez [facility] [id number] 350.1.13.10 [id number] [facility] 2023-12-24 13:00:00 2023-12-24 13:29:09 Outpatient R DANIE PEREZ OGECHUKWU [facility] [id number] [facility] 2023-12-24 13:00:00 2023-12-24 13:29:09 Office Visit Danie Perez [facility] [id number] 350.1.13.10 4.2.7.2.[id number] [facility] 2023-04-03 14:00:00 2023-04-03 14:00:00 Outpatient R LLUVIA SAMAYOA [facility] [id number] [facility] 2023-03-23 14:00:00 2023-03-23 14:00:00 Outpatient R LLUVIA SAMAYOA [facility] [id number] [facility] 2023-03-23 00:00:00 2023-03-23 00:00:00 Letter (Out) [facility] [id number] [id number] 4.2.7.2.[id number] [facility] 2023-02-10 00:00:00 2023-02-10 00:00:00 Orders Only Doctor Unassigned, [place] [facility] [id number] 350.1.13.10 4.2.7.2.[id number] [facility] 2022-01-10 13:00:00 2022-01-10 13:00:00 Outpatient R YARED MENDOSA [facility] [id number] [facility] 2021-12-27 14:30:00 2021-12-27 15:03:18 Outpatient R HORTENSIA PAL [facility] [id number] [facility] 2021-12-27 14:30:00 2021-12-27 15:03:18 Office Visit Hortensia Pal [facility] [id number] [id number] 4.2.7.2.[id number] [facility] 2021-12-27 14:30:00 2021-12-27 15:03:18 Outpatient HORTENSIA ESPARZA [facility] [id number] [facility] 2021-12-14 08:40:00 2021-12-14 08:53:05 Outpatient LIEN DHILLON [facility] [id number] [facility] 2021-12-14 08:40:00 2021-12-14 08:53:05 Medical Assistant Visit Nurse, Dewey Cee [facility] [id number] 350.1.13.10 4.2.7.2.[id number] [facility] 2021-12-13 09:50:00 2021-12-13 10:37:19 Outpatient HORTENSIA ESPARZA [facility] [id number] [facility] 2021-12-13 09:50:00 2021-12-13 10:37:19 Outpatient HORTENSIA ESPARZA [facility] [id number] [facility] 2021-12-13 08:10:00 2021-12-13 08:10:00 Outpatient HORTENSIA ESPARZA [facility] [id number] [facility] 2021-12-13 00:00:00 2021-12-13 00:00:00 Orders Only Doctor Unassigned, [place] [facility] 1..840.114 350.1.13.10 4.2.7.2.[id number] [facility] 2021-11-22 09:12:00 2021-11-22 09:48:00 Emergency BRAYAN SOLORZANO [facility] [id number] [facility] 2021-11-22 09:12:00 2021-11-22 09:48:00 Emergency Brayan Narvaez [facility] [id number] 350.1.13.10 4.2.7.2.[id number] [facility] 2021-05-30 15:50:00 2021-05-30 15:50:00 Outpatient HORTENSIA ESPARZA [facility] [id number] [facility] 2021-04-21 11:06:47 2021-04-21 11:56:04 Office Visit Thuy Waller [facility] [id number] 350.1.13.10 4.2.7.2.[id number] [facility] 2021-04-21 10:40:00 2021-04-21 10:40:00 Outpatient THUY HUERTA [facility] [id number] [facility] 2021-04-21 00:00:00 2021-04-21 00:00:00 Letter (Out) Thuy Waller [facility] [id number] 350.1.13.10 4.2.7.2.[id number] [facility] 2021-04-05 11:20:00 2021-04-05 11:20:00 Outpatient THUY HUERTA [facility] [id number] [facility] 2021-03-31 16:02:00 2021-03-31 21:18:00 Emergency Keira Richardson [facility] [id number] 350.1.13.10 4.2.7.2.[id number] [facility] 2021-03-17 00:00:00 2021-03-17 00:00:00 Telephone Lien Cee [facility] 1.2840.114 350.1.13.10 4.2.7.2.[id number] [facility] 2021-03-08 10:58:33 2021-03-08 11:51:15 Office Visit Lien Cee [facility] 1.114 350.1.13.10 4.2.7.2.[id number] [facility] 2021-03-08 11:20:00 2021-03-08 11:20:00 Outpatient R EVANS, LIEN [facility] [id number] [facility] 2021-02-22 10:45:00 2021-02-22 11:45:47 Outpatient PROMISE DE LA TORRE [facility] [id number] [facility] 2021-02-22 10:40:09 2021-02-22 11:45:47 Ancillary Visit Deniz Hines Craig [facility] 1.84.114 350.1.13.10 4.2.7.2.[id number] [facility] 2021-02-01 10:23:45 2021-02-01 11:20:58 Office Visit Madi Ivey [facility] 1.284.114 350.1.13.10 4.2.7.2.[id number] [facility] 2021-02-01 10:40:00 2021-02-01 10:40:00 Outpatient MADI BURLESON [facility] [id number] [facility] 2021-01-28 09:43:18 2021-01-28 09:58:18 Office Visit Augustine Kaye [facility] 1.84.114 350.1.13.10 4.2.7.2.[id number] [facility] 2021-01-28 09:45:00 2021-01-28 09:45:00 Outpatient AUGUSTINE QUEEN [facility] [id number] [facility] 2021-01-28 00:00:00 2021-01-28 00:00:00 Letter (Out) Augustine Kaye [facility] 1.2.840.114 350.1.13.10 4.2.7.2.[id number] [facility] 2021-01-13 10:36:15 2021-01-13 23:59:00 Outpatient PROMISE DE LA TORRE [facility] [id number] [facility] 2021-01-13 10:36:15 2021-01-13 23:59:00 Hospital Encounter Promise Saleem [facility] 1.2.840.114 350.1.13.10 4.2.7.2.[id number] [facility] 2021-01-13 00:00:00 2021-01-13 00:00:00 Outpatient PROMISE DE LA TORRE [facility] [id number] [facility] 2021-01-13 00:00:00 2021-01-13 00:00:00 Orders Only Doctor Unassigned, [place] [facility] 1.2.840.114 350.1.13.10 4.2.7.2.[id number] [facility] 2021-01-03 00:00:00 2021-01-03 00:00:00 Outpatient PROMISE DE LA TORRE CRAIG [facility] [id number] [facility] 2020-12-24 08:44:09 2020-12-24 23:59:00 Outpatient PROMISE DE LA TORRE [facility] [id number] [facility] 2020-12-24 08:44:09 2020-12-24 23:59:00 Outpatient PROMISE SALEEM [facility] [id number] [facility] 2020-12-24 08:44:09 2020-12-24 23:59:00 Hospital Encounter Promise Saleem [facility] Surgical Specialti lola Yang 1.2.840.114 350.1.13.10 4.2.7.2.[id number] [facility] 2020-12-24 08:30:48 2020-12-24 09:19:56 Office Visit Promise Saleem [facility]ti lola Yang 1.2.840.114 350.1.13.10 4.2.7.2.[id number] [facility] 2020-12-24 00:00:00 2020-12-24 00:00:00 Letter (Out) Augustine Kaye [facility] lola Yang 1.2.840.114 350.1.13.10 4.2.7.2.[id number] [facility] 2020-12-14 09:10:37 2020-12-14 09:51:05 Office Visit Lien Cee [facility] 1.2.840.114 350.1.13.10 4.2.7.2.[id number] [facility] 2020-12-14 09:40:00 2020-12-14 09:40:00 Outpatient R LIEN CEE [facility] [id number] [facility] 2020-11-17 00:00:00 2020-11-17 00:00:00 Telephone Lien Cee [facility] 1.2.840.114 350.1.13.10 4.2.7.2.[id number] [facility] 2020-11-16 17:00:00 2020-11-16 17:15:00 Billing Encounter Lien Cee [facility] 1.2.840.114 350.1.13.10 4.2.7.2.[id number] [facility] 2020-11-16 15:35:35 2020-11-16 16:31:31 Office Visit Lien Cee [facility] 1.2.840.114 350.1.13.10 4.2.7.2.[id number] [facility] 2020-11-16 15:40:00 2020-11-16 15:40:00 Outpatient R LIEN CEE [facility] [id number] [facility] 2020-11-16 00:00:00 2020-11-16 00:00:00 Orders Only Doctor Unassigned, [place] [facility] 1.2.840.114 350.1.13.10 4.2.7.2.[id number] [facility] 2019-05-23 00:00:00 2019-05-23 00:00:00 Telephone [facility] 1.2.840.114 350.1.13.10 4.2.7.2.[id number] [facility] 2019-05-12 10:07:34 2019-05-12 11:01:28 Office Visit [facility] 1.2.840.114 350.1.13.10 4.2.7.2.[id number] [facility] 2019-05-12 00:00:00 2019-05-12 00:00:00 Letter (Out) [facility] 1.2.840.114 350.1.13.10 4.2.7.2.[id number] [facility] Results Test Description Test Time Test Comments Results Result Co [facility] 19:30:28* Test Item Value Reference Range Interpretation Comme nts HGB A1C (test code = 4548-4) 5.1 % 4.0-5.7 GUILLERMO (test code = GUILLERMO) Reference RangesNormal: <5.7%Prediabetes: 5.7 - 6.4%Diabetes: > 6.5% Lab Interpretation (test code = 92669-1) Normal [facility] with [id number] 18:57:50* Test Item Value Reference Range Interpretation Comme nts WBC (test code = 6690-2) 12.54 4.20-10.70 H RBC (test code = 789-8) 4.72 4.26-5.52 HGB (test code = 718-7) 14.3 g/dL 12.2-16.4 HCT (test code = 4544-3) 42.0 % 38.4-49.3 MCV (test code = 787-2) 89.0 fL 81.7-95.6 MCH (test code = 785-6) 30.3 pg 26.1-32.7 MCHC (test code = 786-4) 34.0 g/dL 31.2-35.0 RDW-SD (test code = 20642-0) 41.2 fL 38.5-51.6 RDW-CV (test code = 788-0) 12.5 % 12.1-15.4 PLT (test code = 777-3) 404 150-328 H MPV (test code = 01186-0) 8.7 fL 9.8-13.0 L NRBC/100 WBC (test code = 6404308803) 0.0 0.0-10.0 NRBC x10^3 (test code = 7273683780) See_Comment [Automated messa ge] The system which generated this result transmitted reference range: 10*3/?L. The reference range was not used to interpret this result as normal/abnormal. GRAN MAT (NEUT) % (test code = 770-8) 76.4 % IMM GRAN % (test code = 9573115707) 1.00 % LYMPH % (test code = 736-9) 10.9 % MONO % (test code = 5905-5) 9.3 % EOS % (test code = 713-8) 1.9 % BASO % (test code = 706-2) 0.5 % GRAN MAT x10^3(ANC) (test code = 5572854687) 9.58 10*3/uL 1.99-6.95 H IMM GRAN x10^3 (test code = 8868083196) 0.12 10*3/uL 0.00-0.06 H LYMPH x10^3 (test code = 731-0) 1.37 10*3/uL 1.09-3.23 MONO x10^3 (test code = 742-7) 1.17 10*3/uL 0.36-1.02 H EOS x10^3 (test code = 711-2) 0.24 10*3/uL 0.06-0.53 BASO x10^3 (test code = 704-7) 0.06 10*3/uL 0.01-0.09 Lab Interpretation (test code = 12784-2) Abnormal [facility] with [id number] 18:57:50* Test Item Value Reference Range Interpretation Comme nts WBC (test code = 6690-2) 12.54 4.20-10.70 H RBC (test code = 789-8) 4.72 4.26-5.52 HGB (test code = 718-7) 14.3 g/dL 12.2-16.4 HCT (test code = 4544-3) 42.0 % 38.4-49.3 MCV (test code = 787-2) 89.0 fL 81.7-95.6 MCH (test code = 785-6) 30.3 pg 26.1-32.7 MCHC (test code = 786-4) 34.0 g/dL 31.2-35.0 RDW-SD (test code = 61567-8) 41.2 fL 38.5-51.6 RDW-CV (test code = 788-0) 12.5 % 12.1-15.4 PLT (test code = 777-3) 404 150-328 H MPV (test code = 63349-7) 8.7 fL 9.8-13.0 L NRBC/100 WBC (test code = 5291237647) 0.0 0.0-10.0 NRBC x10^3 (test code = 8185871465) See_Comment [Automated messa ge] The system which generated this result transmitted reference range: 10*3/?L. The reference range was not used to interpret this result as normal/abnormal. GRAN MAT (NEUT) % (test code = 770-8) 76.4 % IMM GRAN % (test code = 4556344365) 1.00 % LYMPH % (test code = 736-9) 10.9 % MONO % (test code = 5905-5) 9.3 % EOS % (test code = 713-8) 1.9 % BASO % (test code = 706-2) 0.5 % GRAN MAT x10^3(ANC) (test code = 1927267771) 9.58 10*3/uL 1.99-6.95 H IMM GRAN x10^3 (test code = 4634017076) 0.12 10*3/uL 0.00-0.06 H LYMPH x10^3 (test code = 731-0) 1.37 10*3/uL 1.09-3.23 MONO x10^3 (test code = 742-7) 1.17 10*3/uL 0.36-1.02 H EOS x10^3 (test code = 711-2) 0.24 10*3/uL 0.06-0.53 BASO x10^3 (test code = 704-7) 0.06 10*3/uL 0.01-0.09 Lab Interpretation (test code = 58122-8) Abnormal [facility] Notes Date/Time Note Provider Source 2023-12-24 13:45:00 Images from the original note were not included. Venipuncture collection performed by clean technique on the right anticubitus. Total of 1 attempts were made. Slight pressure and a bandage/dressing were applied to the site(s). The patient experienced no complications. The following specimens were processed according to instructions and sent to [facility] laboratories per lab order on 12/24/2023: LT BLUE SST 3 RED LAV 2 PPT DK GREEN (LiHep) DK GREEN (SodH) BUCK DK BLUE (K2) DK BLUE (S) ACD Blood Culture NIPT/NTD [facility]
[2024-04-21 15:08] LABS: Absolute Eosinophils 0.2 K/uL (0-0.5); Absolute Lymphocytes (CBC) 0.2 K/uL (0.7-4.9); Absolute Monocytes 0.3 K/uL (0.1-1.3); Absolute Neutrophil 5.3 K/uL (1.8-8.0); Basophils % 0.5 % (0-1.3); Eosinophils % 3.9 % (0-4.4); Hematocrit 43.7 % (39.6-49.0); Hemoglobin 14.6 g/dL (13.6-17.9); Lymphocytes % 3.2 % (15.3-44.8); MCH 29.8 pg (27.0-35.0); MCHC 33.6 g/dL (32.0-36.0); MCV 88.8 fL (80-100); MPV 7.5 fL (7.6-11.3); Monocytes % 5.7 % (3.3-12.3); Neutrophils % 86.7 % (41.7-73.7); Platelets 255 thou/uL (152-406); RBC Red Blood Cell Count 4.92 M/uL (4.33-5.43); Red Cell Distribution Width 12.9 % (12.1-15.2)
[2024-04-21 15:22] LABS: PT Prothrombin Time 13.6 SECONDS (9.4-12.5); Protime INR 1.22
[2024-04-21 15:23] LABS: PTT, Activated Partial Thromb 34.4 SECONDS (24.3-36.9)
[2024-04-21 15:24] LABS: ALT/SGPT 56 U/L (16-61); AST/SGOT 88 U/L (15-37); Albumin 4.2 g/dL (3.4-5.0); Albumin/Globulin Ratio 1.1 (1.1-1.8); Alkaline Phosphatase 106 U/L (45-117); Anion Gap 7.6 mEq/L (5.0-15.0); BUN Blood Urea Nitrogen 16 mg/dL (7-18); Bicarbonate 27 mEq/L (21-32); Bilirubin Total 0.3 mg/dL (0.2-1.0); Globulin 3.7 g/dL (2.3-3.5); Glomerular Filtration Rate 95 ml/min (=/>90); Glucose Level 115 mg/dL (74-106); Potassium 3.6 mEq/L (3.5-5.1); Protein, Total 7.9 g/dL (6.4-8.2); Sodium Level 137 mEq/L (136-145)
[2024-04-21 15:25] LABS: Bilirubin Direct < 0.2 mg/dL (0-0.2); Bilirubin Indirect, Calculated 0.1 mg/dL (0.2-0.8)
[2024-04-21 15:29] LABS: Specific Gravity 1.023 (1.005-1.030); Sqamous Epithelial None Seen /HPF (None Seen); Urine Bacteria None Seen /HPF (<20); Urine Bilirubin NEGATIVE (Negative); Urine Blood Negative (Negative); Urine Clarity Clear (Clear); Urine Color Light-Yellow (Yellow); Urine Culture Reflex Order NOT NEEDED; Urine Glucose 1+ (Negative); Urine Ketones TRACE (Negative); Urine Microscopic Reflex YN ORDER UMIC; Urine Mucus Slight /HPF (None Seen); Urine Nitrite NEGATIVE (Negative); Urine Protein NEGATIVE (Negative); Urine RBC <5 /HPF (None Seen); Urine Urobilinogen Normal (Normal); Urine WBC <5 /HPF (<5); Urine pH 5.5 (5.0-7.0)
[2024-04-21 15:39] LABS: Barbiturates NEGATIVE (NEGATIVE); Benzodiazepines NEGATIVE (NEGATIVE); Cocaine POSITIVE (NEGATIVE); METHAMPHETAM NEGATIVE (NEGATIVE); Methadone NEGATIVE (NEGATIVE); Opiates NEGATIVE (NEGATIVE); Phencyclidine NEGATIVE (NEGATIVE); THC Cannibis POSITIVE (NEGATIVE)
[2024-04-21] MEDS ORDERED: NA CHLORIDE 0.9% 1,000 ML ONE (15:57)
[2024-04-21] MEDS ORDERED: ONDANSETRON 4 MG/2 ML VIAL ONE (15:57)
[2024-04-21] MEDS ORDERED: IBUPROFEN 400 MG TAB ONE (16:05)
[2024-04-21] MEDS ORDERED: IBUPROFEN 200 MG TAB PO ONE (16:05)
[2024-04-21 16:40] LABS: SARS-CoV-2 Antigen CONTROL BLUE LINE VIS/BG OK; SARS-CoV-2 Antigen Rapid Res Positive (Negative)
--- NOTE | 2024-04-21 16:44 | EDPHYS ---
Physician Documentation [facility] Name: Jens Renteria Jr Age: 18 yrs Sex: Male : 2005 Arrival Date: 04/21/2024 Time: 14:22 Bed 5 Private MD: ED Physician Liana Sun HPI: 04/21 17:13 This 18 yrs old Male presents to ER via Ambulatory with complaints of kb Vomiting, General Weakness. 17:14 Patient is a 18-year-old male who presents for vomiting, generalized weakness, body kb aches, decreased appetite that started 1 week ago. States he also overdosed twice last week accidentally. States he takes Percocets recreationally and accidentally took too much. Did not require EMS, ER visit, Narcan. States " I just woke up later." . Historical: - Allergies: 14:32 Keflex; hb - Home Meds: 14:32 None [Active]; hb - PMHx: 14:32 None; hb - PSHx: 14:32 None; hb - Immunization history:: Adult Immunizations up to date. - Infectious Disease History:: Denies. - Social history:: Smoking status: Patient reports the use of cigarette tobacco products, smokes two packs cigarettes per day. Patient uses street drugs, opioids . ROS: 17:12 Constitutional: As per HPI kb Exam: 17:12 Constitutional: This is a well developed, well nourished patient who is awake, alert, kb and in no acute distress. Head/Face: Normocephalic, atraumatic. ENT: Moist Mucous membranes Cardiovascular: Regular rate Respiratory: Respirations even and unlabored. No increased work of breathing. Talking in full sentences Abdomen/GI: Soft, non-tender. No distention Skin: Warm, dry with normal turgor. Normal color. MS/ Extremity: Pulses equal, no cyanosis. Neurovascular intact. Full, normal range of motion. Neuro: Awake and alert, GCS 15, oriented to person, place, time, and situation. Moves all extremities. Normal gait. 17:54 ECG was reviewed by the Attending Physician. kb Vital Signs: 14:30 BP 132 / 89; Pulse 107; Resp 16; Temp 97.7; Pulse Ox 100% on R/A; Weight 39.46 kg; hb Height 5 ft. 2 in. ; Pain 7/10; 16:05 BP 124 / 75; Pulse 88; Resp 22; Temp 101.9(O); Pulse Ox 100% on R/A; aa5 16:46 BP 124 / 75; Pulse 100; Resp 23; Temp 99.8; Pulse Ox 100% ; bp 14:30 Body Mass Index 15.91 (39.46 kg, 157.48 cm) hb 14:30 Pain Scale: Adult hb 16:05 CHIROPRACTIC NEUROLOGIST notified of increased temperature. aa5 MDM: 14:28 Patient medically screened. kb 17:13 Differential diagnosis: viral gastroenteritis, Dehydration, abnormal electrolytes, flu, kb COVID. Data reviewed: vital signs, nurses notes. Counseling: I had a detailed discussion with the patient and/or guardian regarding the historical points, exam findings, and any diagnostic results supporting the discharge/admit diagnosis, lab results, the need for outpatient follow up, a family practitioner, to return to the emergency department if symptoms worsen or persist or if there are any questions or concerns that arise at home. 17:15 I considered the following discharge prescriptions or medication management in the emergency department I discussed and recommended Over The Counter medications, Antibiotics: At this time antibiotics are not recommended, Antivirals: At this time, antivirals are not recommended. ED course: Educated patient on danger of illicit drug use and recommended quitting.. 04/21 14:32 Order name: Acetaminophen; Complete Time: 15:27 kb 04/21 14:32 Order name: Basic Metabolic Panel; Complete Time: 15:27 kb 04/21 14:32 Order name: CBC with Diff; Complete Time: 16:48 kb 04/21 14:32 Order name: ETOH Level; Complete Time: 15:27 kb 04/21 14:32 Order name: Hepatic Function; Complete Time: 15:27 kb 04/21 14:32 Order name: PT-INR; Complete Time: 15:27 kb 04/21 14:32 Order name: Ptt, Activated; Complete Time: 15:27 kb 04/21 14:32 Order name: Salicylate; Complete Time: 15:32 kb 04/21 14:32 Order name: Urinalysis w/ reflexes; Complete Time: 15:32 kb 04/21 14:32 Order name: Urine Drug Screen; Complete Time: 15:41 kb 04/21 16:08 Order name: SARS-COV-2 Antigen Rapid; Complete Time: 16:42 kb 04/21 16:08 Order name: Flu; Complete Time: 16:45 kb 04/21 16:47 Order name: CBC Smear Scan; Complete Time: 16:48 EDMS 04/21 14:32 Order name: EKG; Complete Time: 14:33 kb 04/21 14:32 Order name: EKG - Nurse/Tech; Complete Time: 14:58 kb 04/21 14:32 Order name: IV Saline Lock; Complete Time: 14:58 kb 04/21 14:32 Order name: Labs collected and sent; Complete Time: 14:58 kb 04/21 14:32 Order name: Suicide Screening ([place]); Complete Time: 15:04 kb EC:54 Rate is 102 beats/min. Rhythm is regular. QRS [place] is Normal. DE interval is normal at kb 136 msec. QRS interval is normal at 86 msec. QT interval is normal at 437 msec. Administered Medications: 16:05 Drug: NS 0.9% IV 1000 ml IV at 1000 ml once Route: IV; Rate: 1000 ml; Site: right aa5 antecubital; 16:49 Follow up: IV Status: Completed infusion; IV Intake: 1000ml bp 16:05 Drug: Ondansetron IVP 4 mg IVP once; over 2 minutes Route: IVP; Site: right antecubital;aa5 16:46 Follow up: Response: No adverse reaction bp 16:09 Drug: Ibuprofen PO 600 mg PO once Route: PO; aa5 16:45 Follow up: Response: No adverse reaction bp Disposition Summary: 04/21/24 16:43 Discharge Ordered Notes: Location: Home kb Condition: Stable kb Diagnosis - SARS-associated coronavirus as the cause of diseases classified elsewhere kb Followup: kb - With: Emergency Department - When: As needed - Reason: Worsening of condition Followup: kb - With: Private Physician - When: 2 - 3 days - Reason: Recheck today's complaints, Continuance of care, Re-evaluation by your physician Discharge Instructions: - Discharge Summary Sheet kb - COVID-19 kb - Viral Illness, Adult kb Forms: - Medication Reconciliation Form kb - Antibiotic Education kb - Prescription Opioid Use kb - Patient Portal Instructions kb - Leadership Thank You Letter kb Prescriptions: - Zofran 4 mg Oral tablet - take 1 tablet ORAL route every 6 hours As needed; 9 tablet; Refills: 0, Product kb Selection Permitted Signatures: Dispatcher [employer] EDMS Kamila Gupta, ANALOG IC DESIGN ENGINEER-C ANALOG IC DESIGN ENGINEER-Ckb Katey Tucker, RN RN aa5 Maggie Singer, MARANDA RN hb Jonathan Murrell RN bp Corrections: (The following items were deleted from the chart) 14:33 14:33 ACETAMINOPHEN+C.LAB.BRZ ordered. EDMS EDMS 14:33 14:33 BASIC METABOLIC PANEL+C.LAB.BRZ ordered. EDMS EDMS 14:33 14:33 CBC+H.LAB.BRZ ordered. EDMS EDMS 14:33 14:33 ETHANOL+C.LAB.BRZ ordered. EDMS EDMS 14:33 14:33 HEPATIC FUNCTION+C.LAB.BRZ ordered. EDMS EDMS 14:33 14:33 PROTIME (+INR)+COAG.LAB.BRZ ordered. EDMS EDMS 14:33 14:33 PTT, ACTIVATED+COAG.LAB.BRZ ordered. EDMS EDMS 14:33 14:33 SALICYLATE+C.LAB.BRZ ordered. EDMS EDMS 14:33 14:33 Urinalysis+U.LAB.BRZ ordered. EDMS EDMS 14:33 14:33 URINE DRUG SCREEN+UC.LAB.BRZ ordered. EDMS EDMS 16:08 16:08 SARS-COV-2 Antigen Rapid+I.LAB.BRZ ordered. EDMS EDMS 16:08 16:08 Influenza Screen (A \\T\\ B)+BA.LAB.BRZ ordered. EDMS EDMS
[2024-04-21 16:47] LABS: Blood Morphology Comment NOT SEEN (NOT SEEN); Platelet Estimate ADEQ; White Blood Cell Scan OK (OK)
--- NOTE | 2024-04-21 17:04 | ER ---
Nurse's Notes [facility] Name: Jens Renteria Jr Age: 18 yrs Sex: Male : 2005 Arrival Date: 04/21/2024 Time: 14:22 Bed 5 Private MD: Diagnosis: SARS-associated coronavirus as the cause of diseases classified elsewhere Presentation: 04/21 14:30 Chief complaint: N/V, generalized weakness, body aches, and decreased appetite x 1 hb week. Pt stated "I overdosed on perc twice last week." Denies HI/SI. Coronavirus screen: At this time, the client does not indicate any symptoms associated with coronavirus-19. Ebola Screen: No symptoms or risks identified at this time. Initial Sepsis Screen: Does the patient meet any 2 criteria? No. Patient's initial sepsis screen is negative. Does the patient have a suspected source of infection? No. Patient's initial sepsis screen is negative. Risk Assessment: Do you want to hurt yourself or someone else? Patient reports no desire to harm self or others. Onset of symptoms was April 15, 2024. 14:30 Method Of Arrival: Ambulatory hb 14:30 Acuity: MARY 3 hb Triage Assessment: 14:30 General: Appears in no apparent distress. Behavior is cooperative, appropriate for age, bp anxious. Pain: Denies pain. EENT: No deficits noted. Neuro: Reports weakness in GENERALIZED. GI: Reports nausea. Historical: - Allergies: 14:32 Keflex; hb - Home Meds: 14:32 None [Active]; hb - PMHx: 14:32 None; hb - PSHx: 14:32 None; hb - Immunization history:: Adult Immunizations up to date. - Infectious Disease History:: Denies. - Social history:: Smoking status: Patient reports the use of cigarette tobacco products, smokes two packs cigarettes per day. Patient uses street drugs, opioids . Screenin:[facility] ED Fall Risk Assessment (Adult) History of falling in the last 3 months, bp including since admission No falls in past 3 months (0 pts) Confusion or Disorientation No (0 pts) Intoxicated or Sedated No (0 pts) Impaired Gait No (0 pts) Mobility Assist Device Used No (0 pt) Altered Elimination No (0 pt) Score/Fall Risk Level 0 - 2 = Low Risk. Abuse screen: Denies threats or abuse. Denies injuries from another. Nutritional screening: No deficits noted. Tuberculosis screening: No symptoms or risk factors identified. Assessment: 14:35 General: Appears in no apparent distress. uncomfortable, Behavior is cooperative, bp appropriate for age, anxious. GI: Abdomen is non-distended. 16:05 Neuro: Level of Consciousness is awake, alert, obeys commands, Oriented to person, aa5 place, time, situation. Respiratory: Airway is patent Respiratory effort is even, unlabored, Respiratory pattern is regular, symmetrical. Derm: Skin is dry, Skin is normal, Skin temperature is hot. 16:46 Reassessment: Patient appears in no apparent distress at this time. Patient is alert, bp oriented x 3, equal unlabored respirations, skin warm/dry/pink. Vital Signs: 14:30 BP 132 / 89; Pulse 107; Resp 16; Temp 97.7; Pulse Ox 100% on R/A; Weight 39.46 kg; hb Height 5 ft. 2 in. ; Pain 7/10; 16:05 BP 124 / 75; Pulse 88; Resp 22; Temp 101.9(O); Pulse Ox 100% on R/A; aa5 16:46 BP 124 / 75; Pulse 100; Resp 23; Temp 99.8; Pulse Ox 100% ; bp 14:30 Body Mass Index 15.91 (39.46 kg, 157.48 cm) hb 14:30 Pain Scale: Adult hb 16:05 ASSISTANT SIGNAL MAINTAINER notified of increased temperature. aa5 ED Course: 14:26 Patient arrived in ED. bn 14:27 [facility] kb 14:27 Liana Sun MD is Attending Physician. kb 14:32 Triage completed. hb 14:33 Jonathan Murrell, RN is Primary Nurse. bp 14:33 Arm band placed on. hb 14:34 Patient has correct armband on for positive identification. bp 14:34 No provider procedures requiring assistance completed. bp 14:55 EKG done, by ED staff, reviewed by Kamila MCKEON. aa5 15:20 Urine collected: clean catch specimen, clear. bp 16:46 IV discontinued, intact, bleeding controlled, No redness/swelling at site. Pressure bp dressing applied. 16:47 Provided Education on: N/A. bp Administered Medications: 16:05 Drug: NS 0.9% IV 1000 ml IV at 1000 ml once Route: IV; Rate: 1000 ml; Site: right aa5 antecubital; 16:49 Follow up: IV Status: Completed infusion; IV Intake: 1000ml bp 16:05 Drug: Ondansetron IVP 4 mg IVP once; over 2 minutes Route: IVP; Site: right antecubital;aa5 16:46 Follow up: Response: No adverse reaction bp 16:09 Drug: Ibuprofen PO 600 mg PO once Route: PO; aa5 16:45 Follow up: Response: No adverse reaction bp Medication: 16:46 VIS not applicable for this client. bp Intake: 16:49 IV: 1000ml; Total: 1000ml. bp Outcome: 16:43 Discharge ordered by . kb 16:47 Discharged to home ambulatory, bp 16:47 Condition: stable 16:47 Discharge instructions given to patient, Instructed on discharge instructions, follow up and referral plans. medication usage, Demonstrated understanding of instructions, follow-up care, medications, Prescriptions given X 1, 17:03 Patient left the ED. aa5 Signatures: Kamila Gupta, INTELLIGENCE MANAGER-C INTELLIGENCE MANAGER-Katey Berry RN RN aa5 Maggie Singer RN RN Jonathan Elise RN RN bp Jazmyn Carias, Maynor Reg bn Corrections: (The following items were deleted from the chart) 17:05 17:00 BP 139 / 67; Pulse 98bpm; Resp 19bpm; Spontaneous; Pulse Ox 99% RA; Temp 100.2F aa5 Oral; aa5
[2024-04-21 20:41] VITALS: O2SAT 100
[2024-04-21 20:42] VITALS: BP 124/75
[2024-04-21 20:43] VITALS: TEMP 99.8
--- NOTE | 2024-04-22 17:07 | EKG ---
Test Date: 2024-04-21 Test Time: 14:52:24 Cnc Lathe Machinist: ANGELICA MEASUREMENT RESULTS: Intervals: Rate: 102 MA: 136 QRSD: 86 QT: 336 QTc: 437 Campbell: P: 78 MA: 136 QRS: 95 T: 68 INTERPRETIVE STATEMENTS: Sinus tachycardia Possible Lateral infarct, age undetermined Abnormal ECG Compared to ECG 06/08/2023 03:13:56 Myocardial infarct finding now present Sinus rhythm no longer present Electronically Signed On 04-22-24 17:04:43 CDT by Edgar Garcia
== END 2024-04-21 17:03 | disposition home or self-care (01) ==
LOC: ER 14:22 → EDSTATUS 14:31 → ER 17:03
DX: U07.1 COVID-19 (principal)
CPT/HCPCS: 36415; 80048; 80076; 80143; 80179; 80307; 81001; 82077; 85025; 85610; 85730; 87804; 87811; 93005; 96361; 96374; 99284; J2405; J7030

== ENCOUNTER 2024-05-04 16:49 | Emergency (ER) | payer SELFPAY ==
[2024-05-04] MEDS ORDERED: NA CHLORIDE 0.9% 1,000 ML ONE (17:06)
[2024-05-04] MEDS ORDERED: FENTANYL CITR 100 MCG/2 ML ONE (17:18)
[2024-05-04 17:35] LABS: Absolute Eosinophils 0.2 K/uL (0-0.5); Absolute Monocytes 0.7 K/uL (0.1-1.3); Absolute Neutrophil 3.7 K/uL (1.8-8.0); Basophils % 0.7 % (0-1.3); Hematocrit 42.5 % (39.6-49.0); Hemoglobin 14.4 g/dL (13.6-17.9); Lymphocytes % 17.7 % (15.3-44.8); MCH 29.6 pg (27.0-35.0); MCV 87.1 fL (80-100); MPV 7.4 fL (7.6-11.3); Monocytes % 11.5 % (3.3-12.3); Neutrophils % 66.1 % (41.7-73.7); Nucleated Red Blood Cells % 0.1 % (0-0); Platelets 331 thou/uL (152-406); RBC Red Blood Cell Count 4.88 M/uL (4.33-5.43); Red Cell Distribution Width 13.4 % (12.1-15.2)
[2024-05-04 17:51] LABS: PT Prothrombin Time 14.2 SECONDS (9.4-12.5); PTT, Activated Partial Thromb 37.2 SECONDS (24.3-36.9); Protime INR 1.28
[2024-05-04 18:03] LABS: Albumin 4.4 g/dL (3.4-5.0); Albumin/Globulin Ratio 1.2 (1.1-1.8); Anion Gap 10.3 mEq/L (5.0-15.0); Bilirubin Direct 0.2 mg/dL (0-0.2); Bilirubin Indirect, Calculated 0.4 mg/dL (0.2-0.8); Bilirubin Total 0.6 mg/dL (0.2-1.0); Globulin 3.6 g/dL (2.3-3.5); Troponin High Sensitivity 4.5 pg/mL (<58.9)
[2024-05-04 18:04] LABS: Specific Gravity < 1.005 (1.005-1.030); Urine Bilirubin NEGATIVE (Negative); Urine Blood Negative (Negative); Urine Clarity Clear (Clear); Urine Color Colorless (Yellow); Urine Glucose NEGATIVE (Negative); Urine Ketones NEGATIVE (Negative); Urine Microscopic Reflex YN NO UMIC; Urine Nitrite NEGATIVE (Negative); Urine Protein NEGATIVE (Negative); Urine Urobilinogen Normal (Normal); Urine pH 6.5 (5.0-7.0)
[2024-05-04 18:11] LABS: Magnesium 2.7 mg/dL (1.6-2.4); Potassium 3.3 mEq/L (3.5-5.1)
[2024-05-04 18:13] LABS: Barbiturates NEGATIVE (NEGATIVE); Benzodiazepines NEGATIVE (NEGATIVE); Cocaine POSITIVE (NEGATIVE); METHAMPHETAM NEGATIVE (NEGATIVE); Methadone NEGATIVE (NEGATIVE); Opiates NEGATIVE (NEGATIVE); Phencyclidine NEGATIVE (NEGATIVE); THC Cannibis POSITIVE (NEGATIVE)
--- NOTE | 2024-05-04 18:14 | RAD REPORT ---
EXAM DESCRIPTION: RAD - Chest Single View - 05/04/2024 6:00 pm CLINICAL HISTORY: CHEST PAIN COMPARISON: Chest Single View dated 07/10/2023; Chest Single View dated 07/07/2023; Chest Single Vie w dated 04/24/2023; Chest Single View dated 10/11/2016 FINDINGS: Lines: None. Lungs: No evidence of edema or pneumonia. Pleural: No significant pleural effusions or pneumothorax. Cardiac: The heart size is within normal limits. Mediastinum: Within normal limits. Bones: No acute fractures. Thoracolumbar curvature . Other: None IMPRESSION: No acute cardiopulmonary disease.
--- NOTE | 2024-05-04 21:20 | EDPHYS ---
Physician Documentation [facility] Name: Jens Renteria Jr Age: 18 yrs Sex: Male : 2005 Arrival Date: 05/04/2024 Time: 16:49 Bed 12 Private MD: ED Physician Isaak Ríos HPI: 05/04 16:59 This 18 yrs old Male presents to ER via Unassigned with complaints of Chest cp Pain. 17:00 The patient or guardian reports chest pain that is located primarily in the substernal cp area, epigastric area. The pain does not radiate. Associated signs and symptoms: Pertinent negatives: diaphoresis, dizziness, lower extremity pain, lower extremity swelling, shortness of breath, syncope, vomiting. 17:00 The chest pain is described as waxing and waning. Duration: The patient or guardian cp reports multiple episodes, times 2 weeks, pain worse today. admits to using cocaine about 1-2 hours ago. Severity of pain: in the emergency department the pain is unchanged despite EMS interventions. Historical: - Allergies: 17:01 Keflex; db - PMHx: 17:01 Drug abuse; db - Immunization history:: Adult Immunizations unknown. - Infectious Disease History:: Denies. - Social history:: Smoking status: Patient uses street drugs, cocaine. ROS: 17:00 Constitutional: Negative for body aches, chills, fever, poor PO intake, cp 17:00 Cardiovascular: Positive for chest pain, cp 17:00 Respiratory: Negative for cough, shortness of breath, wheezing, 17:00 Eyes: Negative for injury, pain, redness, and discharge, cp 17:00 Abdomen/GI: Negative for vomiting, diarrhea, constipation, 17:00 Neuro: Negative for altered mental status, headache, numbness, syncope, weakness, 17:00 All other systems are negative, cp Exam: 17:01 ECG was reviewed by the Attending Physician. cp 17:05 Constitutional: The patient appears in no acute distress, alert, awake, cp non-diaphoretic, non-toxic, well developed, well nourished, uncomfortable, 17:05 Head/Face: Normocephalic, atraumatic. cp 17:05 Eyes: Periorbital structures: appear normal, Conjunctiva: normal, no exudate, no cp injection, Sclera: no appreciated abnormality, Lids and lashes: appear normal, bilaterally, 17:05 ENT: External ear(s): are unremarkable, Nose: is normal, Mouth: Lips: moist, Oral cp mucosa: pink and intact, moist, Posterior pharynx: Airway: no evidence of obstruction, patent, 17:05 Neck: ROM/movement: is normal, is supple, without pain, no range of motions limitations, 17:05 Chest/axilla: Inspection: normal, Palpation: is normal, no crepitus, no tenderness, 17:05 Cardiovascular: Rate: normal, Rhythm: regular, 17:05 Respiratory: the patient does not display signs of respiratory distress, Respirations: normal, no use of accessory muscles, no retractions, labored breathing, is not present, Breath sounds: are clear throughout, no decreased breath sounds, no stridor, no wheezing, 17:05 Abdomen/GI: Inspection: abdomen appears normal, Palpation: soft, in all quadrants, mild abdominal tenderness, in the epigastric area, rebound tenderness, is not appreciated, involuntary guarding, is not appreciated, 17:05 Back: pain, is absent, ROM is normal, 17:05 Neuro: Orientation: to person, place \T\ time. Mentation: is normal, Motor: moves all fours, strength is normal, Sensation: is normal, 21:19 ECG was reviewed by the Attending Physician. cp Vital Signs: 16:48 BP 116 / 68; Pulse 89; Resp 16; Temp 99(O); Pulse Ox 100% on R/A; Weight 40.82 kg; db Height 5 ft. 3 in. ; 17:00 BP 107 / 72; Pulse 90; Resp 18; Pulse Ox 99% on R/A; tl4 17:30 BP 129 / 77; Pulse 78; Resp 17; Pulse Ox 100% on R/A; tl4 18:00 BP 114 / 71; Pulse 70; Resp 20; Pulse Ox 100% on R/A; tl4 18:30 BP 112 / 69 (/pedi); Pulse 58; Resp 16; Pulse Ox 100% on R/A; tl4 19:00 BP 111 / 79; Pulse 62; Resp 18; Pulse Ox 100% ; tl4 19:30 BP 110 / 69; Pulse 64; Resp 16; Pulse Ox 100% on R/A; tl4 20:30 BP 114 / 68; Pulse 74; Resp 16; Pulse Ox 99% on R/A; tl4 21:00 BP 117 / 66; Pulse 64; Resp 18; Pulse Ox 100% on R/A; tl4 16:48 Body Mass Index 15.94 (40.82 kg, 160.02 cm) db MDM: 16:59 Patient medically screened. 17:00 Differential diagnosis: acute myocardial infarction, pancreatitis, pleurisy, pneumonia, cp pneumothorax, thoracic aortic disection. 21:19 I considered the following discharge prescriptions or medication management in the emergency department Medications were administered in the Emergency Department. See MAR. 21:19 Independent interpretation of the following test(s) in the Emergency Department EKG: See my EKG interpretation above. Counseling: I had a detailed discussion with the patient and/or guardian regarding the historical points, exam findings, and any diagnostic results supporting the discharge/admit diagnosis, lab results, radiology results, to return to the emergency department if symptoms worsen or persist or if there are any questions or concerns that arise at home. Response to treatment: the patient's symptoms have markedly improved after treatment, and as a result, I will discharge patient. 21:31 Data reviewed: vital signs, nurses notes, lab test result(s), EKG, radiologic studies, plain films. 05/04 16:59 Order name: Basic Metabolic Panel; Complete Time: 18:23 cp 0818 18:23 Interpretation: Normal except: K 3.3. 05/04 16:59 Order name: CBC with Diff; Complete Time: 17:42 cp 05/04 17:42 Interpretation: Normal except: MPV 7.4. 05/04 16:59 Order name: LFT's; Complete Time: 18:23 cp 18 18:24 Interpretation: Normal except: GLOB 3.6. cp 05/04 16:59 Order name: Magnesium; Complete Time: 18:23 cp 18 16:59 Order name: PT-INR; Complete Time: 18:23 cp 18 16:59 Order name: Troponin HS; Complete Time: 18:23 cp 18 16:59 Order name: CK; Complete Time: 18:23 cp 18 16:59 Order name: Ptt, Activated; Complete Time: 18:23 cp 05/04 16:59 Order name: Urinalysis w/ reflexes; Complete Time: 18:23 cp 08 16:59 Order name: UDS; Complete Time: 18:23 cp 18 18:24 Interpretation: Normal except: JAX POSITIVE; THC POSITIVE. cp 05/04 20:15 Order name: Troponin High Sensitivity; Complete Time: 21:31 cp /18 21:31 Interpretation: Reviewed. cp 08 16:59 Order name: XRAY Chest (1 view); Complete Time: 18:23 cp 05/04 16:59 Order name: Cardiac monitoring; Complete Time: 17:02 cp 08 16:59 Order name: EKG - Nurse/Tech; Complete Time: 17:02 cp 08 16:59 Order name: IV Saline Lock; Complete Time: 17:30 cp 05/04 16:59 Order name: Labs collected and sent; Complete Time: 17:30 cp 05/04 16:59 Order name: O2 Per Protocol; Complete Time: 17:02 cp 05/04 16:59 Order name: O2 Sat Monitoring; Complete Time: 17:02 cp 05/04 20:15 Order name: EKG - Nurse/Tech; Complete Time: 21:25 cp EC:01 Rate is 86 beats/min. Rhythm is regular. AL interval is normal. QRS interval is normal. cp QT interval is normal. T waves are Inverted in lead aVR. Interpreted by me. Reviewed by me. 21:19 Rate is 51 beats/min. Rhythm is regular. AL interval is normal. QRS interval is normal. cp QT interval is normal. T waves are Inverted in leads aVL, aVR, V2. Interpreted by me. Reviewed by me. Administered Medications: 17:06 Not Given (PT RECEIVED BY EMS): aspirinchewable tablet 324 mg PO once; 81 mg tablets x 4db 17:31 Drug: NS 0.9% IV 1000 ml IV at 999 ml/hr Per protocol Route: IV; Rate: 999 ml/hr; Site: tl4 left antecubital; Delivery: Primary tubing; 18:25 Follow up: Response: No adverse reaction; IV Status: Completed infusion; IV Intake: tl4 1000ml 17:31 Drug: fentaNYL (PF) IVP 25 mcg IVP once Route: IVP; Site: left antecubital; tl4 17:51 Follow up: Response: No adverse reaction; Pain is decreased tl4 Disposition Summary: 08/18/24 21:19 Discharge Ordered Notes: Location: Home cp Problem: new cp Symptoms: have improved cp Condition: Stable cp Diagnosis - Chest pain, unspecified cp - Cocaine abuse cp Followup: cp - With: Private Physician - When: 1 - 2 days - Reason: Recheck today's complaints Discharge Instructions: - Discharge Summary Sheet cp - Nonspecific Chest Pain, Adult cp - Cocaine Use Disorder cp Forms: - Medication Reconciliation Form cp - Antibiotic Education cp - Prescription Opioid Use cp - Patient Portal Instructions cp - Leadership Thank You Letter cp Signatures: Dispatcher [employer] EDMS Isaak Duggan PA PA cp Molly Morales, RN RN db Sree Cohen RN RN tl4 Corrections: (The following items were deleted from the chart) 17:00 17:00 BASIC METABOLIC PANEL+C.LAB.BRZ ordered. EDMS EDMS 17:00 17:00 CBC+H.LAB.BRZ ordered. EDMS EDMS 17:00 17:00 HEPATIC FUNCTION+C.LAB.BRZ ordered. EDMS EDMS 17:00 17:00 MAGNESIUM+C.LAB.BRZ ordered. EDMS EDMS 17:00 17:00 PROTIME (+INR)+COAG.LAB.BRZ ordered. EDMS EDMS 17:00 17:00 Troponin High Sensitivity+C.LAB.BRZ ordered. EDMS EDMS 17:00 17:00 CREATINE PHOSPHOKINASE+C.LAB.BRZ ordered. EDMS EDMS 17:00 17:00 PTT, ACTIVATED+COAG.LAB.BRZ ordered. EDMS EDMS 17:00 17:00 Urinalysis+U.LAB.BRZ ordered. EDMS EDMS 17:00 17:00 URINE DRUG SCREEN+UC.LAB.BRZ ordered. EDMS EDMS 17:00 17:00 Chest Single View+RAD.RAD.BRZ ordered. EDMS EDMS
--- NOTE | 2024-05-04 21:20 | ER ---
Nurse's Notes [facility] Name: Jens Renteria Jr Age: 18 yrs Sex: Male : 2005 Arrival Date: 05/04/2024 Time: 16:49 Bed 12 Private MD: Diagnosis: Chest pain, unspecified;Cocaine abuse Presentation: 05/04 16:48 Chief complaint: EMS states: CHEST PAIN X 2 WEEKS. LAST USED COCAINE TODAY 1.5 HRS AGO. db STATES PAIN GOT WORSE TODAY. Coronavirus screen: Client denies travel out of the [place] in the last 14 days. At this time, the client does not indicate any symptoms associated with coronavirus-19. Ebola Screen: Patient negative for fever greater than or equal to 101.5 degrees Fahrenheit, and additional compatible Ebola Virus Disease symptoms Patient denies exposure to infectious person. Patient denies travel to an Ebola-affected area in the 21 days before illness onset. No symptoms or risks identified at this time. Initial Sepsis Screen: Does the patient meet any 2 criteria? No. Patient's initial sepsis screen is negative. Does the patient have a suspected source of infection? No. Patient's initial sepsis screen is negative. Risk Assessment: Do you want to hurt yourself or someone else? Patient reports no desire to harm self or others. Onset of symptoms was May 04, 2024. Care prior to arrival: Medication(s) given: ASA, 81 mg, x 4, IV initiated. 20 GA, in the left antecubital area. 16:48 Method Of Arrival: EMS: [facility] db 16:48 Acuity: MARY 2 db Triage Assessment: 16:48 General: Appears in no apparent distress. emaciated. General: Behavior is calm, db cooperative. Pain: Complains of pain in chest. Neuro: Level of Consciousness is awake, alert, obeys commands, Oriented to person, place, time, situation. Cardiovascular: Reports chest pain. Respiratory: Airway is patent Respiratory effort is even, unlabored, Respiratory pattern is regular, symmetrical. GI: Abdomen is flat, non-distended, Reports nausea, vomiting. Historical: - Allergies: 17:01 Keflex; db - PMHx: 17:01 Drug abuse; db - Immunization history:: Adult Immunizations unknown. - Infectious Disease History:: Denies. - Social history:: Smoking status: Patient uses street drugs, cocaine. Screenin:33 [facility] ED Fall Risk Assessment (Adult) History of falling in the last 3 months, tl4 including since admission No falls in past 3 months (0 pts) Confusion or Disorientation No (0 pts) Intoxicated or Sedated No (0 pts) Impaired Gait No (0 pts) Mobility Assist Device Used No (0 pt) Altered Elimination No (0 pt) Score/Fall Risk Level 0 - 2 = Low Risk Oriented to surroundings, Maintained a safe environment, Educated pt \T\ family on fall prevention, incl call for assistance when getting out of bed, Assessed \T\ reinforced patient's understanding of fall precautions. Abuse screen: Denies threats or abuse. Denies injuries from another. Nutritional screening: No deficits noted. Tuberculosis screening: No symptoms or risk factors identified. Assessment: 17:31 General: Appears in no apparent distress. Behavior is calm, cooperative. Pain: tl4 Complains of pain in chest Pain radiates to right arm and left arm Pain began gradually, 'a couple of weeks'. Neuro: Level of Consciousness is awake, alert, obeys commands, Oriented to person, place, time, situation, Moves all extremities. Full function Speech is normal, Facial symmetry appears normal. Cardiovascular: Reports chest pain, Denies lightheadedness, nausea, palpitations, shortness of breath, syncope, Capillary refill < 3 seconds Patient's skin is warm and dry. Respiratory: Airway is patent Respiratory effort is even, unlabored, Respiratory pattern is regular, symmetrical. GI: No signs and/or symptoms were reported involving the gastrointestinal system. : No signs and/or symptoms were reported regarding the genitourinary system. 18:41 Reassessment: Patient and/or family updated on plan of care and expected duration. Pain tl4 level reassessed. Patient is alert, oriented x 3, equal unlabored respirations, skin warm/dry/pink. Pt denies any needs at this time. Call castañeda at bedside. Will continue to monitor. 19:48 Reassessment: Patient and/or family updated on plan of care and expected duration. Pain tl4 level reassessed. Patient is alert, oriented x 3, equal unlabored respirations, skin warm/dry/pink. Pt denies any needs. Awaiting disposition from provider. Will continue to monitor. 21:08 Reassessment: Patient and/or family updated on plan of care and expected duration. Pain tl4 level reassessed. Patient is alert, oriented x 3, equal unlabored respirations, skin warm/dry/pink. Pt states he needs to leave due to his ride being here and he 'is on papers' and needs to sign in. Provider Page aware. 21:25 Reassessment: Pt not in room. Pt left prior to discharge. Provider aware. tl4 Vital Signs: 16:48 BP 116 / 68; Pulse 89; Resp 16; Temp 99(O); Pulse Ox 100% on R/A; Weight 40.82 kg; db Height 5 ft. 3 in. ; 17:00 BP 107 / 72; Pulse 90; Resp 18; Pulse Ox 99% on R/A; tl4 17:30 BP 129 / 77; Pulse 78; Resp 17; Pulse Ox 100% on R/A; tl4 18:00 BP 114 / 71; Pulse 70; Resp 20; Pulse Ox 100% on R/A; tl4 18:30 BP 112 / 69 (/pedi); Pulse 58; Resp 16; Pulse Ox 100% on R/A; tl4 19:00 BP 111 / 79; Pulse 62; Resp 18; Pulse Ox 100% ; tl4 19:30 BP 110 / 69; Pulse 64; Resp 16; Pulse Ox 100% on R/A; tl4 20:30 BP 114 / 68; Pulse 74; Resp 16; Pulse Ox 99% on R/A; tl4 21:00 BP 117 / 66; Pulse 64; Resp 18; Pulse Ox 100% on R/A; tl4 16:48 Body Mass Index 15.94 (40.82 kg, 160.02 cm) db ED Course: 16:48 Arm band placed on Patient placed in an exam room. db 16:57 Patient arrived in ED. db 16:58 Isaak Duggan PA is PHCP. cp 16:58 Isaak Ríos MD is Attending Physician. cp 17:00 Triage completed. db 17:02 Molly Morales, MARANDA is Primary Nurse. db 17:02 Maintain EMS IV. Dressing intact. Good blood return noted. Site clean \T\ dry. Gauge \T\ db site: 20 G LAC. 17:30 Basic Metabolic Panel Sent. tl4 17:30 CBC with Diff Sent. tl4 17:30 LFT's Sent. tl4 17:30 Magnesium Sent. tl4 17:31 PT-INR Sent. tl4 17:31 Troponin HS Sent. tl4 17:31 CK Sent. tl4 17:31 Ptt, Activated Sent. tl4 17:31 Initial lab(s) drawn, by me, sent to lab. tl4 17:33 Patient has correct armband on for positive identification. Placed in gown. Bed in low tl4 position. Call light in reach. Side rails up X 1. Provided Education on: ed process, call castañeda. Client placed on continuous cardiac and pulse oximetry monitoring. NIBP monitoring applied. monitoring manager on. Door closed. Noise minimized. Lights dimmed. Moved to private room. Warm blanket given. Pillow given. 17:34 No provider procedures requiring assistance completed. Patient maintains SpO2 tl4 saturation greater than 95% on room air. 17:49 UDS Sent. tl4 17:49 Urinalysis w/ reflexes Sent. tl4 17:50 Urine collected: clean catch specimen. tl4 18:02 XRAY Chest (1 view) In Process Unspecified. EDMS 20:52 Troponin High Sensitivity Sent. tl4 21:14 EKG done, by ED staff, reviewed by Isaak FRIED. tl4 21:16 IV discontinued, intact, bleeding controlled, No redness/swelling at site. Pressure tl4 dressing applied. Administered Medications: 17:06 Not Given (PT RECEIVED BY EMS): aspirinchewable tablet 324 mg PO once; 81 mg tablets x 4db 17:31 Drug: NS 0.9% IV 1000 ml IV at 999 ml/hr Per protocol Route: IV; Rate: 999 ml/hr; Site: tl4 left antecubital; Delivery: Primary tubing; 18:25 Follow up: Response: No adverse reaction; IV Status: Completed infusion; IV Intake: tl4 1000ml 17:31 Drug: fentaNYL (PF) IVP 25 mcg IVP once Route: IVP; Site: left antecubital; tl4 17:51 Follow up: Response: No adverse reaction; Pain is decreased tl4 Medication: 17:33 VIS not applicable for this client. tl4 Intake: 18:25 IV: 1000ml; Total: 1000ml. tl4 Outcome: 21:19 Discharge ordered by MD. paula 21:25 Discharged to home pt left prior to discharge tl4 21:25 Condition: pt left prior to discharge 21:25 Discharge instructions given to Pt left ED prior to discharge 22:12 Patient left the ED. tl4 Signatures: Dispatcher [employer] Isaak Rangel PA PA cp Benton, Danielle, RN RN Sree Alatorre RN RN tl4
[2024-05-04 22:53] VITALS: BP 117/66; O2SAT 100
--- OUTSIDE RECORDS SUMMARY | 2024-05-06 13:01 | XMS REPORT | Continuity of Care Document ---
Author Name Unknown Address [address] [facility] [address] [place] [address] [facility] llcect Address [address] [facility]. 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 Role Phone DANIE PEREZ Primary Care Physician DANIE Malcolm Attending Clinician Unavailab DANIE Wilkins Attending Clinician Unavailab Jacki Graff RN Attending Clinician UnaTERESA Sarmiento Attending Clinician Unavailable 2, [facility] Attending Clinician Unavailable LLUVIA SAMAYOA Attending Clinician Unavailable Lluvia Samayoa MD Attending Clinician [phone] Doctor Unassigned, Strawn Attending Clinician U YARED Franklin Attending Clinician Unavailable HORTENSIA PAL Attending Clinician Unavailab Hortensia Kumari PA-C Attending Clinician [phone] LIEN CEE Attending Clinician Unavailable Nurse, Dewey Beverly Attending Clinician Unavailable Lien Cee MD Attending Clinician [phone] BRAYAN NARVAEZ Attending Clinician Unavailable Brayan Narvaez DO Attending Clinician [phone] Thuy Waller MD Attending Clinician [phone] THUY WALLER Attending Clinician Unavail able Dylan FOSTER Keira J Attending Clinician [phone] PROMISE SALEEM Attending Clinician UnavailDeniz Del Rio OT Attending Clinician Promise Taylor MD Attending Clinician [phone] Madi Ivey MD Attending Clinician + MADI IVEY Attending Clinician Unav Augustine Escudero Attending Clinician [phone] AUGUSTINE KAYE Attending Clinician Unavailable PROMISE SAELEM Attending Clinician UnavailElisa Mccallum MD Attending Clinician + [phone] PROMISE SALEEM Admitting Clinician Unavailagusto aceves Payers Payer Name Policy Type Policy Number Effective Date Expirati on Date Source FORMERLY [facility] [id number] 2017 00:00:00 [place] [id number] 2023 00:00:00 Problems Condition Name Condition Details Condition Category Status Onset Date Resolution Date Last Treatment Date Treating Clinician Comments Source Right wrist pain Right wrist pain Disease Active 02-22 00:00: 00 [facility] Decreased range of motion of right wrist Decreased range of motion of right wrist Disease Active 02-22 00:00: 00 [facility] Pain of right hand Pain of right hand Disease Active 02-22 00:00: 00 [facility] 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 Disease Active 02-22 00:00: 00 [facility] Allergies, Adverse Reactions, Alerts Allergy Name Allergy Type Status Severity Reaction(s) Onset Date Inactive Date Treating Clinician Comments Source Cephalex in Propensi ty to adverse reaction s Active Hives 01-08 00:00: 00 [facility] CEPHALEX IN DRUG INGREDI Active Hives 01-08 00:00: 00 [facility] Social History Social Habit Start Date Stop Date Quantity Comments Source [facility] Exposure to SARS-CoV-2 (event) Not sure [facility] History of Social function 2020-11-16 00:00:00 2020-11-16 00:00:00 [facility] Tobacco use and exposure 2018-01-08 00:00:00 2018-01-08 00:00:00 Smokeless tobacco non-user [facility] Sex assigned at 2003 00:00:00 2005 00:00:00 [facility] Smoking Status Start Date Stop Date Source Never smoked tobacco [facility] Medications Ordered Medication Name Filled Medication Name Start Date Stop Date Current Medication? Ordering Clinician Indication Dosage Frequency Signature (SIG) Comments Components Source ergocalcife rol, vitamin d2, (VITAMIN D2) 1,250 mcg (50,000 unit) capsule 12-24 00:00: 00 Yes [id number] Take 1 capsule by mouth weekly. [facility] methylPREDN ISolone (MEDROL, EDUAR,) 4 mg tablets 12-23 00:00: 00 Yes [id number] Take by mouth SEE-INSTRU CTIONS. follow package directions [facility] acetaminoph en 500 mg tablet 12-23 00:00: 00 Yes [id number] 500mg Take 1 tablet by mouth every 6 (six) hours as needed for Pain or Fever. [facility] promethazin e-dextromet horphan 6.25-15 mg/5 mL syrup 12-23 00:00: 00 Yes [id number] 5mL Take 5 mL by mouth 4 (four) times daily as needed for Cough. [facility] doxycycline hyclate 100 mg capsule 12-23 00:00: 00 01-03 04:59 :00 No [id number] 100mg Take 1 capsule by mouth in the morning and 1 capsule in the evening. Do all this for 10 days. [facility] ondansetron 4 mg disintegrat ing tablet 11-22 00:00: 00 12-23 00:00 :00 No [id number] 4mg Take 1 tablet by mouth every 8 (eight) hours as needed for Nausea and Vomiting (N/V). [facility] FLUoxetine 20 mg capsule 2021-0 8-05 00:00: 00 12-23 00:00 :00 No [id number] 20mg Take 1 capsule by mouth daily. [facility] FLUoxetine 10 mg capsule 2020-0 8-05 00:00: 00 12-23 00:00 :00 No [id number] 10mg Take 1 capsule by mouth daily. [facility] hydrOXYzine 25 mg tablet 2020-0 8-05 00:00: 00 12-23 00:00 :00 No [id number] 25mg Take 1 tablet by mouth every 8 (eight) hours as needed for Anxiety. [facility] FLUoxetine 20 mg capsule 0 6-22 00:00: 00 12-23 00:00 :00 No [id number] 20mg Take 1 capsule by mouth daily. [facility] omeprazole 20 mg capsule 0 3-05 00:00: 00 12-23 00:00 :00 No [id number] 20mg Take 1 capsule by mouth daily. [facility] Immunizations Ordered Immunization Name Filled Immunization Name Date Status Comments Source Meningococcal Polysaccharide (groups A, C, Y and W-135) conjugate vaccine (MCV4P) 2020-11-16 00:00:00 Completed [facility] Meningococcal B, OMV 2020-11-16 00:00:00 Completed [facility] Meningococcal Polysaccharide (groups A, C, Y and W-135) conjugate vaccine (MCV4P) 2020-11-16 00:00:00 Completed [facility] Meningococcal B, OMV 2020-11-16 00:00:00 Completed [facility] Meningococcal Polysaccharide (groups A, C, Y and W-135) conjugate vaccine (MCV4P) 2020-11-16 00:00:00 Completed [facility] Meningococcal B, OMV 2020-11-16 00:00:00 Completed [facility] Meningococcal Polysaccharide (groups A, C, Y and W-135) conjugate vaccine (MCV4P) 2020-11-16 00:00:00 Completed [facility] Meningococcal B, OMV 2020-11-16 00:00:00 Completed [facility] HPV 2016-03-01 00:00:00 Completed [facility] HPV 2016-03-01 00:00:00 Completed [facility] HPV 2016-03-01 00:00:00 Completed [facility] HPV 2016-03-01 00:00:00 Completed [facility] HPV 2014-11-25 00:00:00 Completed [facility] TDAP 2014-11-25 00:00:00 Completed [facility] Meningococcal Polysaccharide (groups A, C, Y and W-135) conjugate vaccine (MCV4P) 2014-11-25 00:00:00 Completed [facility] HPV 2014-11-25 00:00:00 Completed [facility] TDAP 2014-11-25 00:00:00 Completed [facility] Meningococcal Polysaccharide (groups A, C, Y and W-135) conjugate vaccine (MCV4P) 2014-11-25 00:00:00 Completed [facility] HPV 2014-11-25 00:00:00 Completed [facility] TDAP 2014-11-25 00:00:00 Completed [facility] Meningococcal Polysaccharide (groups A, C, Y and W-135) conjugate vaccine (MCV4P) 2014-11-25 00:00:00 Completed [facility] HPV 2014-11-25 00:00:00 Completed [facility] TDAP 2014-11-25 00:00:00 Completed [facility] Meningococcal Polysaccharide (groups A, C, Y and W-135) conjugate vaccine (MCV4P) 2014-11-25 00:00:00 Completed [facility] DTAP 2007-10-24 00:00:00 Completed [facility] MMR 2007-10-24 00:00:00 Completed [facility] Polio (IPV/OPV) 2007-10-24 00:00:00 Completed [facility] Varicella (varivax)(chicken pox) 2007-10-24 00:00:00 Completed [facility] DTAP 2007-10-24 00:00:00 Completed [facility] MMR 2007-10-24 00:00:00 Completed [facility] Polio (IPV/OPV) 2007-10-24 00:00:00 Completed [facility] Varicella (varivax)(chicken pox) 2007-10-24 00:00:00 Completed [facility] DTAP 2007-10-24 00:00:00 Completed [facility] MMR 2007-10-24 00:00:00 Completed [facility] Polio (IPV/OPV) 2007-10-24 00:00:00 Completed [facility] Varicella (varivax)(chicken pox) 2007-10-24 00:00:00 Completed [facility] DTAP 2007-10-24 00:00:00 Completed [facility] MMR 2007-10-24 00:00:00 Completed [facility] Polio (IPV/OPV) 2007-10-24 00:00:00 Completed [facility] Varicella (varivax)(chicken pox) 2007-10-24 00:00:00 Completed [facility] HEPATITIS A 2006-09-24 00:00:00 Completed [facility] HEPATITIS A 2006-09-24 00:00:00 Completed [facility] HEPATITIS A 2006-09-24 00:00:00 Completed [facility] HEPATITIS A 2006-09-24 00:00:00 Completed [facility] HEPATITIS A 2005-09-26 00:00:00 Completed [facility] HEPATITIS A 2005-09-26 00:00:00 Completed [facility] HEPATITIS A 2005-09-26 00:00:00 Completed [facility] HEPATITIS A 2005-09-26 00:00:00 Completed [facility] DTAP 2005-02-09 00:00:00 Completed [facility] Pneumococcal 7 Conjugate, PCV7 (Prevnar7) 2005-02-09 00:00:00 Completed [facility] Pneumococcal 13 Conjugate, PCV13 (Prevnar 13) 2005-02-09 00:00:00 Completed [facility] DTAP 2005-02-09 00:00:00 Completed [facility] Pneumococcal 7 Conjugate, PCV7 (Prevnar7) 2005-02-09 00:00:00 Completed [facility] Pneumococcal 13 Conjugate, PCV13 (Prevnar 13) 2005-02-09 00:00:00 Completed [facility] Pneumococcal 13 Conjugate, PCV13 (Prevnar 13) 2005-02-09 00:00:00 Completed [facility] Pneumococcal 13 Conjugate, PCV13 (Prevnar 13) 2005-02-09 00:00:00 Completed [facility] HIB 4 Dose Schedule 2004 00:00:00 Completed [facility] MMR 2004 00:00:00 Completed [facility] Varicella (varivax)(chicken pox) 2004 00:00:00 Completed [facility] HIB 4 Dose Schedule 2004 00:00:00 Completed [facility] MMR 2004 00:00:00 Completed [facility] Varicella (varivax)(chicken pox) 2004 00:00:00 Completed [facility] HIB 4 Dose Schedule 2004 00:00:00 Completed [facility] MMR 2004 00:00:00 Completed [facility] Varicella (varivax)(chicken pox) 2004 00:00:00 Completed [facility] HIB 4 Dose Schedule 2004 00:00:00 Completed [facility] MMR 2004 00:00:00 Completed [facility] Varicella (varivax)(chicken pox) 2004 00:00:00 Completed [facility] Pneumococcal 7 Conjugate, PCV7 (Prevnar7) 2004-07-11 00:00:00 Completed [facility] Pneumococcal 13 Conjugate, PCV13 (Prevnar 13) 2004-07-11 00:00:00 Completed [facility] Pneumococcal 7 Conjugate, PCV7 (Prevnar7) 2004-07-11 00:00:00 Completed [facility] Pneumococcal 13 Conjugate, PCV13 (Prevnar 13) 2004-07-11 00:00:00 Completed [facility] Pneumococcal 13 Conjugate, PCV13 (Prevnar 13) 2004-07-11 00:00:00 Completed [facility] Pneumococcal 13 Conjugate, PCV13 (Prevnar 13) 2004-07-11 00:00:00 Completed [facility] HIB 4 Dose Schedule 2004-04-22 00:00:00 Completed [facility] Pediarix (dtap/hep B/ipv) 2004-04-22 00:00:00 Completed [facility] HIB 4 Dose Schedule 2004-04-22 00:00:00 Completed [facility] Pediarix (dtap/hep B/ipv) 2004-04-22 00:00:00 Completed [facility] Pediarix (dtap/hep B/ipv) 2004-02-25 00:00:00 Completed [facility] Pneumococcal 7 Conjugate, PCV7 (Prevnar7) 2004-02-25 00:00:00 Completed [facility] Pneumococcal 13 Conjugate, PCV13 (Prevnar 13) 2004-02-25 00:00:00 Completed [facility] Pediarix (dtap/hep B/ipv) 2004-02-25 00:00:00 Completed [facility] Pneumococcal 7 Conjugate, PCV7 (Prevnar7) 2004-02-25 00:00:00 Completed [facility] Pneumococcal 13 Conjugate, PCV13 (Prevnar 13) 2004-02-25 00:00:00 Completed [facility] Pneumococcal 13 Conjugate, PCV13 (Prevnar 13) 2004-02-25 00:00:00 Completed [facility] Pneumococcal 13 Conjugate, PCV13 (Prevnar 13) 2004-02-25 00:00:00 Completed [facility] HIB 4 Dose Schedule 2004-02-19 00:00:00 Completed [facility] HIB 4 Dose Schedule 2004-02-19 00:00:00 Completed [facility] HIB 4 Dose Schedule 2003 00:00:00 Completed [facility] Pediarix (dtap/hep B/ipv) 2003 00:00:00 Completed [facility] Pneumococcal 7 Conjugate, PCV7 (Prevnar7) 2003 00:00:00 Completed [facility] Pneumococcal 13 Conjugate, PCV13 (Prevnar 13) 2003 00:00:00 Completed [facility] HIB 4 Dose Schedule 2003 00:00:00 Completed [facility] Pediarix (dtap/hep B/ipv) 2003 00:00:00 Completed [facility] Pneumococcal 7 Conjugate, PCV7 (Prevnar7) 2003 00:00:00 Completed [facility] Pneumococcal 13 Conjugate, PCV13 (Prevnar 13) 2003 00:00:00 Completed [facility] Pneumococcal 13 Conjugate, PCV13 (Prevnar 13) 2003 00:00:00 Completed [facility] Pneumococcal 13 Conjugate, PCV13 (Prevnar 13) 2003 00:00:00 Completed [facility] Hep B, Adol or Pedi Dosage 2003 00:00:00 Completed [facility] Hep B, Adol or Pedi Dosage 2003 00:00:00 Completed [facility] DTAP Unknown Completed [facility] HIB 4 Dose Schedule Unknown Completed [facility] HEPATITIS A Unknown Completed [facility] HEPATITIS A Unknown Completed [facility] HPV Unknown Completed [facility] HPV Unknown Completed [facility] MMR Unknown Completed [facility] MMR Unknown Completed [facility] Pneumococcal 13 Conjugate, PCV13 (Prevnar 13) Unknown Completed [facility] Pneumococcal 13 Conjugate, PCV13 (Prevnar 13) Unknown Completed [facility] Pneumococcal 13 Conjugate, PCV13 (Prevnar 13) Unknown Completed [facility] Pneumococcal 13 Conjugate, PCV13 (Prevnar 13) Unknown Completed [facility] Polio (IPV/OPV) Unknown Completed [facility] TDAP Unknown Completed [facility] Varicella (varivax)(chicken pox) Unknown Completed [facility] Varicella (varivax)(chicken pox) Unknown Completed [facility] Meningococcal Polysaccharide (groups A, C, Y and W-135) conjugate vaccine (MCV4P) Unknown Completed [facility] Meningococcal Polysaccharide (groups A, C, Y and W-135) conjugate vaccine (MCV4P) Unknown Completed [facility] Meningococcal B, OMV Unknown Completed [facility] DTAP Unknown Completed [facility] HIB 4 Dose Schedule Unknown Completed [facility] HEPATITIS A Unknown Completed [facility] HEPATITIS A Unknown Completed [facility] HPV Unknown Completed [facility] HPV Unknown Completed [facility] MMR Unknown Completed [facility] MMR Unknown Completed [facility] Pneumococcal 13 Conjugate, PCV13 (Prevnar 13) Unknown Completed [facility] Pneumococcal 13 Conjugate, PCV13 (Prevnar 13) Unknown Completed [facility] Pneumococcal 13 Conjugate, PCV13 (Prevnar 13) Unknown Completed [facility] Pneumococcal 13 Conjugate, PCV13 (Prevnar 13) Unknown Completed [facility] Polio (IPV/OPV) Unknown Completed [facility] TDAP Unknown Completed [facility] Varicella (varivax)(chicken pox) Unknown Completed [facility] Varicella (varivax)(chicken pox) Unknown Completed [facility] Meningococcal Polysaccharide (groups A, C, Y and W-135) conjugate vaccine (MCV4P) Unknown Completed [facility] Meningococcal Polysaccharide (groups A, C, Y and W-135) conjugate vaccine (MCV4P) Unknown Completed [facility] Meningococcal B, OMV Unknown Completed [facility] DTAP Unknown Completed [facility] HIB 4 Dose Schedule Unknown Completed [facility] HEPATITIS A Unknown Completed [facility] HEPATITIS A Unknown Com[facility] HPV Unknown Completed [facility] HPV Unknown Completed [facility] MMR Unknown Completed [facility] MMR Unknown Completed [facility] Pneumococcal 13 Conjugate, PCV13 (Prevnar 13) Unknown Completed [facility] Pneumococcal 13 Conjugate, PCV13 (Prevnar 13) Unknown Completed [facility] Pneumococcal 13 Conjugate, PCV13 (Prevnar 13) Unknown Completed [facility] Pneumococcal 13 Conjugate, PCV13 (Prevnar 13) Unknown Completed [facility] Polio (IPV/OPV) Unknown Completed [facility] TDAP Unknown Completed [facility] Varicella (varivax)(chicken pox) Unknown Completed [facility] Varicella (varivax)(chicken pox) Unknown Completed [facility] Meningococcal Polysaccharide (groups A, C, Y and W-135) conjugate vaccine (MCV4P) Unknown Completed [facility] Meningococcal Polysaccharide (groups A, C, Y and W-135) conjugate vaccine (MCV4P) Unknown Completed [facility] Meningococcal B, OMV Unknown Completed [facility] DTAP Unknown Completed [facility] HIB 4 Dose Schedule Unknown Completed [facility] HEPATITIS A Unknown Completed [facility] HEPATITIS A Unknown Completed [facility] HPV Unknown Completed [facility] HPV Unknown Completed [facility] MMR Unknown Completed [facility] MMR Unknown Completed [facility] Pneumococcal 13 Conjugate, PCV13 (Prevnar 13) Unknown Completed [facility] Pneumococcal 13 Conjugate, PCV13 (Prevnar 13) Unknown Completed [facility] Pneumococcal 13 Conjugate, PCV13 (Prevnar 13) Unknown Completed [facility] Pneumococcal 13 Conjugate, PCV13 (Prevnar 13) Unknown Completed [facility] Polio (IPV/OPV) Unknown Completed [facility] TDAP Unknown Completed [facility] Varicella (varivax)(chicken pox) Unknown Completed [facility] Varicella (varivax)(chicken pox) Unknown Completed [facility] Meningococcal Polysaccharide (groups A, C, Y and W-135) conjugate vaccine (MCV4P) Unknown Completed [facility] Meningococcal Polysaccharide (groups A, C, Y and W-135) conjugate vaccine (MCV4P) Unknown Completed [facility] Meningococcal B, OMV Unknown Completed [facility] DTAP Unknown Completed [facility] HIB 4 Dose Schedule Unknown Completed [facility] HEPATITIS A Unknown Completed [facility] HEPATITIS A Unknown Completed [facility] HPV Unknown Completed [facility] HPV Unknown Completed [facility] MMR Unknown Completed [facility] MMR Unknown Completed [facility] Pneumococcal 13 Conjugate, PCV13 (Prevnar 13) Unknown Completed [facility] Pneumococcal 13 Conjugate, PCV13 (Prevnar 13) Unknown Completed [facility] Pneumococcal 13 Conjugate, PCV13 (Prevnar 13) Unknown Completed [facility] Pneumococcal 13 Conjugate, PCV13 (Prevnar 13) Unknown Completed [facility] Polio (IPV/OPV) Unknown Completed [facility] TDAP Unknown Completed [facility] Varicella (varivax)(chicken pox) Unknown Completed [facility] Varicella (varivax)(chicken pox) Unknown Completed [facility] Meningococcal Polysaccharide (groups A, C, Y and W-135) conjugate vaccine (MCV4P) Unknown Completed [facility] [facility] Meningococcal Polysaccharide (groups A, C, Y and W-135) conjugate vaccine (MCV4P) Unknown Completed [facility] Meningococcal B, OMV Unknown Completed [facility] HIB 4 Dose Schedule Unknown Completed [facility] HIB 4 Dose Schedule Unknown Completed [facility] Hep B, Adol or Pedi Dosage Unknown Completed [facility] Pediarix (dtap/hep B/ipv) Unknown Completed [facility] Pediarix (dtap/hep B/ipv) Unknown Completed [facility] Pneumococcal 7 Conjugate, PCV7 (Prevnar7) Unknown Completed [facility] Pneumococcal 7 Conjugate, PCV7 (Prevnar7) Unknown Completed [facility] HIB 4 Dose Schedule Unknown Completed [facility] Pediarix (dtap/hep B/ipv) Unknown Completed [facility] Pneumococcal 7 Conjugate, PCV7 (Prevnar7) Unknown Completed [facility] DTAP Unknown Completed [facility] Pneumococcal 7 Conjugate, PCV7 (Prevnar7) Unknown Completed [facility] Vital Signs Vital Name Observation Time Observation Value Comments S ource Systolic blood pressure 2023-12-24 17:58:00 116 mm[Hg] [facility] Diastolic blood pressure 2023-12-24 17:58:00 79 mm[Hg] [facility] Heart rate 2023-12-24 17:58:00 90 /min [facility] Body temperature 2023-12-24 17:58:00 37.17 Hina [facility] Respiratory rate 2023-12-24 17:58:00 18 /min [facility] Body height 2023-12-24 17:58:00 160 cm [facility] Body weight 2023-12-24 17:58:00 41.232 kg [facility] BMI 2023-12-24 17:58:00 16.10 kg/m2 [facility] Oxygen saturation in Arterial blood by Pulse oximetry 2023-12-24 17:58:00 97 /min [facility] Systolic blood pressure 2021-12-27 19:33:00 118 mm[Hg] [facility] Diastolic blood pressure 2021-12-27 19:33:00 77 mm[Hg] [facility] Heart rate 2021-12-27 19:33:00 93 /min [facility] Respiratory rate 2021-12-27 19:33:00 16 /min [facility] Body weight 2021-12-27 19:33:00 39.179 kg [facility] Procedures Procedure Date / Time Performed Performing Clinician Source CBC WITH DIFF 2023-12-24 18:44:00 [facility] GLYCOSYL[facility] HEMOGLOBIN (A1C) 2023-12-24 18:44:00 Danie Perez [facility] INSURANCE CORRESPONDENCE 2023-02-10 05:01:00 Doc tor Unassigned, Strawn [facility] Encounters Start Date/Time End Date/Time Encounter Type Admission Type Attending Clinicians Care Facility Care Department Encounter ID Source 2021-07-18 08:31:39 Emergency [facility] [id number] [facility] 2024-05-09 14:30:00 2024-05-09 14:30:00 Outpatient R DANIE PEREZ OGECHUKWU [facility] [id number] [facility] 2024-05-04 00:00:00 2024-05-04 16:23:34 Nurse Triage Strimple, Jacki L Jacki Travis [facility] 1..840.114 350.1.13.10 4.2.7.2.686 [id number] [facility] 2024-03-24 11:00:00 2024-03-24 11:00:00 Outpatient R DANIE PEREZ OGECHUKWU [facility] [id number] [facility] 2024-03-10 13:00:00 2024-03-10 13:00:00 Outpatient R TERESA POST [facility] [id number] [facility] 2023-12-25 00:00:00 2023-12-25 00:00:00 Telephone Danie Perez [facility] 1..840.114 350.1.13.10 4.2.7.2.686 [id number] [facility] 2023-12-24 13:45:00 2023-12-24 14:00:00 Branch Sales And Service Representative Visit 2, Adc Lab Danie Perez [facility] 1.2.840.114 350.1.13.10 4.2.7.2.686 [id number] [facility] 2023-12-24 13:00:00 2023-12-24 13:29:09 Outpatient R DANIE PEREZ OGFORMERLY [facility] [id number] [facility] 2023-12-24 13:00:00 2023-12-24 13:29:09 Office Visit Danie Perez [facility] 1.2.840.114 350.1.13.10 4.2.7.2.686 [id number] [facility] 2023-04-03 14:00:00 2023-04-03 14:00:00 Outpatient R LLUVIA SAMAYOA [facility] [id number] [facility] 2023-03-23 14:00:00 2023-03-23 14:00:00 Outpatient R LLUVIA SAMAYOA [facility] [id number] [facility] 2023-03-23 00:00:00 2023-03-23 00:00:00 Letter (Out) Lluvia Samayoa [facility] 1.2.840.114 350.1.13.10 4.2.7.2.686 [id number] [facility] 2023-02-10 00:00:00 2023-02-10 00:00:00 Orders Only Doctor Unassigned, Strawn [facility] 1.2.840.114 350.1.13.10 4.2.7.2.686 [id number] [facility] 2022-01-10 13:00:00 2022-01-10 13:00:00 Outpatient Ryan LESLIEJarad YARED [facility] [id number] [facility] 2021-12-27 14:30:00 2021-12-27 15:03:18 Outpatient HORTENSIA ESPARZA [facility] [id number] [facility] 2021-12-27 14:30:00 2021-12-27 15:03:18 Office Visit [facility]ens[facility] 1.2.840.114 350.1.13.10 4.2.7.2.686 [id number] [facility] 2021-12-27 14:30:00 2021-12-27 15:03:18 Outpatient HORTENSIA ESPARZA [facility] [id number] [facility] 2021-12-14 08:40:00 2021-12-14 08:53:05 Outpatient LIEN DHILLON [facility] [id number] [facility] 2021-12-14 08:40:00 2021-12-14 08:53:05 Branch Sales And Service Representative Visit Nurse, Dewey Cee [facility] 1.2.840.114 350.1.13.10 4.2.7.2.686 [id number] [facility] 2021-12-13 09:50:00 2021-12-13 10:37:19 Outpatient HORTENSIA ESPARZA [facility] [id number] [facility] 2021-12-13 09:50:00 2021-12-13 10:37:19 Outpatient HORTENSIA ESPARZA [facility] [id number] [facility] 2021-12-13 08:10:00 2021-12-13 08:10:00 Outpatient HORTENSIA ESPARZA [facility] [id number] [facility] 2021-12-13 00:00:00 2021-12-13 00:00:00 Orders Only Doctor Unassigned, Strawn [facility] 1.2.840.114 350.1.13.10 4.2.7.2.686 [id number] [facility] 2021-11-22 09:12:00 2021-11-22 09:48:00 Emergency X BRAYAN NARVAEZ [facility] ERT [id number] [facility] 2021-11-22 09:12:00 2021-11-22 09:48:00 Emergency Brayan Narvaez [facility] 1.2.840.114 350.1.13.10 4.2.7.2.686 [id number] [facility] 2021-05-30 15:50:00 2021-05-30 15:50:00 Outpatient HORTENSIA ESPARZA [facility] [id number] [facility] 2021-04-21 11:06:47 2021-04-21 11:56:04 Office Visit Thuy Waller [facility] 1.2.840.114 350.1.13.10 4.2.7.2.686 [id number] [facility] 2021-04-21 10:40:00 2021-04-21 10:40:00 Outpatient THUY HUERTA [facility] [id number] [facility] 2021-04-21 00:00:00 2021-04-21 00:00:00 Letter (Out) Thuy Waller [facility] 1.2.840.114 350.1.13.10 4.2.7.2.686 [id number] [facility] 2021-04-05 11:20:00 2021-04-05 11:20:00 Outpatient THUY HUERTA [facility] [id number] [facility] 2021-03-31 16:02:00 2021-03-31 21:18:00 Emergency Keira Richardson [facility] 1.2840.114 350.1.13.10 4.2.7.2.686 [id number] [facility] 2021-03-17 00:00:00 2021-03-17 00:00:00 Telephone Lien Cee [facility] 1.2840.114 350.1.13.10 4.2.7.2.686 [id number] [facility] 2021-03-08 10:58:33 2021-03-08 11:51:15 Office Visit Lien Cee [facility] 1.2.840.114 350.1.13.10 4.2.7.2.686 [id number] [facility] 2021-03-08 11:20:00 2021-03-08 11:20:00 Outpatient R EVANSLIEN BILLY [facility] [id number] [facility] 2021-02-22 10:45:00 2021-02-22 11:45:47 Outpatient R PROMISE SALEEM [facility] [id number] [facility] 2021-02-22 10:40:09 2021-02-22 11:45:47 Ancillary [facility] 1..114 350.1.13.10 4.2.7.2.686 [id number] [facility] 2021-02-01 10:23:45 2021-02-01 11:20:58 Office Visit Madi Ivey [facility] 1.2.114 350.1.13.10 4.2.7.2.686 [id number] [facility] 2021-02-01 10:40:00 2021-02-01 10:40:00 Outpatient MADI BURLESON [facility] [id number] [facility] 2021-01-28 09:43:18 2021-01-28 09:58:18 Office Visit Augustine Kaye Penelope [facility] [place] 1..840.114 350.1.13.10 4.2.7.2.686 [id number] [facility] 2021-01-28 09:45:00 2021-01-28 09:45:00 Outpatient R AUGUSTINE KAYE [facility] [id number] [facility] 2021-01-28 00:00:00 2021-01-28 00:00:00 Letter (Out) Augustine Kaye Penelope [facility] Yang 1.2.840.114 350.1.13.10 4.2.7.2.686 [id number] [facility] 2021-01-13 10:36:15 2021-01-13 23:59:00 Outpatient PROMISE DE LA TORRE [facility] [id number] [facility] 2021-01-13 10:36:15 2021-01-13 23:59:00 Hospital Encounter Promise Saleem [facility] 1.2.840.114 350.1.13.10 4.2.7.2.686 [id number] [facility] 2021-01-13 00:00:00 2021-01-13 00:00:00 Outpatient PROMISE DE LA TORRE [facility] [id number] [facility] 2021-01-13 00:00:00 2021-01-13 00:00:00 Orders Only Doctor Unassigned, Strawn [facility] 1..840.114 350.1.13.10 4.2.7.2.686 [id number] [facility] 2021-01-03 00:00:00 2021-01-03 00:00:00 Outpatient PROMISE DE LA TORRE CRAIG [facility] [id number] [facility] 2020-12-24 08:44:09 2020-12-24 23:59:00 Outpatient R PROMISE SALEEM [facility] [id number] [facility] 2020-12-24 08:44:09 2020-12-24 23:59:00 Outpatient PROMISE SALEEM [facility] [id number] [facility] 2020-12-24 08:44:09 2020-12-24 23:59:00 Hospital Encounter Promise Saleem [facility] [address] 1.2.840.114 350.1.13.10 4.2.7.2.686 [id number] [facility] 2020-12-24 08:30:48 2020-12-24 09:19:56 Office Visit Promise Saleem [facility] Yang 1.2.840.114 350.1.13.10 4.2.7.2.686 [id number] [facility] 2020-12-24 00:00:00 2020-12-24 00:00:00 Letter (Out) Augustine Kaye [facility] [place] 1.2.840.114 350.1.13.10 4.2.7.2.686 [id number] [facility] 2020-12-14 09:10:37 2020-12-14 09:51:05 Office Visit Lien Cee [facility] 1.2.840.114 350.1.13.10 4.2.7.2.686 [id number] [facility] 2020-12-14 09:40:00 2020-12-14 09:40:00 Outpatient R LIEN CEE [facility] [id number] [facility] 2020-11-17 00:00:00 2020-11-17 00:00:00 Telephone Lien Cee [facility] 1.2.840.114 350.1.13.10 4.2.7.2.686 [id number] [facility] 2020-11-16 17:00:00 2020-11-16 17:15:00 Billing Encounter Lien Cee [facility] 1.2.840.114 350.1.13.10 4.2.7.2.686 [id number] [facility] 2020-11-16 15:35:35 2020-11-16 16:31:31 Office Visit Lien Cee [facility] 1.2.840.114 350.1.13.10 4.2.7.2.686 [id number] [facility] 2020-11-16 15:40:00 2020-11-16 15:40:00 Outpatient R LIEN CEE [facility] [id number] [facility] 2020-11-16 00:00:00 2020-11-16 00:00:00 Orders Only Doctor Unassigned, Strawn [facility] 1.2.840.114 350.1.13.10 4.2.7.2.686 [id number] [facility] 2019-05-23 00:00:00 2019-05-23 00:00:00 Telephone Gen [place] [facility] 1.2.840.114 350.1.13.10 4.2.7.2.686 [id number] [facility] 2019-05-12 10:07:34 2019-05-12 11:01:28 Office Visit Elisa Perez [facility] 1.2.840.114 350.1.13.10 4.2.7.2.686 [id number] [facility] 2019-05-12 00:00:00 2019-05-12 00:00:00 Letter (Out) Gen Weems [place] [facility] [place] [facility] 1.2.840.114 350.1.13.10 4.2.7.2.686 [id number] [facility] Results Test Description Test Time Test Comments Results Result Co mments Source [facility] (A1C)2023-12-24 19:30:28* Test Item Value Reference Range Interpretation Comme nts HGB A1C (test code = 4548-4) 5.1 % 4.0-5.7 GUILLERMO (test code = GUILLERMO) Reference RangesNormal: <5.7%Prediabetes: 5.7 - 6.4%Diabetes: > 6.5% Lab Interpretation (test code = 33712-4) Normal [facility] with [id number] 18:57:50* Test Item Value Reference Range Interpretation [...] 34.0 g/dL 31.2-35.0 RDW-SD (test code = 99363-3) 41.2 fL 38.5-51.6 RDW-CV (test code = 788-0) 12.5 % 12.1-15.4 PLT (test code = 777-3) 404 150-328 H MPV (test code = 21226-8) 8.7 fL 9.8-13.0 L NRBC/100 WBC (test code = 3014301002) 0.0 0.0-10.0 NRBC x10^3 (test code = 8941375619) See_Comment [Automated messa ge] The system which generated this result transmitted reference range: 10*3/?L. The reference range was not used to interpret this result as normal/abnormal. GRAN MAT (NEUT) % (test code = 770-8) 76.4 % IMM GRAN % (test code = 0982616723) 1.00 % LYMPH % (test code = 736-9) 10.9 % MONO % (test code = 5905-5) 9.3 % EOS % (test code = 713-8) 1.9 % BASO % (test code = 706-2) 0.5 % GRAN MAT x10^3(ANC) (test code = 2921902851) 9.58 10*3/uL 1.99-6.95 H IMM GRAN x10^3 (test code = 6550576995) 0.12 10*3/uL 0.00-0.06 H LYMPH x10^3 (test code = 731-0) 1.37 10*3/uL 1.09-3.23 MONO x10^3 (test code = 742-7) 1.17 10*3/uL 0.36-1.02 H EOS x10^3 (test code = 711-2) 0.24 10*3/uL 0.06-0.53 BASO x10^3 (test code = 704-7) 0.06 10*3/uL 0.01-0.09 Lab Interpretation (test code = 86646-4) Abnormal [facility] with [id number] 18:57:50* Test Item Value Reference Range Interpretation [...] 34.0 g/dL 31.2-35.0 RDW-SD (test code = 55083-3) 41.2 fL 38.5-51.6 RDW-CV (test code = 788-0) 12.5 % 12.1-15.4 PLT (test code = 777-3) 404 150-328 H MPV (test code = 70953-3) 8.7 fL 9.8-13.0 L NRBC/100 WBC (test code = 5567590885) 0.0 0.0-10.0 NRBC x10^3 (test code = 1926561240) See_Comment [Automated messa ge] The system which generated this result transmitted reference range: 10*3/?L. The reference range was not used to interpret this result as normal/abnormal. GRAN MAT (NEUT) % (test code = 770-8) 76.4 % IMM GRAN % (test code = 3597189953) 1.00 % LYMPH % (test code = 736-9) 10.9 % MONO % (test code = 5905-5) 9.3 % EOS % (test code = 713-8) 1.9 % BASO % (test code = 706-2) 0.5 % GRAN MAT x10^3(ANC) (test code = 7792463484) 9.58 10*3/uL 1.99-6.95 H IMM GRAN x10^3 (test code = 0858799380) 0.12 10*3/uL 0.00-0.06 H LYMPH x10^3 (test code = 731-0) 1.37 10*3/uL 1.09-3.23 MONO x10^3 (test code = 742-7) 1.17 10*3/uL 0.36-1.02 H EOS x10^3 (test code = 711-2) 0.24 10*3/uL 0.06-0.53 BASO x10^3 (test code = 704-7) 0.06 10*3/uL 0.01-0.09 Lab Interpretation (test code = 01072-0) Abnormal [facility] Notes Date/Time Note Provider Source 2024-05-04 15:57:00 Regarding: sharp pain in R arm, chest pain, tremors x 3 weeks ----- Message from Loki Kothari sent at 05/04/2024 3:55 PM CDT ----- Jens Lemons Jr. is a 18 year old male Pt states he is currently feeling sharp pain down his R arm, chest pains, and body tremors and they have been coming and going x 3 weeks Set Pt an appt but Pt wants to talk with nurse Jacki Travis RN [facility] 2024-05-04 15:57:00 Adult Triage Assessment Last Clinic Visit: 12/24/23 family med, fever Primary Symptom: right arm pain and chest pain Onset / Duration: 3-4 weeks worsening Location / Description: right arm pain and chest pain, shaky and heart pounding, feels Pain / Severity: 8-9/10 Associated Symptoms: vomiting today Fever / Method: denies Hydration: drinking lots water and coke, urinating less than usual Treatment so far: none Effect on ADL's: moderate LMP: n/a Pre-existing condition / Immunocompromised: right wrist pain Jens Lemons Jr. is a 18 year old male calling for concern of right arm and chest pain worsening over the past few weeks. Patient reports having difficulty walking and driving due to being unsteady. Patient given care advice to gp to ED now for treatment and encouraged to call 911 if he feels unsafe driving. Call back instructions provided and patient voices understanding. Reason for Disposition SEVERE chest pain Protocols used: Chest [id number] [facility] 2024-05-04 15:57:00 Routing to correct clinic Camelia Todd LVN [facility] 2024-05-04 15:57:00 Call placed to pt to inquire if he went to ER, X2 attempts - 1st phone with static unable to hear pt, 2nd attempt no option given to LVM. Michaela Faith RN [facility] 2023-12-24 13:45:00 Images from the original note were not included. Venipuncture collection performed by clean technique on the right anticubitus. Total of 1 attempts were made. Slight pressure and a bandage/dressing were applied to the site(s). The patient experienced no complications. The following specimens were processed according to instructions and sent to [facility] laboratories per lab order on 12/24/2023: LT BLUE SST 3 RED LAV 2 PPT DK GREEN (LiHep) DK GREEN (SodH) BUCK DK BLUE (K2) DK BLUE (S) ACD Blood Culture NIPT/NTD [facility]
--- NOTE | 2024-05-06 17:50 | EKG ---
Test Date: 2024-05-04 Test Time: 21:14:44 Pugger Helper: MARCELINO MEASUREMENT RESULTS: Intervals: Rate: 51 IL: 132 QRSD: 94 QT: 446 QTc: 411 [place]: P: 56 IL: 132 QRS: 88 T: 69 INTERPRETIVE STATEMENTS: Sinus bradycardia Possible Lateral infarct, age undetermined Abnormal ECG Compared to ECG 05/04/2024 16:55:35 Sinus rhythm no longer present Sinus arrhythmia no longer present Atrial abnormality no longer present Myocardial infarct finding still present Electronically Signed On 05-06-24 17:46:34 CDT by Minor Hauser
--- NOTE | 2024-05-06 17:51 | EKG ---
Test Date: 2024-05-04 Test Time: 16:55:35 Reiki Practitioner: KAVEH MEASUREMENT RESULTS: Intervals: Rate: 86 VT: 146 QRSD: 90 QT: 390 QTc: 466 [place]: P: 78 VT: 146 QRS: 88 T: 67 INTERPRETIVE STATEMENTS: Normal sinus rhythm with sinus arrhythmia Right atrial enlargement Possible Lateral infarct, age undetermined Abnormal ECG Compared to ECG 04/21/2024 14:52:24 Atrial abnormality now present Sinus tachycardia no longer present Myocardial infarct finding still present Electronically Signed On 05-06-24 17:46:50 CDT by Minor Hauser
== END 2024-05-04 22:12 | disposition home or self-care (01) ==
LOC: ER 16:49
DX: R07.9 Chest pain, unspecified (principal); F14.10 Cocaine abuse, uncomplicated
CPT/HCPCS: 36415; 71045; 80048; 80076; 80307; 81003; 82550; 83735; 84484; 85025; 85610; 85730; 93005; 96361; 96374; 99285; J3010; J7030

== ENCOUNTER 2024-05-21 13:50 | Emergency (ER) | payer SELFPAY ==
--- OUTSIDE RECORDS SUMMARY | 2024-05-21 13:54 | XMS REPORT | Continuity of Care Document ---
Author Name Unknown Address [address] [facility] [address]. [address] [place] [address] [facility] thconnect Address [address] [facility]. [address] [place] [address] Care Team Providers Care Hydrochloric Area Supervisor Name Role Phone DANIE PEREZ Primary Care Physician UnaDANIE Mae Attending Clinician Unavailab DANIE Wilkins Attending Clinician Unavailab derick Perez [employer]ED [employer]SP[employer] SERVICE MANAGER, Danie Attending Clinician [phone] Angy LOW, Jacki Grimes Attending Clinician UnaTERESA Sarmiento Attending Clinician Unavailable 2, [facility] Attending Clinician Unavailable LLUVIA SAMAYOA Attending Clinician Unavailable Lluvia Samayoa MD Attending Clinician [phone] Doctor Unassigned, Pease Attending Clinician U YARED Franklin Attending Clinician Unavailable HORTENSIA PAL Attending Clinician Unavailab Hortensia Kumari PA-C Attending Clinician [phone] LIEN CEE Attending Clinician Unavailable Nurse, Dewey Beverly Attending Clinician Unavailable Lien Cee MD Attending Clinician [phone] BRAYAN NARVAEZ Attending Clinician Unavailable Brayan Narvaez DO Attending Clinician [phone] Thuy Waller MD Attending Clinician THUY WALLER Attending Clinician Unavail able Keira Richardson DO Attending Clinician [phone] PROMISE SALEEM Attending Clinician UnavailDeniz Del Rio OT Attending Clinician Unava Promise Lopez MD Attending Clinician [phone] Madi Ivey MD Attending Clinician + MADI IVEY Attending Clinician Unav Augustine Escudero S Attending Clinician [phone] AUGUSTINE KAYE Attending Clinician Unavailable PROMISE SALEEM Attending Clinician UnavailElisa Mccallum MD Attending Clinician + [phone] PROMISE SALEEM Admitting Clinician Unavailagusto e Payers Payer Name Policy Type Policy Number Effective Date Expirati on Date Source [facility] [id number] 2017 00:00:00 [place] [id number] 2023 00:00:00 Problems Condition Name Condition Details Condition Category Status Onset Date Resolution Date Last Treatment Date Treating Clinician Comments Source Right wrist pain Right wrist pain Disease Active 02-22 00:00: 00 [facility] Decreased range of motion of right wrist Decreased range of motion of right wrist Disease Active 02-22 00:00: 00 [facility] Pain of right hand Pain of right hand Disease Active 02-22 00:00: 00 [facility] 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 Disease Active 02-22 00:00: 00 [facility] Allergies, Adverse Reactions, Alerts Allergy Name Allergy Type Status Severity Reaction(s) Onset Date Inactive Date Treating Clinician Comments Source Cephalex in Propensi ty to adverse reaction s Active Hives 01-08 00:00: 00 [facility] CEPHALEX IN DRUG INGREDI Active Hives 01-08 00:00: 00 [facility] Social History Social Habit Start Date Stop Date Quantity Comments Source [facility] to SARS-CoV-2 (event) Not sure [facility] History of Social function 2020-11-16 00:00:00 2020-11-16 00:00:00 [facility] Tobacco use and exposure 2018-01-08 00:00:00 2018-01-08 00:00:00 Smokeless tobacco non-user [facility] Sex assigned at 2003 00:00:00 2003 00:00:00 [facility] Smoking Status Start Date Stop Date Source Never smoked tobacco [facility] Medications Ordered Medication Name Filled Medication Name Start Date Stop Date Current Medication? Ordering Clinician Indication Dosage Frequency Signature (SIG) Comments Components Source ergocalcife rol, vitamin d2, (VITAMIN D2) 1,250 mcg (50,000 unit) capsule 12-24 00:00: 00 Yes [id number] Take 1 capsule by mouth weekly. [facility] methylPREDN ISolone (MEDROL, EDUAR,) 4 mg tablets 12-23 00:00: 00 Yes [id number] Take by mouth SEE-INSTRU CTIONS. follow package directions [facility] acetaminoph en 500 mg tablet 12-23 00:00: 00 Yes [id number] 500mg Take 1 tablet by mouth every 6 (six) hours as needed for Pain or Fever. [facility] promethazin e-dextromet horphan 6.25-15 mg/5 mL syrup 12-23 00:00: 00 Yes [id number] 5mL Take 5 mL by mouth 4 (four) times daily as needed for Cough. [facility] doxycycline hyclate 100 mg capsule 12-23 00:00: 00 01-03 04:59 :00 No [id number] 100mg Take 1 capsule by mouth in the morning and 1 capsule in the evening. Do all this for 10 days. [facility] ondansetron 4 mg disintegrat ing tablet 11-22 00:00: 00 12-23 00:00 :00 No [id number] 4mg Take 1 tablet by mouth every 8 (eight) hours as needed for Nausea and Vomiting (N/V). [facility] FLUoxetine 20 mg capsule 0 8-05 00:00: 00 12-23 00:00 :00 No [id number] 20mg Take 1 capsule by mouth daily. [facility] FLUoxetine 10 mg capsule 8-05 00:00: 00 12-23 00:00 :00 No [id number] 10mg Take 1 capsule by mouth daily. [facility] hydrOXYzine 25 mg tablet 8-05 00:00: 00 12-23 00:00 :00 No [id number] 25mg Take 1 tablet by mouth every 8 (eight) hours as needed for Anxiety. [facility] FLUoxetine 20 mg capsule 6-22 00:00: 00 12-23 00:00 :00 No [id number] 20mg Take 1 capsule by mouth daily. [facility] omeprazole 20 mg capsule 3-05 00:00: 00 12-23 00:00 :00 No [id number] 20mg Take 1 capsule by mouth daily. [facility] Immunizations Ordered Immunization Name Filled Immunization Name Date Status Comments Source Meningococcal Polysaccharide (groups A, C, Y and W-135) conjugate vaccine (MCV4P) 2020-11-16 00:00:[address] [facility] Meningococcal B, OMV 2020-11-16 00:00:[address] [facility] Meningococcal Polysaccharide (groups A, C, Y and W-135) conjugate vaccine (MCV4P) 2020-11-16 00:00:[address] [facility] Meningococcal B, OMV 2020-11-16 00:00:[address] [facility] Meningococcal Polysaccharide (groups A, C, Y and W-135) conjugate vaccine (MCV4P) 2020-11-16 00:00:[address] [facility] Meningococcal B, OMV 2020-11-16 00:00:[address] [facility] Meningococcal Polysaccharide (groups A, C, Y and W-135) conjugate vaccine (MCV4P) 2020-11-16 00:00:[address] [facility] Meningococcal B, OMV 2020-11-16 00:00:[address] [facility] HPV 2016-03-01 00:00:[address] [facility] HPV 2016-03-01 00:00:[address] [facility] HPV 2016-03-01 00:00:[address] [facility] HPV 2016-03-01 00:00:[address] [facility] HPV 2014-11-25 00:00:[address] [facility] TDAP 2014-11-25 00:00:[address] [facility] Meningococcal Polysaccharide (groups A, C, Y and W-135) conjugate vaccine (MCV4P) 2014-11-25 00:00:[address] [facility] HPV 2014-11-25 00:00:[address] [facility] TDAP 2014-11-25 00:00:[address] [facility] Meningococcal Polysaccharide (groups A, C, Y and W-135) conjugate vaccine (MCV4P) 2014-11-25 00:00:[address] [facility] HPV 2014-11-25 00:00:[address] [facility] TDAP 2014-11-25 00:00:[address] [facility] Meningococcal Polysaccharide (groups A, C, Y and W-135) conjugate vaccine (MCV4P) 2014-11-25 00:00:[address] [facility] HPV 2014-11-25 00:00:[address] [facility] TDAP 2014-11-25 00:00:[address] [facility] Meningococcal Polysaccharide (groups A, C, Y and W-135) conjugate vaccine (MCV4P) 2014-11-25 00:00:[address] [facility] DTAP 2007-10-24 00:00:[address] [facility] MMR 2007-10-24 00:00:[address] [facility] Polio (IPV/OPV) 2007-10-24 00:00:[address] [facility] Varicella (varivax)(chicken pox) 2007-10-24 00:00:[address] [facility] DTAP 2007-10-24 00:00:[address] [facility] MMR 2007-10-24 00:00:[address] [facility] Polio (IPV/OPV) 2007-10-24 00:00:[address] [facility] Varicella (varivax)(chicken pox) 2007-10-24 00:00:[address] [facility] DTAP 2007-10-24 00:00:[address] [facility] MMR 2007-10-24 00:00:[address] [facility] Polio (IPV/OPV) 2007-10-24 00:00:[address] [facility] Varicella (varivax)(chicken pox) 2007-10-24 00:00:[address] [facility] DTAP 2007-10-24 00:00:[address] [facility] MMR 2007-10-24 00:00:[address] [facility] Polio (IPV/OPV) 2007-10-24 00:00:[address] [facility] Varicella (varivax)(chicken pox) 2007-10-24 00:00:[address] [facility] HEPATITIS A 2006-09-24 00:00:[address] [facility] HEPATITIS A 2006-09-24 00:00:[address] [facility] HEPATITIS A 2006-09-24 00:00:[address] [facility] HEPATITIS A 2006-09-24 00:00:[address] [facility] HEPATITIS A 2005-09-26 00:00:[address] [facility] HEPATITIS A 2005-09-26 00:00:[address] [facility] HEPATITIS A 2005-09-26 00:00:[address] [facility] HEPATITIS A 2005-09-26 00:00:[address] [facility] DTAP 2005-02-09 00:00:[address] [facility] Pneumococcal 7 Conjugate, PCV7 (Prevnar7) 2005-02-09 00:00:[address] [facility] Pneumococcal 13 Conjugate, PCV13 (Prevnar 13) 2005-02-09 00:00:[address] [facility] DTAP 2005-02-09 00:00:[address] [facility] Pneumococcal 7 Conjugate, PCV7 (Prevnar7) 2005-02-09 00:00:[address] [facility] Pneumococcal 13 Conjugate, PCV13 (Prevnar 13) 2005-02-09 00:00:[address] [facility] Pneumococcal 13 Conjugate, PCV13 (Prevnar 13) 2005-02-09 00:00:[address] [facility] Pneumococcal 13 Conjugate, PCV13 (Prevnar 13) 2005-02-09 00:00:[address] [facility] HIB 4 Dose Schedule 2004 00:00:[address] [facility] MMR 2004 00:00:[address] [facility] Varicella (varivax)(chicken pox) 2004 00:00:[address] [facility] HIB 4 Dose Schedule 2004 00:00:[address] [facility] MMR 2004 00:00:[address] [facility] Varicella (varivax)(chicken pox) 2004 00:00:[address] [facility] HIB 4 Dose Schedule 2004 00:00:[address] [facility] MMR 2004 00:00:[address] [facility] Varicella (varivax)(chicken pox) 2004 00:00:[address] [facility] HIB 4 Dose Schedule 2004 00:00:[address] [facility] MMR 2004 00:00:[address] [facility] Varicella (varivax)(chicken pox) 2004 00:00:[address] [facility] Pneumococcal 7 Conjugate, PCV7 (Prevnar7) 2004-07-11 00:00:[address] [facility] Pneumococcal 13 Conjugate, PCV13 (Prevnar 13) 2004-07-11 00:00:[address] [facility] Pneumococcal 7 Conjugate, PCV7 (Prevnar7) 2004-07-11 00:00:[address] [facility] Pneumococcal 13 Conjugate, PCV13 (Prevnar 13) 2004-07-11 00:00:[address] [facility] Pneumococcal 13 Conjugate, PCV13 (Prevnar 13) 2004-07-11 00:00:[address] [facility] Pneumococcal 13 Conjugate, PCV13 (Prevnar 13) 2004-07-11 00:00:[address] [facility] HIB 4 Dose Schedule 2004-04-22 00:00:[address] [facility] Pediarix (dtap/hep B/ipv) 2004-04-22 00:00:[address] [facility] HIB 4 Dose Schedule 2004-04-22 00:00:[address] [facility] Pediarix (dtap/hep B/ipv) 2004-04-22 00:00:[address] [facility] Pediarix (dtap/hep B/ipv) 2004-02-25 00:00:[address] [facility] Pneumococcal 7 Conjugate, PCV7 (Prevnar7) 2004-02-25 00:00:[address] [facility] Pneumococcal 13 Conjugate, PCV13 (Prevnar 13) 2004-02-25 00:00:[address] [facility] Pediarix (dtap/hep B/ipv) 2004-02-25 00:00:[address] [facility] Pneumococcal 7 Conjugate, PCV7 (Prevnar7) 2004-02-25 00:00:[address] [facility] Pneumococcal 13 Conjugate, PCV13 (Prevnar 13) 2004-02-25 00:00:[address] [facility] Pneumococcal 13 Conjugate, PCV13 (Prevnar 13) 2004-02-25 00:00:[address] [facility] Pneumococcal 13 Conjugate, PCV13 (Prevnar 13) 2004-02-25 00:00:[address] [facility] HIB 4 Dose Schedule 2004-02-19 00:00:[address] [facility] HIB 4 Dose Schedule 2004-02-19 00:00:[address] [facility] HIB 4 Dose Schedule 2003 00:00:[address] [facility] Pediarix (dtap/hep B/ipv) 2003 00:00:[address] [facility] Pneumococcal 7 Conjugate, PCV7 (Prevnar7) 2003 00:00:[address] [facility] Pneumococcal 13 Conjugate, PCV13 (Prevnar 13) 2003 00:00:[address] [facility] HIB 4 Dose Schedule 2003 00:00:[address] [facility] Pediarix (dtap/hep B/ipv) 2003 00:00:[address] [facility] Pneumococcal 7 Conjugate, PCV7 (Prevnar7) 2003 00:00:[address] [facility] Pneumococcal 13 Conjugate, PCV13 (Prevnar 13) 2003 00:00:[address] [facility] Pneumococcal 13 Conjugate, PCV13 (Prevnar 13) 2003 00:00:[address] [facility] Pneumococcal 13 Conjugate, PCV13 (Prevnar 13) 2003 00:00:[address] [facility] Hep B, Adol or Pedi Dosage 2003 00:00:[address] [facility] Hep B, Adol or Pedi Dosage 2003 00:00:[address] [facility] DTAP Unknown Completed [facility] HIB 4 Dose Schedule Unknown Completed [facility] HEPATITIS A Unknown Completed [facility] HEPATITIS A Unknown Completed [facility] HPV Unknown Completed [facility] HPV Unknown Completed [facility] MMR Unknown Completed [facility] MMR Unknown Completed [facility] Pneumococcal 13 Conjugate, PCV13 (Prevnar 13) Unknown Completed [facility] Pneumococcal 13 Conjugate, PCV13 (Prevnar 13) Unknown Completed [facility] Pneumococcal 13 Conjugate, PCV13 (Prevnar 13) Unknown Completed [facility] Pneumococcal 13 Conjugate, PCV13 (Prevnar 13) Unknown Completed [facility] Polio (IPV/OPV) Unknown Completed [facility] TDAP Unknown Completed [facility] Varicella (varivax)(chicken pox) Unknown Completed [facility] Varicella (varivax)(chicken pox) Unknown Completed [facility] Meningococcal Polysaccharide (groups A, C, Y and W-135) conjugate vaccine (MCV4P) Unknown Completed [facility] Meningococcal Polysaccharide (groups A, C, Y and W-135) conjugate vaccine (MCV4P) Unknown Completed [facility] Meningococcal B, OMV Unknown Completed [facility] DTAP Unknown Completed [facility] HIB 4 Dose Schedule Unknown Completed [facility] HEPATITIS A Unknown Completed [facility] HEPATITIS A Unknown Completed [facility] HPV Unknown Completed [facility] HPV Unknown Completed [facility] MMR Unknown Completed [facility] MMR Unknown Completed [facility] Pneumococcal 13 Conjugate, PCV13 (Prevnar 13) Unknown Completed [facility] Pneumococcal 13 Conjugate, PCV13 (Prevnar 13) Unknown Completed [facility] Pneumococcal 13 Conjugate, PCV13 (Prevnar 13) Unknown Completed [facility] Pneumococcal 13 Conjugate, PCV13 (Prevnar 13) Unknown Completed [facility] Polio (IPV/OPV) Unknown Completed [facility] TDAP Unknown Completed [facility] Varicella (varivax)(chicken pox) Unknown Completed [facility] Varicella (varivax)(chicken pox) Unknown Completed [facility] Meningococcal Polysaccharide (groups A, C, Y and W-135) conjugate vaccine (MCV4P) Unknown Completed [facility] Meningococcal Polysaccharide (groups A, C, Y and W-135) conjugate vaccine (MCV4P) Unknown Completed [facility] Meningococcal B, OMV Unknown Completed [facility] DTAP Unknown Completed [facility] HIB 4 Dose Schedule Unknown Completed [facility] HEPATITIS A Unknown Completed [facility] HEPATITIS A Unknown Completed [facility] HPV Unknown Completed [facility] HPV Unknown Completed [facility] MMR Unknown Completed [facility] MMR Unknown Completed [facility] Pneumococcal 13 Conjugate, PCV13 (Prevnar 13) Unknown Completed [facility] Pneumococcal 13 Conjugate, PCV13 (Prevnar 13) Unknown Completed [facility] Pneumococcal 13 Conjugate, PCV13 (Prevnar 13) Unknown Completed [facility] Pneumococcal 13 Conjugate, PCV13 (Prevnar 13) Unknown Completed [facility] Polio (IPV/OPV) Unknown Completed [facility] TDAP Unknown Completed [facility] Varicella (varivax)(chicken pox) Unknown Completed [facility] Varicella (varivax)(chicken pox) Unknown Completed [facility] Meningococcal Polysaccharide (groups A, C, Y and W-135) conjugate vaccine (MCV4P) Unknown Completed [facility] Meningococcal Polysaccharide (groups A, C, Y and W-135) conjugate vaccine (MCV4P) Unknown Completed [facility] Meningococcal B, OMV Unknown Completed [facility] DTAP Unknown Completed [facility] HIB 4 Dose Schedule Unknown Completed [facility] HEPATITIS A Unknown Completed [facility] HEPATITIS A Unknown Completed [facility] HPV Unknown Completed [facility] HPV Unknown Completed [facility] MMR Unknown Completed [facility] MMR Unknown Completed [facility] Pneumococcal 13 Conjugate, PCV13 (Prevnar 13) Unknown Completed [facility] Pneumococcal 13 Conjugate, PCV13 (Prevnar 13) Unknown Completed [facility] Pneumococcal 13 Conjugate, PCV13 (Prevnar 13) Unknown Completed [facility] Pneumococcal 13 Conjugate, PCV13 (Prevnar 13) Unknown Completed [facility] Polio (IPV/OPV) Unknown Completed [facility] TDAP Unknown Completed [facility] Varicella (varivax)(chicken pox) Unknown Completed [facility] Varicella (varivax)(chicken pox) Unknown Completed [facility] Meningococcal Polysaccharide (groups A, C, Y and W-135) conjugate vaccine (MCV4P) Unknown Completed [facility] Meningococcal Polysaccharide (groups A, C, Y and W-135) conjugate vaccine (MCV4P) Unknown Completed [facility] Meningococcal B, OMV Unknown Completed [facility] DTAP Unknown Completed [facility] HIB 4 Dose Schedule Unknown Completed [facility] HEPATITIS A Unknown Completed [facility] HEPATITIS A Unknown Completed [facility] HPV Unknown Completed [facility] HPV Unknown Completed [facility] MMR Unknown Completed [facility] MMR Unknown Completed [facility] Pneumococcal 13 Conjugate, PCV13 (Prevnar 13) Unknown Completed [facility] Pneumococcal 13 Conjugate, PCV13 (Prevnar 13) Unknown Completed [facility] Pneumococcal 13 Conjugate, PCV13 (Prevnar 13) Unknown Completed [facility] Pneumococcal 13 Conjugate, PCV13 (Prevnar 13) Unknown Completed [facility] Polio (IPV/OPV) Unknown Completed [facility] TDAP Unknown Completed [facility] Varicella (varivax)(chicken pox) Unknown Completed [facility] Varicella (varivax)(chicken pox) Unknown Completed [facility] Meningococcal Polysaccharide (groups A, C, Y and W-135) conjugate vaccine (MCV4P) Unknown Completed [facility] Meningococcal Polysaccharide (groups A, C, Y and W-135) conjugate vaccine (MCV4P) Unknown Completed [facility] Meningococcal B, OMV Unknown Completed [facility] HIB 4 Dose Schedule Unknown Completed [facility] HIB 4 Dose Schedule Unknown Completed [facility] Hep B, Adol or Pedi Dosage Unknown Completed [facility] Pediarix (dtap/hep B/ipv) Unknown Completed [facility] Pediarix (dtap/hep B/ipv) Unknown Completed [facility] Pneumococcal 7 Conjugate, PCV7 (Prevnar7) Unknown Completed [facility] Pneumococcal 7 Conjugate, PCV7 (Prevnar7) Unknown Completed [facility] HIB 4 Dose Schedule Unknown Completed [facility] Pediarix (dtap/hep B/ipv) Unknown Completed [facility] Pneumococcal 7 Conjugate, PCV7 (Prevnar7) Unknown Completed [facility] DTAP Unknown Completed [facility] Pneumococcal 7 Conjugate, PCV7 (Prevnar7) Unknown Completed [facility] DTAP Unknown Completed [facility] HIB 4 Dose Schedule Unknown Completed [facility] HEPATITIS A Unknown Completed [facility] HEPATITIS A Unknown Completed [facility] HPV Unknown Completed [facility] HPV Unknown Completed [facility] MMR Unknown Completed [facility] MMR Unknown Completed [facility] Pneumococcal 13 Conjugate, PCV13 (Prevnar 13) Unknown Completed [facility] Pneumococcal 13 Conjugate, PCV13 (Prevnar 13) Unknown Completed [facility] Pneumococcal 13 Conjugate, PCV13 (Prevnar 13) Unknown Completed [facility] Pneumococcal 13 Conjugate, PCV13 (Prevnar 13) Unknown Completed [facility] Polio (IPV/OPV) Unknown Com[facility] TDAP Unknown [facility] [facility] Varicella (varivax)(chicken pox) Unknown Completed [facility] Varicella (varivax)(chicken pox) Unknown Completed [facility] Meningococcal Polysaccharide (groups A, C, Y and W-135) conjugate vaccine (MCV4P) Unknown Completed [facility] Meningococcal Polysaccharide (groups A, C, Y and W-135) conjugate vaccine (MCV4P) Unknown Completed [facility] Meningococcal B, OMV Unknown Completed [facility] Vital Signs Vital Name Observation Time Observation Value Comments S ource Systolic blood pressure 2023-12-24 17:58:00 116 mm[Hg] [facility] Diastolic blood pressure 2023-12-24 17:58:00 79 mm[Hg] [facility] Heart rate 2023-12-24 17:58:00 90 /min [facility] Body temperature 2023-12-24 17:58:[address] [facility] Respiratory rate 2023-12-24 17:58:00 18 /min [facility] Body height 2023-12-24 17:58:00 160 cm [facility] Body weight 2023-12-24 17:58:00 41.232 kg [facility] BMI 2023-12-24 17:58:00 16.10 kg/m2 [facility] Oxygen saturation in Arterial blood by Pulse oximetry 2023-12-24 17:58:00 97 /min [facility] Systolic blood pressure 2021-12-27 19:33:00 118 mm[Hg] [facility] Diastolic blood pressure 2021-12-27 19:33:00 77 mm[Hg] [facility] Heart rate 2021-12-27 19:33:00 93 /min [facility] Respiratory rate 2021-12-27 19:33:00 16 /min [facility] Body weight 2021-12-27 19:33:00 39.179 kg [facility] Procedures Procedure Date / Time Performed Performing Clinician Source CBC WITH DIFF 2023-12-24 18:44:00 Danie Perez U [facility] GLYCOSYLATED HEMOGLOBIN (A1C) 2023-12-24 18:44:[address] [facility] INSURANCE CORRESPONDENCE 2023-02-10 05:01:00 Doc tor Unassigned, Pease [facility] Encounters Start Date/Time End Date/Time Encounter Type Admission Type Attending Clinicians Care Facility Care Department Encounter ID Source 2021-07-18 08:31:39 Emergency [facility] [id number] [facility] 2024-05-09 14:30:00 2024-05-09 14:30:00 Outpatient R DANIE PEREZ OGECHUKWU [facility] [id number] [facility] 2024-05-05 00:00:00 2024-05-06 08:02:42 Telephone Danie Perez [facility] 1.2.840.114 350.1.13.10 4.2.7.2.686 [id number] [facility] 2024-05-04 00:00:00 2024-05-04 16:23:34 Nurse Triage Jacki Travis Rebecca L [facility] 1.2.840.114 350.1.13.10 4.2.7.2.686 [id number] [facility] 2024-03-24 11:00:00 2024-03-24 11:00:00 [facility] [id number] 2024-03-10 13:00:00 2024-03-10 13:00:00 Outpatient R TERESA POST [facility] [id number] [facility] 2023-12-25 00:00:00 2023-12-25 00:00:00 Telephone Danie Perez [facility] 1.2.840.114 350.1.13.10 4.2.7.2.686 [id number] [facility] 2023-12-24 13:45:00 2023-12-24 14:00:00 Microelectronics Engineer Visit 2, Adc Lab Danie Perez [facility] 1.2.840.114 350.1.13.10 4.2.7.2.686 [id number] [facility] 2023-12-24 13:00:00 2023-12-24 13:29:09 Outpatient R DANIE PEREZ OGECHUKWU [facility] [id number] [facility] 2023-12-24 13:00:00 2023-12-24 13:29:09 Office Visit Danie Perez [facility] 1.2.840.114 350.1.13.10 4.2.7.2.686 [id number] [facility] 2023-04-03 14:00:00 2023-04-03 14:00:00 Outpatient R LLUVIA SAMAYOA [facility] [id number] [facility] 2023-03-23 14:00:00 2023-03-23 14:00:00 Outpatient R LLUVIA SAMAYOA [facility] [id number] [facility] 2023-03-23 00:00:00 2023-03-23 00:00:00 Letter (Out) Lluvia Samayoa [facility] 1.2.840.114 350.1.13.10 4.2.7.2.686 [id number] [facility] 2023-02-10 00:00:00 2023-02-10 00:00:00 Orders Only Doctor Unassigned, [facility] 1.2.840.114 350.1.13.10 4.2.7.2.686 [id number] [facility] 2022-01-10 13:00:00 2022-01-10 13:00:00 Outpatient R YARED MENDOSA [facility] [id number] [facility] 2021-12-27 14:30:00 2021-12-27 15:03:18 Outpatient R HORTENSIA PAL [facility] [id number] [facility] 2021-12-27 14:30:00 2021-12-27 15:03:18 Office Visit Hortensia Pal [facility] 1.840.114 350.1.13.10 4.2.7.2.686 [id number] [facility] 2021-12-27 14:30:00 2021-12-27 15:03:18 Outpatient HORTENSIA ESPARZA [facility] [id number] [facility] 2021-12-14 08:40:00 2021-12-14 08:53:05 Outpatient LIEN DHILLON [facility] [id number] [facility] 2021-12-14 08:40:00 2021-12-14 08:53:05 Microelectronics Engineer Visit Nurse, Lien Villasenor [facility] 1.840.114 350.1.13.10 4.2.7.2.686 [id number] [facility] 2021-12-13 09:50:00 2021-12-13 10:37:19 Outpatient HORTENSIA ESPARZA [facility] [id number] [facility] 2021-12-13 09:50:00 2021-12-13 10:37:19 Outpatient HORTENSIA ESPARZA [facility] [id number] [facility] 2021-12-13 08:10:00 2021-12-13 08:10:00 Outpatient HORTENSIA ESPARZA [facility] [id number] [facility] 2021-12-13 00:00:00 2021-12-13 00:00:00 Orders Only Doctor Unassigned, Pease [facility] 1..840.114 350.1.13.10 4.2.7.2.686 [id number] [facility] 2021-11-22 09:12:00 2021-11-22 09:48:00 Emergency X BRAYAN NARVAEZ [facility] [id number] [facility] 2021-11-22 09:12:00 2021-11-22 09:48:00 Emergency Brayan Narvaez [facility] 1.2840.114 350.1.13.10 4.2.7.2.686 [id number] [facility] 2021-05-30 15:50:00 2021-05-30 15:50:00 Outpatient HORTENSIA ESPARZA [facility] [id number] [facility] 2021-04-21 11:06:47 2021-04-21 11:56:04 Office Visit Thuy Waller [facility] 1.2840.114 350.1.13.10 4.2.7.2.686 [id number] [facility] 2021-04-21 10:40:00 2021-04-21 10:40:00 Outpatient THUY HUERTA [facility] [id number] [facility] 2021-04-21 00:00:00 2021-04-21 00:00:00 Letter (Out) Thuy Waller [facility] 1.2840.114 350.1.13.10 4.2.7.2.686 [id number] [facility] 2021-04-05 11:20:00 2021-04-05 11:20:00 Outpatient THUY HUERTA [facility] [id number] [facility] 2021-03-31 16:02:00 2021-03-31 21:18:[address] [facility] 1.2840.114 350.1.13.10 4.2.7.2.686 [id number] [facility] 2021-03-17 00:00:00 2021-03-17 00:00:00 Telephone Lien Cee [facility] 1.2840.114 350.1.13.10 4.2.7.2.686 [id number] [facility] 2021-03-08 10:58:33 2021-03-08 11:51:15 Office Visit JayeLien garcia [facility] 1.84.114 350.1.13.10 4.2.7.2.686 [id number] [facility] 2021-03-08 11:20:00 2021-03-08 11:20:00 Outpatient R JAYE LIEN [facility] [id number] [facility] 2021-02-22 10:45:00 2021-02-22 11:45:47 Outpatient PROMISE DE LA TORRE [facility] [id number] [facility] 2021-02-22 10:40:09 2021-02-22 11:45:47 Ancillary Visit Deniz Hines Craig L [facility] 1.840.114 350.1.13.10 4.2.7.2.686 [id number] [facility] 2021-02-01 10:23:45 2021-02-01 11:20:58 Office Visit Madi Ivey [facility] 1.840.114 350.1.13.10 4.2.7.2.686 [id number] [facility] 2021-02-01 10:40:00 2021-02-01 10:40:00 Outpatient MADI BURLESON [facility] [id number] [facility] 2021-01-28 09:43:18 2021-01-28 09:58:18 Office Visit Augustine Kaye [facility] 1.840.114 350.1.13.10 4.2.7.2.686 [id number] [facility] 2021-01-28 09:45:00 2021-01-28 09:45:00 Outpatient AUGUSTINE QUEEN [facility] [id number] [facility] 2021-01-28 00:00:00 2021-01-28 00:00:00 Letter (Out) Augustine Kaye [facility] 1.2.840.114 350.1.13.10 4.2.7.2.686 [id number] [facility] 2021-01-13 10:36:15 2021-01-13 23:59:00 Outpatient PROMISE DE LA TORRE [facility] [id number] [facility] 2021-01-13 10:36:15 2021-01-13 23:59:00 Hospital Encounter Promise Saleem [facility] 1.2.840.114 350.1.13.10 4.2.7.2.686 [id number] [facility] 2021-01-13 00:00:00 2021-01-13 00:00:00 Outpatient PROMISE DE LA TORRE [facility] [id number] [facility] 2021-01-13 00:00:00 2021-01-13 00:00:00 Orders Only Doctor Unassigned, Pease [facility] 1.2.840.114 350.1.13.10 4.2.7.2.686 [id number] [facility] 2021-01-03 00:00:00 2021-01-03 00:00:00 Outpatient PROMISE DE LA TORRE CRAIG [facility] [id number] [facility] 2020-12-24 08:44:09 2020-12-24 23:59:00 Outpatient PROMISE DE LA TORRE [facility] [id number] [facility] 2020-12-24 08:44:09 2020-12-24 23:59:00 Outpatient PROMISE SALEEM [facility] [id number] [facility] 2020-12-24 08:44:09 2020-12-24 23:59:00 Hospital Encounter Promise Saleem [facility] lola Yang 1.2.840.114 350.1.13.10 4.2.7.2.686 [id number] [facility] 2020-12-24 08:30:48 2020-12-24 09:19:56 Office Visit Promise Saleem [facility] lola Yang 1.2.840.114 350.1.13.10 4.2.7.2.686 [id number] [facility] 2020-12-24 00:00:00 2020-12-24 00:00:00 Letter (Out) Augustine Kaye [facility] lola Yang 1.2.840.114 350.1.13.10 4.2.7.2.686 [id number] [facility] 2020-12-14 09:10:37 2020-12-14 09:51:05 Office Visit Lien Cee [facility] 1.2.840.114 350.1.13.10 4.2.7.2.686 [id number] [facility] 2020-12-14 09:40:00 2020-12-14 09:40:00 Outpatient R LIEN CEE [facility] [id number] [facility] 2020-11-17 00:00:00 2020-11-17 00:00:00 Telephone Lien Cee [facility] 1.2.840.114 350.1.13.10 4.2.7.2.686 [id number] [facility] 2020-11-16 17:00:00 2020-11-16 17:15:00 Billing Encounter Lien Cee [facility] 1.2.840.114 350.1.13.10 4.2.7.2.686 [id number] [facility] 2020-11-16 15:35:35 2020-11-16 16:31:31 Office Visit Lien Cee [facility] 1.2.840.114 350.1.13.10 4.2.7.2.686 [id number] [facility] 2020-11-16 15:40:00 2020-11-16 15:40:00 Outpatient R LIEN CEE [facility] [id number] [facility] 2020-11-16 00:00:00 2020-11-16 00:00:00 Orders Only Doctor Unassigned, Pease [facility] 1.2.840.114 350.1.13.10 4.2.7.2.686 [id number] [facility] 2019-05-23 00:00:00 2019-05-23 00:00:00 Telephone Gen Weems [facility] 1.2.840.114 350.1.13.10 4.2.7.2.686 [id number] [facility] 2019-05-12 10:07:34 2019-05-12 11:01:28 Office Visit Gen Weems [facility] 1.2.840.114 350.1.13.10 4.2.7.2.686 [id number] [facility] 2019-05-12 00:00:00 2019-05-12 00:00:00 Letter (Out) Gen Weems [facility] 1.2.840.114 350.1.13.10 4.2.7.2.686 [id number] [facility] Results Test Description Test Time Test Comments Results Result Co mments [facility] 19:30:28* Test Item Value Reference Range Interpretation Comme nts HGB A1C (test code = 4548-4) 5.1 % 4.0-5.7 GUILLERMO (test code = GUILLERMO) Reference RangesNormal: <5.7%Prediabetes: 5.7 - 6.4%Diabetes: > 6.5% Lab Interpretation (test code = 02917-4) Normal [facility] with [id number] 18:57:50* Test Item Value Reference Range Interpretation [...] 34.0 g/dL 31.2-35.0 RDW-SD (test code = 03844-0) 41.2 fL 38.5-51.6 RDW-CV (test code = 788-0) 12.5 % 12.1-15.4 PLT (test code = 777-3) 404 150-328 H MPV (test code = 43427-2) 8.7 fL 9.8-13.0 L NRBC/100 WBC (test code = 8445837530) 0.0 0.0-10.0 NRBC x10^3 (test code = 0747190597) See_Comment [Automated messa ge] The system which generated this result transmitted reference range: 10*3/?L. The reference range was not used to interpret this result as normal/abnormal. GRAN MAT (NEUT) % (test code = 770-8) 76.4 % IMM GRAN % (test code = 7002780509) 1.00 % LYMPH % (test code = 736-9) 10.9 % MONO % (test code = 5905-5) 9.3 % EOS % (test code = 713-8) 1.9 % BASO % (test code = 706-2) 0.5 % GRAN MAT x10^3(ANC) (test code = 9575213516) 9.58 10*3/uL 1.99-6.95 H IMM GRAN x10^3 (test code = 7052749465) 0.12 10*3/uL 0.00-0.06 H LYMPH x10^3 (test code = 731-0) 1.37 10*3/uL 1.09-3.23 MONO x10^3 (test code = 742-7) 1.17 10*3/uL 0.36-1.02 H EOS x10^3 (test code = 711-2) 0.24 10*3/uL 0.06-0.53 BASO x10^3 (test code = 704-7) 0.06 10*3/uL 0.01-0.09 Lab Interpretation (test code = 60689-3) Abnormal [facility] with [id number] 18:57:50* Test Item Value Reference Range Interpretation [...] 34.0 g/dL 31.2-35.0 RDW-SD (test code = 34292-8) 41.2 fL 38.5-51.6 RDW-CV (test code = 788-0) 12.5 % 12.1-15.4 PLT (test code = 777-3) 404 150-328 H MPV (test code = 40770-4) 8.7 fL 9.8-13.0 L NRBC/100 WBC (test code = 1426956906) 0.0 0.0-10.0 NRBC x10^3 (test code = 8082827011) See_Comment [Automated messa ge] The system which generated this result transmitted reference range: 10*3/?L. The reference range was not used to interpret this result as normal/abnormal. GRAN MAT (NEUT) % (test code = 770-8) 76.4 % IMM GRAN % (test code = 8759009496) 1.00 % LYMPH % (test code = 736-9) 10.9 % MONO % (test code = 5905-5) 9.3 % EOS % (test code = 713-8) 1.9 % BASO % (test code = 706-2) 0.5 % GRAN MAT x10^3(ANC) (test code = 5342487745) 9.58 10*3/uL 1.99-6.95 H IMM GRAN x10^3 (test code = 2007085475) 0.12 10*3/uL 0.00-0.06 H LYMPH x10^3 (test code = 731-0) 1.37 10*3/uL 1.09-3.23 MONO x10^3 (test code = 742-7) 1.17 10*3/uL 0.36-1.02 H EOS x10^3 (test code = 711-2) 0.24 10*3/uL 0.06-0.53 BASO x10^3 (test code = 704-7) 0.06 10*3/uL 0.01-0.09 Lab Interpretation (test code = 40052-9) Abnormal [facility] Notes Date/Time Note Provider Source 2024-05-05 16:55:10 Pt states went to ER yesterday ([place]) and was dx'ed with kidney failure (picked up records today, pt reports walked out AMA prior to given medical advice". Pt reports continues to have chest pain and rt arm pain that is "intermittent" for 3 weeks. Advised pt to return to ER for evaluation and take medical records with him. Pt reports would still like to keep appt with LILY Wesley for 05/09/2024, offered sooner appt declined. ER precautions discussed pt verbalizes understanding, unsure if he will proceed to ER. Forwarding to provider for review. Michaela Faith RN [facility] 2024-05-05 16:45:58 [facility] [id number] 18 yo Male Sharp pain down right arm, chest pain, body tremors x 3 wks Patient currently has appointment for 05/09. Does not want to speak with nurse about symptoms. Patient disconnected. Sent to [facility] Nurse thread. Benigno Castro [facility] 2024-05-04 15:57:00 Regarding: sharp pain in R [...] to talk with nurse Jacki Travis RN [facility] 2024-05-04 15:57:00 Adult Triage Assessment Last Clinic [...] Disposition SEVERE chest pain Protocols used: Chest Ngmk-LCTEU-SE [facility] 2024-05-04 15:57:00 Routing to correct clinic Camelia Todd LVN [facility] 2024-05-04 15:57:00 Call placed to pt to inquire if he went to ER, X2 attempts - 1st phone with static unable to hear pt, 2nd attempt no option given to LVM. Michaela Faith RN [facility] 2024-05-04 15:57:00 See other TE dated 05/05/2024. T [facility] 2023-12-24 13:45:00 Images from the original note were not included. Venipuncture collection performed by clean technique on the right anticubitus. Total of 1 attempts were made. Slight pressure and a bandage/dressing were applied to the site(s). The patient experienced no complications. The following specimens were processed according to instructions and sent to [facility] laboratories per lab order on 12/24/2023: LT BLUE SST 3 RED LAV 2 PPT DK GREEN (LiHep) DK GREEN (SodH) BUCK DK BLUE (K2) DK BLUE (S) ACD Blood Culture NIPT/NTD T [facility]
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
[2024-05-21 18:43] VITALS: BP 123/85; TEMP 98.9; O2SAT 95
== END 2024-05-21 18:21 | disposition home or self-care (01) ==
LOC: ER 13:50
DX: Z53.21 Procedure and treatment not carried out due to patient leaving prior to being seen by health care provider (principal)
CPT/HCPCS: 99281